=== PATIENT | female | born 1960 | race Caucasian/White ===

== ENCOUNTER → 2017-03-22 13:57 | Outpatient (POV) | payer MEDICARE, SELFPAY | PROVIDERS: Visit Provider Internal Medicine | DX: Z00.00 Encounter for general adult medical examination without abnormal findings (principal) ==

== ENCOUNTER → 2017-05-17 08:37 | Outpatient (CLI) | payer MEDICARE, SELFPAY ==
[2017-05-17 09:13] LABS: Basophils % 0.3 % (0.1-2.0); Eosinophils # 0.1 K/mm3 (0.0-0.4); Eosinophils % 1.7 % (0.1-12.0); Hematocrit 41.9 % (37.0-47.0); Hemoglobin 13.8 g/dL (12.2-16.2); Lymphocytes # 1.6 K/mm3 (0.7-4.5); Lymphocytes % 24.5 K/mm3 (10-50); Mean Corpuscular HGB Conc 32.9 g/dL (31.8-35.4); Mean Corpuscular Hemoglobin 30.6 pg (27.0-31.2); Mean Corpuscular Volume 93.2 fl (81-99); Mean Platelet Volume 7.7 fl (7.4-10.4); Monocytes # 0.3 K/mm3 (0.1-1.0); Monocytes % 4.4 % (1.7-9.3); Neutrophils # 4.5 K/mm3 (1.8-7.8); Neutrophils % 69.1 % (37.0-80.0); Platelet Count 196 K/mm3 (142-424); Red Cell Distribution Width 12.4 % (11.5-17.5); White Blood Count 6.6 K/mm3 (4.8-10.8)
[2017-05-17 09:23] LABS: Alanine Aminotransferase 32 U/L (12-78); Albumin Level 3.8 gm/dL (3.4-5.0); Albumin/Globulin Ratio 1.1 (1.1-1.8); Alkaline Phosphatase 73 U/L (46-116); Anion Gap 6.9 mEq/L (5-15); Aspartate Amino Transferase 22 U/L (15-37); Bilirubin,Total 0.4 mg/dL (0.2-1.0); Blood Urea Nitrogen 12 mg/dL (7-18); Carbon Dioxide 33 mmol/L (21.0-32.0); Chloride 104 mmol/L (98-107); Chol/HDL Ratio 3.4 (1-3.5); Cholesterol 158 mg/dL (140-200); Creatinine,Serum 0.77 mg/dL (0.55-1.02); Estimated Glomerular Filt Rate 77 ml/min (>60); GFR (African American) 93 ML/MIN (>60); Globulin 3.6 gm/dl (1.3-3.2); Glucose 104 mg/dL (74-106); HDL Cholesterol 46 mg/dL (29-89); Iron 61 ug/dl (28-170); LDL Cholesterol 83 mg/dL (0-130); Potassium 3.9 mmoL/L (3.5-5.1); Sodium 140 mmol/L (136-145); Total Protein,Serum 7.4 gm/dL (6.4-8.2); Triglycerides 146 mg/dL (30-200); VLDL Cholesterol 29 mg/dL (0-40)
[2017-05-18 15:47] LABS: Vitamin D 25 Hydroxy 44.6 ng/mL (30.0-100.0)
== END ==
PROVIDERS: Visit Provider Family Medicine
DX: E61.1 Iron deficiency (principal); E78.2 Mixed hyperlipidemia; E87.6 Hypokalemia; E55.9 Vitamin D deficiency, unspecified
CPT/HCPCS: 36415; 80053; 80061; 82652; 83540; 85025

== ENCOUNTER → 2017-08-22 12:54 | Outpatient (CLI) | payer MEDICARE, SELFPAY ==
--- NOTE | 2017-08-22 12:58 | CT_ITS ---
CT lung screening EXAM: CT LUNG LOW DOSE WO CONTRAST HISTORY: Asymptomatic 57 year old female with 60 pack-year smoking history quit 9 years ago ITS.REASON: FORMER SMOKER ORDERING PHYSICIAN: Kevyn Fox MD PATIENT AGE: 57 years COMPARISON: 06/25/2014 TECHNIQUE: The exam was performed on a GE Light Speed [address] scanner using 2.90 mGy CTDI. A low dose helical CT CHEST was performed on a multi-detector scanner. All CT scans at the facility use one or more dose reduction, viz: automated exposure control; ma/kV adjustment per patient size (including targeted exams where dose is matched to indication; i.e. head); or iterative reconstruction technique. The LDCT was performed in a facility that meets the criteria for the screening program. Data regarding this exam was submitted to ACR which is an approved registry. The order for this exam indicates that it came as a result of a lung cancer screening counseling shard decision-making visit that included all the elements required of such a visit including smoking cessation. The radiologist interpreting this exam meets the CMS criteria for the LDCT lung cancer screening program. The exam is reported using the Lung-RADS classification scale and reported to the ACR registry. NOTE: This study was performed for the specific purposes of lung cancer screening and is not an alternative to diagnostic chest CT. RADIATION DOSE: CTDI vol(CT dose Index-volume) = 2.90mG DLP (Dose Length Product) = 101.48 mGcm FINDINGS: There are severe centrilobular emphysematous changes with bullous change in the right apex. There are scattered fibrotic areas. There is a stable 6 mm nodule in the left upper lobe centrally. This is noncalcified. A 3 mm nodules present in the left upper lobe anteriorly not readily apparent on the previous exam. This is noncalcified. Calcified granulomas present in the left lung base. An additional 4 mm noncalcified nodule present in the left lower lobe laterally. This is stable. Calcified mediastinal and hilar lymph nodes are present. Coronary artery calcifications are noted. IMPRESSION: 1. Lung RADS Category: 3, probably benign. There are stable noncalcified nodules in the left upper and left lower lobe and a new 3 mm noncalcified nodule in the left upper lobe 2. Other findings: Centrilobular emphysema. Coronary artery disease Old granulomatous disease RECOMMENDATIONS: 12 month LDCT follow-up
== END ==
PROVIDERS: PCP Family Medicine; Visit Provider Internal Medicine
DX: Z87.891 Personal history of nicotine dependence (principal); Z12.2 Encounter for screening for malignant neoplasm of respiratory organs

== ENCOUNTER → 2017-09-20 14:51 | Outpatient (POV) | payer MEDICARE, SELFPAY | PROVIDERS: PCP Family Medicine; Visit Provider Internal Medicine | DX: Z00.00 Encounter for general adult medical examination without abnormal findings (principal) ==

== ENCOUNTER → 2017-10-03 12:48 | Outpatient (CLI) | payer MEDICARE, SELFPAY ==
[2017-10-03 13:31] LABS: Hemoglobin A1C 5.9 % (0.0-7.0)
[2017-10-03 13:46] LABS: Basophils % 0.4 % (0.1-2.0); Eosinophils # 0.1 K/mm3 (0.0-0.4); Eosinophils % 1.7 % (0.1-12.0); Hematocrit 40.8 % (37.0-47.0); Hemoglobin 12.9 g/dL (12.2-16.2); Lymphocytes % 30.4 K/mm3 (10-50); Mean Corpuscular HGB Conc 31.7 g/dL (31.8-35.4); Mean Corpuscular Hemoglobin 29.5 pg (27.0-31.2); Mean Corpuscular Volume 93.1 fl (81-99); Mean Platelet Volume 7.3 fl (7.4-10.4); Monocytes # 0.4 K/mm3 (0.1-1.0); Monocytes % 5.4 % (1.7-9.3); Neutrophils # 4.1 K/mm3 (1.8-7.8); Platelet Count 209 K/mm3 (142-424); Red Blood Count 4.38 M/mm3 (4.20-5.40); Red Cell Distribution Width 12.8 % (11.5-17.5); White Blood Count 6.5 K/mm3 (4.8-10.8)
[2017-10-03 14:39] LABS: Alanine Aminotransferase 32 U/L (12-78); Albumin Level 3.8 gm/dL (3.4-5.0); Albumin/Globulin Ratio 1.2 (1.1-1.8); Alkaline Phosphatase 85 U/L (46-116); Anion Gap 5.5 mEq/L (5-15); Aspartate Amino Transferase 17 U/L (15-37); Bilirubin,Total 0.5 mg/dL (0.2-1.0); Blood Urea Nitrogen 10 mg/dL (7-18); Calcium 9.2 mg/dL (8.5-10.1); Carbon Dioxide 36 mmol/L (21.0-32.0); Chloride 105 mmol/L (98-107); Creatinine,Serum 1.02 mg/dL (0.55-1.02); Estimated Glomerular Filt Rate 55 ml/min (>60); GFR (African American) 67 ML/MIN (>60); Globulin 3.1 gm/dl (1.3-3.2); Glucose 99 mg/dL (74-106); Magnesium 2.1 mg/dL (1.4-2.2); Potassium 4.5 mmoL/L (3.5-5.1); Sodium 142 mmol/L (136-145); Total Protein,Serum 6.9 gm/dL (6.4-8.2)
== END ==
PROVIDERS: Visit Provider Internal Medicine
DX: I25.10 Atherosclerotic heart disease of native coronary artery without angina pectoris (principal); I25.5 Ischemic cardiomyopathy; E78.2 Mixed hyperlipidemia; E61.1 Iron deficiency; R06.02 Shortness of breath; Z79.899 Other long term (current) drug therapy
CPT/HCPCS: 36415; 80053; 83036; 83735; 83880; 85025

== ENCOUNTER 2017-11-07 22:06 | Observation (INO) ==
[2017-11-07 22:28] LABS: Basophils % 0.4 % (0.1-2.0); Eosinophils # 0.1 K/mm3 (0.0-0.4); Eosinophils % 1.1 % (0.1-12.0); Hematocrit 42.8 % (37.0-47.0); Hemoglobin 13.7 g/dL (12.2-16.2); Lymphocytes # 2.5 K/mm3 (0.7-4.5); Lymphocytes % 25.9 K/mm3 (10-50); Mean Corpuscular HGB Conc 32.1 g/dL (31.8-35.4); Mean Corpuscular Hemoglobin 29.6 pg (27.0-31.2); Mean Corpuscular Volume 92.2 fl (81-99); Mean Platelet Volume 7.3 fl (7.4-10.4); Monocytes # 0.6 K/mm3 (0.1-1.0); Monocytes % 6.3 % (1.7-9.3); Neutrophils # 6.5 K/mm3 (1.8-7.8); Neutrophils % 66.3 % (37.0-80.0); Platelet Count 242 K/mm3 (142-424); Red Blood Count 4.64 M/mm3 (4.20-5.40); Red Cell Distribution Width 12.7 % (11.5-17.5); White Blood Count 9.8 K/mm3 (4.8-10.8)
[2017-11-07 22:42] LABS: Alanine Aminotransferase 35 U/L (12-78); Albumin Level 3.9 gm/dL (3.4-5.0); Alkaline Phosphatase 101 U/L (46-116); Anion Gap 2.8 mEq/L (5-15); Aspartate Amino Transferase 21 U/L (15-37); Bilirubin,Total 0.4 mg/dL (0.2-1.0); Blood Urea Nitrogen 8 mg/dL (7-18); Calcium 9.3 mg/dL (8.5-10.1); Carbon Dioxide 35 mmol/L (21.0-32.0); Chloride 106 mmol/L (98-107); Glucose 111 mg/dL (74-106); Potassium 3.8 mmoL/L (3.5-5.1); Sodium 140 mmol/L (136-145); Total Protein,Serum 7.9 gm/dL (6.4-8.2)
--- NOTE | 2017-11-07 23:26 | Emergency Department Note ---
ED Disposition Clinical Impression: Acute exacerbation of chronic obstructive airways disease Dyspnea Qualifiers: Dyspnea type: unspecified Qualified Code(s): R06.00 - Dyspnea, unspecified Disposition: Admitted as Observation Condition on Discharge: Good - Critical Care Critical Care Time: No Attestation: On 11/07/17, the high probability of a clinically significant, sudden or life threatening deterioration of the following system(s) required my full and direct attention, intervention and personal management. The time I documented below is in addition to time spent performing reported procedures but includes the following listed in this critical care notation. Medical Decision Making - Medical Records Medical records reviewed: Yes: I reviewed the patient's medical records. - Cesar Inquiry Pt receiving controlled substance: No Vital Signs: 11/07/17 22:07 Temperature 98 F Temperature Source Oral Pulse Rate [Right Radial] 82 Respiratory Rate 18 Blood Pressure [Right Arm] 151/94 Blood Pressure Mean [Right Arm] 113 02 Sat by Pulse Oximetry 98 - Lab Data Lab results reviewed: Yes: I reviewed the patient's lab results. Lab Results 11/07/17 22:18: WBC 9.8, RBC 4.64, Hgb 13.7, Hct 42.8, MCV 92.2, MCH 29.6, MCHC 32.1, RDW 12.7, Plt Count 242, MPV 7.3 L, Neut % (Auto) 66.3, Lymph % (Auto) 25.9, [place] % (Auto) 6.3, Eos % (Auto) 1.1, Baso % (Auto) 0.4, Neut # (Auto) 6.5, Lymph # (Auto) 2.5, [place] # (Auto) 0.6, Eos # (Auto) 0.1, Baso # (Auto) 0.0 11/07/17 22:18: Sodium 140, Potassium 3.8, Chloride 106, Carbon Dioxide 35 H, Anion Gap 2.8 L, BUN 8, Creatinine 0.95, Estimated Creat Clear 61, Estimated GFR 60, Est GFR ( Amer) 73, Glucose 111 H, Calcium 9.3, Total Bilirubin 0.4, AST 21, ALT 35, Alkaline Phosphatase 101, Troponin I < 0.02, Total Protein 7.9, Albumin 3.9, Globulin 4.0 H, Albumin/Globulin Ratio 1.0 L Result diagrams: 11/07/17 22:18 11/07/17 22:18 Orders (Tests/Meds): ED MEDICATIONS Discontinued Medications Generic Name Dose Route Start Last Admin Trade Name Lenore PRN Reason Stop Dose Admin Methylprednisolone Sodium Succinate 125 mg 11/07/17 22:12 11/07/17 22:29 Solu-Medrol 125mg/2ml Vial IV 11/07/17 22:13 125 mg ONCE ONE Administration ORDERS Category Date Time Status XR chest 2V Stat Exams 11/07/17 22:12 Taken Lactic Acid Stat Lab 11/07/17 22:30 Received Blood Culture Stat Micro 11/07/17 22:29 Ordered - Radiology Data #1 Image(s): Chest Image Reviewed: Yes I reviewed the patient's radiology image Preliminary Findings: Normal/NAD - ECG Data Tracing #1 I reviewed this ECG and interpreted as documented below: Normal Sinus Rhythm: Yes Ischemic changes: non-specific ST-T wave changes ECG compared to prior tracings: there are no significant changes - Physician Consults Physician Consulted: dudley Reason -: Admission Resp/SOB HPI - General Chief Complaint: Shortness of Breath/Dyspnea Stated Complaint: Shortness of Breath Time Seen by Provider: 11/07/17 22:30 Mode of Arrival: EMS Limitations: No Limitations Description of Symptoms (Recalled from ER Triage Doc. by RN): Pt states she started having shortness of breath at approx 1700 today. pt states she used her ventolin inhaler with not much relief. pt wears home o2 at night. - History of Present Illness at about 1700 has generalized weakness and diaphoresis with hx of cad and copd - still with weak felling and presents to ed for gordy SCHMITT Complaint: shortness of breath Onset (ago): hour(s) Severity: moderate Known history of: COPD, other (cad) Treatment prior to arrival: bronchodilator - Related Data Home oxygen amount: 2 liters Home Medications Medication Instructions Recorded Confirmed Albuterol Sulfate [Albuterol HFA 2 puff INHALATION NEEDED PRN 11/07/17 11/07/17 Inhaler] Atorvastatin Calcium [Atorvastatin 80 mg PO DAILY 11/07/17 11/07/17 80mg Tab] Budesonide/Formoterol Fumarate 2 puff INHALATION BID 11/07/17 11/07/17 [Symbicort 160-4.5 Mcg Inhaler] Clopidogrel Bisulfate [Plavix 75mg 75 mg PO DAILY 11/07/17 11/07/17 Tab] Losartan Potassium 100 mg PO DAILY 11/07/17 11/07/17 Metoprolol Succinate 200 mg PO DAILY 11/07/17 11/07/17 Pantoprazole Sodium [Protonix 40mg 40 mg PO DAILY 11/07/17 11/07/17 tablet] Spironolactone 12.5 mg PO DAILY 11/07/17 11/07/17 Sucralfate [Sucralfate 1gm 1 gram PO DAILY 11/07/17 11/07/17 Tab] Tiotropium [place] [Spiriva 1 puff INHALATION DAILY 11/07/17 11/07/17 18mcg/puff inhaler] Allergies Allergy/AdvReac Type Severity Reaction Status Date / Time amoxicillin Allergy Intermediate I-HIVES Verified 11/07/17 22:11 [facility] History I have reviewed the patient's past medical history: Yes Medical History: Denies:: Cancer, Diabetes Mellitus Type 1, Diabetes Mellitus Type 2, MRSA Amputation: No Fractures: No - Social History Smoking Status: Current every day smoker Alcohol Intake: never - Psychiatric History Expresses thoughts of harming self/others: None Suicide Plan Description: No Plan ROS Obtained: Yes All systems reviewed & no additional complaints - Constitutional Constitutional: Denies fever(s) - Eyes Eyes: Denies change in vision - ENT Ears, Nose, Mouth, and Throat: Denies sore throat - Cardiovascular Cardiovascular: Denies chest pain, Denies palpitations - Respiratory Respiratory: Yes dyspnea, No coughing up blood - Gastrointestinal Gastrointestingal: Denies: abdominal pain - Genitourinary Female Genitourinary: Denies hematuria - Musculoskeletal Musculoskeletal: Denies joint pain - Integumentary/Breasts Skin/Breast: Denies rash - Neurologic Neurologic: Denies headache(s), Denies seizure-like activity Physical Exam - General General appearance: in no apparent distress - Head Head exam: normocephalic - Eye Eye exam: Present: PERRL, EOMI - ENT ENT exam: Present: mucous membranes dry - Neck Neck exam: Present: trachea midline - Respiratory Respiratory exam: Present: wheezes, other (dec bs bilat ). Absent: respiratory distress - Cardiovascular Cardiovascular exam: Present: regular rate, systolic murmur, +S4 - Abdominal Exam Abdominal exam: Present: soft - Extremities Exam Extremities exam: Absent: calf tenderness - Neurological Exam Neurological exam: Present: alert, oriented X3, CN II-XII intact - Psychiatric Psychiatric exam: Present: normal affect - Skin Skin exam: Absent: rash
[2017-11-08 06:19] LABS: Basophils % 0.1 % (0.1-2.0); Eosinophils % 0.2 % (0.1-12.0); Hematocrit 42.1 % (37.0-47.0); Hemoglobin 13.4 g/dL (12.2-16.2); Lymphocytes # 0.9 K/mm3 (0.7-4.5); Mean Corpuscular HGB Conc 31.8 g/dL (31.8-35.4); Mean Corpuscular Hemoglobin 29.3 pg (27.0-31.2); Mean Platelet Volume 7.4 fl (7.4-10.4); Monocytes # 0.1 K/mm3 (0.1-1.0); Monocytes % 1.3 % (1.7-9.3); Neutrophils % 87.5 % (37.0-80.0); Platelet Count 223 K/mm3 (142-424); Red Blood Count 4.57 M/mm3 (4.20-5.40); Red Cell Distribution Width 12.8 % (11.5-17.5)
[2017-11-08 06:24] LABS: Anion Gap 11.2 mEq/L (5-15); Calcium 9.4 mg/dL (8.5-10.1); Potassium 4.2 mmoL/L (3.5-5.1)
--- NOTE | 2017-11-08 07:38 | Pharmacy Consult Notes ---
[facility] Pharmacy VTE Monitoring - Patient Demographics Admission date: 11/07/17 Report Date: 11/08/17 Time: 07:38 Allergies/Adverse Reactions: Patient Allergies amoxicillin Allergy (Intermediate, Verified 11/07/17 22:11) I-HIVES Height: 1.5 m Weight: 59.591 kg Patient Problems: Current Active Problems Acute exacerbation of chronic obstructive airways disease (Acute) Dyspnea (Acute) - VTE Risk Labs: VTE Related Lab Results Hgb 13.4 g/dL (12.2-16.2) 11/08/17 06:03 Hct 42.1 % (37.0-47.0) 11/08/17 06:03 Plt Count 223 K/mm3 (142-424) 11/08/17 06:03 BUN 9 mg/dL (7-18) 11/08/17 06:03 Creatinine 0.82 mg/dL (0.55-1.02) 11/08/17 06:03 Estimated Creat Clear 69 mL/min (0-300) 11/08/17 06:03 Was VTE Risk Assessment Performed: Yes VTE Score: 3 VTE Risk Level: Low Risk Clinical Trial Participant: No - Prophylaxis VTE Prophylaxis Ordered?: Yes Types of VTE Prophylaxis: TEDS Knee High
--- NOTE | 2017-11-08 08:23 | Consult Report ---
History of Present Illness Consult date: 11/08/17 Requesting physician: Akbar Pabon Consult reason: shortness of breath Chief complaint: SOA Additional Medical History:: 1. Chronic obstructive pulmonary disease A. History of tobacco use discontinued about 8 years ago. She did smoke for about 35 years. 2. History of reflux 3. Family history of coronary artery disease in her father in his 50s. 4. Hyperlipidemia 5. CAD A. Cardiac cath, 05/2016, ANGIOGRAPHIC RESULTS: 1. The left main artery normal 2. The left anterior descending artery has a proximal concentric 80-90% stenosis followed by an additional 70% mid vessel stenosis. The first diagonal artery has a proximal 90% stenosis and is a 2 mm vessel 3. The circumflex artery is a dominant vessel and has proximal 30% stenoses. The first obtuse marginal artery has a proximal 60-70% stenosis while the second obtuse marginal artery has a long proximal to mid vessel 40% stenosis 4. The right coronary artery is a nondominant yet still large 3 mm vessel that has a proximal 99% stenosis mid vessel 99% stenosis and additional 90% stenosis. SAIGE II flow is present down the vessel. Following the revascularization right coronary artery is widely patent with SAIGE-3 flow 5. The KAMINSKI ventriculogram reveals normal 65% 6. The left ventricular end-diastolic pressure 10 mmHg IMPRESSION: 1. Critical coronary artery disease as described above 2. Successful revascularization of the subtotally occluded large nondominant right coronary artery critical disease reduced to 0% with 2 drug-eluting stents postdilated as described above 3. Severe disease in the proximal LAD 4. Successful stenting of the proximal LAD with incomplete stenting of the porcelain mid LAD due to extensive calcification and significant noncompliance 5. Normal ejection fraction 6. Normal left ventricular end-diastolic pressure PLAN: 1. Patient was loaded on Brilinta 180 mg last night however did not receive a 90 mg of Brilinta today. This will need to be continued on a twice a day schedule however will defer to [facility] 2. Patient is going directly to the [facility] in the care of Dr. Johnson Seymour with anticipated Rotablator of the proximal to mid LAD versus possible surgical revascularization 3. Risk factor modification History of present illness: 57-year-old white female with COPD, known CAD with previous coronary stenting, hypertension and hyperlipidemia presented to the emergency department last evening for continued shortness of breath despite inhaler treatment. Patient states symptoms did not improve after an hour so she came to the emergency department for further evaluation. She denies any chest pain, pressure or tightness. Denies any nausea, vomiting diaphoresis or recent fever or chills. Patient previously had extensive coronary artery disease as noted above last year with complaint of chest pain associated with it. She states she did not have any of those symptoms yesterday. She has had about a 2-3 week history of weakness with no history of syncope or blood in her stools. Patient does follow with cardiology and recently had a nuclear stress test in April or May of this year with an ejection fraction of 49% per patient with no need for further evaluation. Initial troponins returned normal. EKG is sinus with poor R-wave progression anteriorly and no acute ST segment changes. After having 2 nebulizer treatments overnight patient states she is breathing much better and back to normal. [facility] History Medical History: Reports:: Coronary Artery Disease, Hyperlipidemia, Hypertension, Myocardial Infarction Denies:: Cancer, Diabetes Mellitus Type 1, Diabetes Mellitus Type 2, MRSA Other Medical History: Reports: Arthritis Other Surgeries: Yes: Cholecystectomy Amputation: No Fractures: No - *Social History Educational Level: Completed High School Smoking Status: Former smoker Alcohol Intake: never Occupational Status: disabled Housing: house Household Members: none - Psychiatric History Expresses thoughts of harming self/others: None Suicide Plan Description: No Plan *Family Hx:: Cancer, Coronary Artery Disease Meds Home Medications Medication Instructions Recorded Confirmed Type Albuterol Sulfate [Albuterol HFA 2 puff INHALATION NEEDED PRN 11/07/17 11/08/17 History Inhaler] Atorvastatin Calcium [Atorvastatin 80 mg PO DAILY 11/07/17 11/08/17 History 80mg Tab] Budesonide/Formoterol Fumarate 2 puff INHALATION BID 11/07/17 11/08/17 History [Symbicort 160-4.5 Mcg Inhaler] Clopidogrel Bisulfate [Plavix 75mg 75 mg PO DAILY 11/07/17 11/08/17 History Tab] Losartan Potassium 100 mg PO DAILY 11/07/17 11/08/17 History Metoprolol Succinate 200 mg PO DAILY 11/07/17 11/08/17 History Pantoprazole Sodium [Protonix 40mg 40 mg PO DAILY 11/07/17 11/08/17 History tablet] Spironolactone 12.5 mg PO DAILY 11/07/17 11/08/17 History Sucralfate [Sucralfate 1gm 1 gram PO DAILY 11/07/17 11/08/17 History Tab] Tiotropium [place] [Spiriva 1 puff INHALATION DAILY 11/07/17 11/08/17 History 18mcg/puff inhaler] Aspirin [Lo-Dose Aspirin EC] 81 mg PO DAILY 11/08/17 11/08/17 History Allergies Allergy/AdvReac Type Severity Reaction Status Date / Time amoxicillin Allergy Intermediate I-HIVES Verified 11/07/17 22:11 Review of Systems - *Cardiovascular Reports shortness of breath, Reports shortness of breath with activity, Denies chest pain - *Respiratory Reports shortness of breath with activity - *Gastrointestinal Denies abdominal pain, Denies black, tarry stools - *Genitourinary Denies difficulty urinating - *Musculoskeletal Reports joint pain - *Neurologic Denies headache(s), Denies seizure-like activity Exam Vital signs and Labs for Last 24 Hours: Temp Pulse Resp BP Pulse Ox 97.6 F 85 20 114/66 96 11/08/17 04:00 11/08/17 05:57 11/08/17 04:00 11/08/17 04:00 11/08/17 05:57 Laboratory Results - last 24 hr 11/07/17 22:18: WBC 9.8, RBC 4.64, Hgb 13.7, Hct 42.8, MCV 92.2, MCH 29.6, MCHC 32.1, RDW 12.7, Plt Count 242, MPV 7.3 L, Neut % (Auto) 66.3, Lymph % (Auto) 25.9, [place] % (Auto) 6.3, Eos % (Auto) 1.1, Baso % (Auto) 0.4, Neut # (Auto) 6.5, Lymph # (Auto) 2.5, [place] # (Auto) 0.6, Eos # (Auto) 0.1, Baso # (Auto) 0.0 11/07/17 22:18: Sodium 140, Potassium 3.8, Chloride 106, Carbon Dioxide 35 H, Anion Gap 2.8 L, BUN 8, Creatinine 0.95, Estimated Creat Clear 61, Estimated GFR 60, Est GFR ( Amer) 73, Glucose 111 H, Calcium 9.3, Total Bilirubin 0.4, AST 21, ALT 35, Alkaline Phosphatase 101, Troponin I < 0.02, Total Protein 7.9, Albumin 3.9, Globulin 4.0 H, Albumin/Globulin Ratio 1.0 L 11/07/17 22:30: Lactate 0.5 11/08/17 02:49: Troponin I < 0.02 11/08/17 06:03: Troponin I < 0.02 11/08/17 06:03: WBC 8.0, RBC 4.57, Hgb 13.4, Hct 42.1, MCV 92.0, MCH 29.3, MCHC 31.8, RDW 12.8, Plt Count 223, MPV 7.4, Neut % (Auto) 87.5 H, Lymph % (Auto) 11.0, [place] % (Auto) 1.3 L, Eos % (Auto) 0.2, Baso % (Auto) 0.1, Neut # (Auto) 7.0, Lymph # (Auto) 0.9, [place] # (Auto) 0.1, Eos # (Auto) 0.0, Baso # (Auto) 0.0 11/08/17 06:03: Sodium 145, Potassium 4.2, Chloride 107, Carbon Dioxide 31, Anion Gap 11.2, BUN 9, Creatinine 0.82, Estimated Creat Clear 69, Estimated GFR 71, Est GFR ( Amer) 86, Glucose 161 H D, Calcium 9.4, Magnesium 2.1 I & O for Last 24 hours: Intake & Output 11/05/17 11/06/17 11/07/17 11/08/17 11:59 11:59 11:59 11:59 Intake Total 280 / 280 Output Total 200 / 200 Balance 80 / 80 Weight 131 lb 6 oz - *Routine Neck Exam Present: supple. Absent: JVD, carotid bruit - *Routine Respiratory Exam Present: CTA bilaterally. Absent: accessory muscle use, rales, rhonchi, wheezes - *Routine Cardiovascular Exam Present: RRR. Absent: murmur, gallop, rubs - *Routine Abdominal Exam Present: soft. Absent: tenderness, distended, guarding - *Routine Extremities Exam Absent: edema, calf tenderness - *Routine Neurological Exam Present: alert, oriented X3, moving all extremities Assessment and Plan (1) Dyspnea Current visit: Yes Status: Acute Qualifiers: Dyspnea type: unspecified Qualified Code(s): R06.00 - Dyspnea, unspecified Category: Medical Code(s): R06.00 - Dyspnea, unspecified (2) Coronary artery disease Current visit: Yes Status: Acute Category: Medical Code(s): I25.10 - Atherosclerotic heart disease of [place] coronary artery without angina pectoris (3) History of coronary artery stent placement Current visit: Yes Status: Acute Category: Surgical Code(s): Z95.5 - Presence of coronary angioplasty implant and graft (4) Hypertension Current visit: Yes Status: Acute Category: Medical Code(s): I10 - Essential (primary) hypertension (5) Hyperlipidemia Current visit: Yes Status: Acute Category: Medical Code(s): E78.5 - Hyperlipidemia, unspecified - Assessment and plan all Dx Assessment and Plan for all problems:: Shortness of breath and fatigue improved with nebulizer treatment. Normal troponins and no acute changes on EKG with recent normal stress testing. Would not recommend further cardiac workup at this time. Patient did have an echocardiogram this morning with preliminary results showing ejection fraction greater than 55% with mild valvular heart disease and right ventricular systolic pressure of 33 mmHg. Would not recommend further cardiac workup at this time. With elevated right ventricular systolic pressure patient could tolerate higher dose of diuretic therapy. 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 Okay from cardiology standpoint for discharge home.
[2017-11-08 09:00] LABS: Lymphocytes % 9 % (10-50); Monocytes % 5 % (2-9); Neutrophils % 86 % (42-76); RBC Morphology Normal; Total Cells Counted 100
--- NOTE | 2017-11-08 22:26 | Cardiology Report ---
PROCEDURE: 2-D M-mode and color Doppler study INDICATIONS FOR THE TEST: Chest pain COPD+ Heart Murmur Tobacco Smoking Palpitations Fatigue Syncope Edema Hypertension Diabetes Mellitus Rheumatic Fever SOB+PUENTES Obesity Hyperlipidemia Family History HD Additional History CAD, STENTS PATIENT INFORMATION HEIGHT: 57 WEIGHT:133 GENDER: Female B/P:151/94 2-D/M-MODE INTERPRETATION: 2-D MEASUREMENTS OBSERVED VALUES IN CMS Right Ventricular Dimension (RVDd) 1.9 Interventricular Septum (Thickness)(IVsd) 1.2 Left Ventricular Internal Dimensions(LVIDd) 4.0 Left Ventricular Posterior Wall (Thickness)(LVPWd) 0.9 Aortic Root 2.4 Aortic Cusp Separation 1.9 Left Atrial Dimensions (LAD) 3.5 2D 1. Left atrium is mildly enlarged, left ventricle is normal size, mild concentric left ventricular hypertrophy, visually estimated ejection 55% with no regional wall motion abnormality. 2. The right atrium and right ventricle are normal size and contractility. 3. The aortic valve is minimally thickened and fibrosed. 4. The mitral and tricuspid valve leaflets are minimally thickened. 5. The pulmonic valve is poorly visualized. 6. No significant pericardial effusion noted. DOPPLER INTERROGATION: Doppler interrogation of the aortic, mitral and tricuspid valvular presence of mild mitral and tricuspid regurgitation, tricuspid regurgitant jet velocity insufficient for calculation of the right ventricular systolic pressure, diastolic parameters are inconclusive. CONCLUSION: 1. Mildly enlarged left atrium, normal left ventricular size, mild concentric left ventricular hypertrophy, visually estimated ejection fraction 55% with no obvious regional wall motion abnormality, diastolic parameters are inconclusive. 2. Mild mitral and tricuspid regurgitation 3. No significant pericardial effusion noted.
== END 2017-11-08 12:22 | disposition home or self-care (01) ==
LOC: 2ND 22:06 → ER 22:06 → 2ND 23:48
PROVIDERS: ADMIT Family Medicine; ATTEND Family Medicine
CPT/HCPCS: 36415; 71020; 71046; 80048; 80053; 83605; 83735; 84484; 85007; 85025; 87040; 93005; 93306; 94640; 94760; 94761; 96374; 99284; G0378

== ENCOUNTER → 2018-02-09 13:15 | Outpatient (CLI) | payer MEDICARE, SELFPAY ==
[2018-02-09 13:44] LABS: Basophils % 0.5 % (0.1-2.0); Eosinophils # 0.1 K/mm3 (0.0-0.4); Eosinophils % 1.9 % (0.1-12.0); Hematocrit 42.2 % (37.0-47.0); Hemoglobin 13.3 g/dL (12.2-16.2); Lymphocytes % 26.4 % (10-50); Mean Corpuscular HGB Conc 31.5 g/dL (31.8-35.4); Mean Corpuscular Hemoglobin 29.2 pg (27.0-31.2); Mean Corpuscular Volume 92.8 fl (81-99); Mean Platelet Volume 7.3 fl (7.4-10.4); Monocytes # 0.4 K/mm3 (0.1-1.0); Monocytes % 5.9 % (1.7-9.3); Neutrophils # 4.8 K/mm3 (1.8-7.8); Neutrophils % 65.3 % (37.0-80.0); Platelet Count 229 K/mm3 (142-424); Red Blood Count 4.55 M/mm3 (4.20-5.40); Red Cell Distribution Width 13.2 % (11.5-17.5); White Blood Count 7.4 K/mm3 (4.8-10.8)
[2018-02-09 14:56] LABS: Alanine Aminotransferase 38 U/L (12-78); Albumin Level 3.8 gm/dL (3.4-5.0); Albumin/Globulin Ratio 1.2 (1.1-1.8); Alkaline Phosphatase 84 U/L (46-116); Anion Gap 10.1 mEq/L (5-15); Aspartate Amino Transferase 21 U/L (15-37); Bilirubin,Total 0.6 mg/dL (0.2-1.0); Blood Urea Nitrogen 10 mg/dL (7-18); Calcium 9.6 mg/dL (8.5-10.1); Carbon Dioxide 34 mmol/L (21.0-32.0); Chloride 102 mmol/L (98-107); Creatinine,Serum 0.87 mg/dL (0.55-1.02); Estimated Glomerular Filt Rate 66 ml/min (>60); GFR (African American) 80 ML/MIN (>60); Globulin 3.3 gm/dl (1.3-3.2); Glucose 102 mg/dL (74-106); Iron 68 ug/dl (28-170); Potassium 4.1 mmoL/L (3.5-5.1); Sodium 142 mmol/L (136-145); Total Protein,Serum 7.1 gm/dL (6.4-8.2)
== END ==
PROVIDERS: Internal Medicine; Visit Provider Family Medicine
DX: E78.2 Mixed hyperlipidemia (principal); E61.1 Iron deficiency; I25.5 Ischemic cardiomyopathy
CPT/HCPCS: 36415; 80053; 83540; 83880; 85025

== ENCOUNTER → 2018-04-10 13:46 | Outpatient (CLI) | payer MEDICARE, SELFPAY ==
[2018-04-10 14:00] VITALS: BP 125/72; BP 135/80; PULSE 76; PULSE 88; RESP 14; RESP 20; O2SAT 85; O2SAT 96
== END ==
PROVIDERS: PCP Family Medicine; Visit Provider Internal Medicine
DX: J96.10 Chronic respiratory failure, unspecified whether with hypoxia or hypercapnia; Z87.891 Personal history of nicotine dependence
CPT/HCPCS: 94618

== ENCOUNTER → 2018-04-11 14:32 | Outpatient (POV) | payer MEDICARE, SELFPAY | PROVIDERS: Visit Provider Internal Medicine | DX: Z00.00 Encounter for general adult medical examination without abnormal findings (principal) ==

== ENCOUNTER → 2018-05-25 12:43 | Outpatient (CLI) | payer MEDICARE, SELFPAY ==
--- NOTE | 2018-05-25 12:46 | CT_ITS ---
EXAM: CT LUNG LOW DOSE WO CONTRAST TECHNIQUE: The exam was performed on a GE Light Speed [address] scanner using 3.0 mGy CTDI. A low dose helical CT CHEST was performed on a multi-detector scanner. All CT scans at this facility use one or more dose reduction techniques, viz.: automated exposure control, ma/kV adjustment per patient size (including targeted exams where dose is matched to indication, i.e. head) or iterative reconstruction technique. The LDCT was performed in a facility that meets the criteria for the screening program. Data regarding this exam was submitted to ACR which is an approved registry. The order for this exam indicates that it came as a result of a lung cancer screening counseling shard decision-making visit that included all the elements required of such a visit including smoking cessation. The radiologist interpreting this exam meets the CMS criteria for the LDCT lung cancer screening program. The exam is reported using the Lung-RADS classification scale and reported to the ACR registry. NOTE: This study was performed for the specific purposes of lung cancer screening and is not an alternative to diagnostic chest CT. RADIATION DOSE: CTDI vol(CT dose Index-volume) = 2.9. mGy DLP (Dose Length Product) = 106.03 mGy-cm COMPARISON: August 2017 low-dose CT screening chest HISTORY: 2 pack per day for 35 years = 68 year smoking history. Quit smoking 10 years ago. Patient asymptomatic with no signs or symptoms of lung cancer. FINDINGS: Indeterminate or Suspicious Lung Nodules(Category3-4B): None Indeterminate/Non-actionable Nodules(Category2): None Benign nodules(Category1)None LUNG PARENCHYMA Emphysema: A moderate to prominent centrilobular emphysematous changes. Hyperexpansion most evident towards the apices bleb formation bullus emphysematous changes most evident here at the upper lung espinoza and apices. Left lung A stable intermediate density nodule at the left upper lobe axial slice 38 measuring up to 7 mm size fairly dense for size on the sagittal image 62 and may indeed be a developing granuloma. Stability of supports is benign or indolent nature as well.. . There is a dense calcified nodule at the periphery of the left lower lobe actually 68 compatible with a stable granuloma. Right lung Additional slightly patchy area of density is developing at the medial right lung base. Suspect it may be of area focal infiltrate or resolving inflammatory changeAlso more diffuse subtle scarring and fibrotic changes seen at the right lower lobe just along inferior to the major fissure. On axial image 67, sagittal 26 note to additional focal irregular densities here noted. Density seen to be related to the more likely inflammatory or posterior inflammatory changes here, right lung base. One area measuring up to 9 mm & the other is wispy and very small is less than 6 mm.. I favor postinflammatory changes or scarring but since these are new since prior study with slightly irregular focal density here, would recommend a follow-up CT chest in 3-4 months to confirm stability. Lung-RADS 4A assigned to these densities. With shorter-term follow-up recommended Also new small 6.5 mm pleural-based nodule at the right posterior CP angle which would benefit from short term follow-up Osseous structures unremarkable. Upper abdomen. No significant findings. Cholecystectomy. Chest wall, pleura unremarkable... MEDIASTINUM. No significant hilar nor mediastinal mass or adenopathy. Calcified granulomatous nodes. Generous collection calcified nodes subcarinal region 24 mm height X 15 mm transverse reflects such. The aorta and pulmonary artery normal contour and overall normal anatomy. Heart. Likely stents. Along with calcified coronary arteries LA
== END ==
PROVIDERS: PCP Family Medicine; Visit Provider Internal Medicine
DX: Z12.2 Encounter for screening for malignant neoplasm of respiratory organs (principal); Z87.891 Personal history of nicotine dependence

== ENCOUNTER → 2018-06-08 09:13 | Outpatient (CLI) | payer MEDICARE, SELFPAY ==
[2018-06-08 09:50] LABS: Eosinophils # 0.1 K/mm3 (0.0-0.4); Hemoglobin 13.6 g/dL (12.2-16.2); Lymphocytes # 1.9 K/mm3 (0.7-4.5); Monocytes # 0.4 K/mm3 (0.1-1.0); Red Cell Distribution Width 12.8 % (11.5-17.5)
[2018-06-08 13:58] LABS: Chloride 102 mmol/L (98-107); Potassium 3.9 mmoL/L (3.5-5.1)
[2018-06-08 14:38] LABS: Alanine Aminotransferase 29 U/L (12-78); Albumin/Globulin Ratio 1.1 (1.1-1.8); Alkaline Phosphatase 102 U/L (46-116); Anion Gap 10.9 mEq/L (5-15); Aspartate Amino Transferase 18 U/L (15-37); Bilirubin,Total 0.4 mg/dL (0.2-1.0); Blood Urea Nitrogen 9 mg/dL (7-18); Calcium 9.5 mg/dL (8.5-10.1); Carbon Dioxide 31 mmol/L (21.0-32.0); Chol/HDL Ratio 4.5 (1-3.5); Cholesterol 176 mg/dL (140-200); Estimated Glomerular Filt Rate 64 ml/min (>60); GFR (African American) 77 ML/MIN (>60); Globulin 3.5 gm/dl (1.3-3.2); Glucose 111 mg/dL (74-106); HDL Cholesterol 39 mg/dL (29-89); Iron 48 ug/dl (28-170); LDL Cholesterol 107 mg/dL (0-130); Sodium 140 mmol/L (136-145); Total Protein,Serum 7.5 gm/dL (6.4-8.2); Triglycerides 152 mg/dL (30-200); VLDL Cholesterol 30 mg/dL (0-40)
[2018-06-08 18:56] LABS: Basophils % 0.3 % (0.1-2.0); Eosinophils % 1.8 % (0.1-12.0); Hematocrit 41.6 % (37.0-47.0); Lymphocytes % 24.6 % (10-50); Mean Corpuscular HGB Conc 32.6 g/dL (31.8-35.4); Mean Corpuscular Hemoglobin 29.7 pg (27.0-31.2); Mean Corpuscular Volume 90.9 fl (81-99); Monocytes % 4.6 % (1.7-9.3); Neutrophils # 5.4 K/mm3 (1.8-7.8); Neutrophils % 68.6 % (37.0-80.0); Platelet Count 249 K/mm3 (142-424); Red Blood Count 4.57 M/mm3 (4.20-5.40); White Blood Count 7.8 K/mm3 (4.8-10.8)
[2018-06-09 23:12] LABS: Vitamin D 25 Hydroxy 40.1 ng/mL (30.0-100.0)
== END ==
PROVIDERS: Visit Provider Family Medicine
DX: E78.2 Mixed hyperlipidemia (principal); E61.1 Iron deficiency; E55.9 Vitamin D deficiency, unspecified
CPT/HCPCS: 36415; 80053; 80061; 82652; 83540; 85025

== ENCOUNTER → 2018-06-21 10:32 | Outpatient (CLI) | payer MEDICARE, SELFPAY ==
--- NOTE | 2018-06-21 10:37 | XR_ITS ---
XR chest 2V HISTORY: COPD exacerbation ITS.REASON: COPD ORDERING PHYSICIAN: Kevyn Fox MD PATIENT AGE: 58 years COMPARISON: 11/07/2017 FINDINGS: Unremarkable cardiovascular structures. There are emphysematous changes with COPD. Hyperinflation noted. No lobar consolidation or collapse. Coronary artery stents are noted. There is eventration of the hemidiaphragm. No acute bony findings. IMPRESSION: COPD/emphysema, no acute finding with no significant change
== END ==
PROVIDERS: PCP Physician Assistant; Visit Provider Internal Medicine
DX: J44.1 Chronic obstructive pulmonary disease with (acute) exacerbation (principal)
CPT/HCPCS: 71046

== ENCOUNTER 2018-07-16 22:30 | Observation (INO) ==
[2018-07-16 22:39] LABS: ABG Base Excess 8.7 mmol/L (-2.4-2.3); ABG Oxygen Saturation 93 % (90-100); ABG PH 7.37 mmol/L (7.35-7.45); ABG PO2 67.7 mmhg (80-100); ABG TCO2 35.9 mmhg (23-27)
[2018-07-16 22:41] LABS: ABG PCO2 60.5 mmhg (35.0-45.0); Allen's Test Y
[2018-07-16 22:57] LABS: Basophils % 0.3 % (0.1-2.0); Eosinophils # 0.2 K/mm3 (0.0-0.4); Eosinophils % 2.1 % (0.1-12.0); Hematocrit 39.4 % (37.0-47.0); Lymphocytes # 1.7 K/mm3 (0.7-4.5); Lymphocytes % 15.5 % (10-50); Mean Corpuscular HGB Conc 32.9 g/dL (31.8-35.4); Mean Corpuscular Hemoglobin 29.6 pg (27.0-31.2); Mean Corpuscular Volume 89.7 fl (81-99); Mean Platelet Volume 7.4 fl (7.4-10.4); Monocytes # 0.8 K/mm3 (0.1-1.0); Monocytes % 7.1 % (1.7-9.3); Neutrophils # 8.1 K/mm3 (1.8-7.8); Neutrophils % 75.1 % (37.0-80.0); Platelet Count 272 K/mm3 (142-424); White Blood Count 10.8 K/mm3 (4.8-10.8)
[2018-07-16 23:43] LABS: Alanine Aminotransferase 27 U/L (12-78); Albumin/Globulin Ratio 0.7 (1.1-1.8); Alkaline Phosphatase 86 U/L (46-116); Anion Gap 9.6 mEq/L (5-15); Aspartate Amino Transferase 21 U/L (15-37); Bilirubin,Total 0.5 mg/dL (0.2-1.0); Blood Urea Nitrogen 11 mg/dL (7-18); Carbon Dioxide 35 mmol/L (21.0-32.0); Chloride 99 mmol/L (98-107); Globulin 4.6 gm/dl (1.3-3.2); Glucose 123 mg/dL (74-106); Potassium 4.6 mmoL/L (3.5-5.1); Sodium 139 mmol/L (136-145); Total Protein,Serum 7.6 gm/dL (6.4-8.2)
[2018-07-16 23:49] LABS: Calcium 9.6 mg/dL (8.5-10.1)
--- NOTE | 2018-07-17 01:37 | Emergency Department Note ---
ED Disposition Clinical Impression: Acute exacerbation of chronic obstructive airways disease Disposition: Admitted as Observation Condition on Discharge: Good - Critical Care Critical Care Time: No Attestation: On 07/16/18, the high probability of a clinically significant, sudden or life threatening deterioration of the following system(s) required my full and direct attention, intervention and personal management. The time I documented below is in addition to time spent performing reported procedures but includes the foll owing listed in this critical care notation. Medical Decision Making - Medical Records Medical records reviewed: Yes: I reviewed the patient's medical records. - Cesar Inquiry Pt receiving controlled substance: No Vital Signs: 07/16/18 22:30 07/16/18 23:28 07/16/18 23:29 Temperature 99.7 F H Temperature Source Oral Pulse Rate 81 83 Pulse Rate [Right Radial] 93 H Respiratory Rate 20 Blood Pressure [Right Arm] 135/88 Blood Pressure Mean [Right Arm] 103 02 Sat by Pulse Oximetry 93 L Oxygen Delivery Method Nasal Cannula Oxygen Flow Rate (LPM) 4 - Lab Data Lab results reviewed: Yes: I reviewed the patient's lab results. Lab Results 07/16/18 22:38: Specimen Source R/r, ABG pH 7.37, ABG pCO2 60.5 H, ABG pO2 67.7 L, ABG HCO3 34.0 H, ABG Total CO2 35.9 H, ABG O2 Saturation 93, ABG Base Excess 8.7 H, Ashkan Test Y 07/16/18 22:51: WBC 10.8, RBC 4.40, Hgb 13.0, Hct 39.4, MCV 89.7, MCH 29.6, MCHC 32.9, RDW 13.0, Plt Count 272, MPV 7.4, Neut % (Auto) 75.1, Lymph % (Auto) 15.5, Bowie % (Auto) 7.1, Eos % (Auto) 2.1, Baso % (Auto) 0.3, Neut # (Auto) 8.1 H, Lymph # (Auto) 1.7, Bowie # (Auto) 0.8, Eos # (Auto) 0.2, Baso # (Auto) 0.0 07/16/18 22:51: Sodium 139, Potassium 4.6, Chloride 99, Carbon Dioxide 35 H, Anion Gap 9.6, BUN 11, Creatinine 0.89, Estimated Creat Clear 63, Estimated GFR 65, Est GFR ( Amer) 78, Glucose 123 H, Calcium 9.6, Total Bilirubin 0.5, AST 21, ALT 27, Alkaline Phosphatase 86, Troponin I < 0.02, Total Protein 7.6, Albumin 3.0 L, Globulin 4.6 H, Albumin/Globulin Ratio 0.7 L 07/16/18 22:51: Lactate 0.9 Result diagrams: 07/16/18 22:51 07/16/18 22:51 Orders (Tests/Meds): ED MEDICATIONS Discontinued Medications Generic Name Dose Route Start Last Admin Trade Name Freq PRN Reason Stop Dose Admin Albuterol/Ipratropium 3 ml 07/16/18 22:36 07/16/18 22:30 Duoneb 3ml Neb IH 07/16/18 22:37 3 ml ONCE ONE Administration Methylprednisolone Sodium Succinate 125 mg 07/16/18 22:36 07/16/18 22:58 Solu-Medrol 125mg/2ml Vial IV 07/16/18 22:37 125 mg ONCE ONE Administration ORDERS Category Date Time Status XR chest 2V Stat Exams 07/16/18 22:35 Taken Blood Culture Stat Micro 07/16/18 22:51 Received Arterial Blood Gas Stat RT 07/16/18 22:36 Ordered - Radiology Data #1 Image(s): Chest Image Reviewed: Yes I reviewed the patient's radiology image Preliminary Findings: Abnormal (copd) - ECG Data Tracing #1 Normal Sinus Rhythm: Yes Ischemic changes: non-specific ST-T wave changes - Physician Consults Physician Consulted: imtiaz Reason -: Admission Resp/SOB HPI - General Chief Complaint: Shortness of Breath/Dyspnea Stated Complaint: shortness of breath Time Seen by Provider: 07/16/18 23:30 Mode of Arrival: EMS Limitations: No Limitations Description of Symptoms (Recalled from ER Triage Doc. by RN): pt states she has been having increased shortness of breath x 3 days and running a low grade fever. - History of Present Illness wf with hx of copd who has progressive sob over the last few days dina with walking and no chest pain - had stents 2 yrs ago - no syncope - she has been c ompliant with meds Complaint: shortness of breath Onset (ago): day(s) Severity: moderate Exacerbating factors: exertion Known history of: COPD Associated symptoms: denies other symptoms Treatment prior to arrival: oxygen, bronchodilator - Related Data Home oxygen amount: 2 liters Home Medications Medication Instructions Recorded Confirmed Albuterol Sulfate [Albuterol HFA 2 puff INHALATION NEEDED PRN 11/07/17 07/16/18 Inhaler] Atorvastatin Calcium [Atorvastatin 80 mg PO DAILY 11/07/17 07/16/18 80mg Tab] Budesonide/Formoterol Fumarate 2 puff INHALATION BID 11/07/17 07/16/18 [Symbicort 160-4.5 Mcg Inhaler] Clopidogrel Bisulfate [Plavix 75mg 75 mg PO DAILY 11/07/17 07/16/18 Tab] Losartan Potassium 100 mg PO DAILY 11/07/17 07/16/18 Metoprolol Succinate 200 mg PO DAILY 11/07/17 07/16/18 Pantoprazole Sodium [Protonix 40mg 40 mg PO DAILY 11/07/17 07/16/18 tablet] Spironolactone 12.5 mg PO DAILY 11/07/17 07/16/18 Sucralfate [Sucralfate 1gm 1 gram PO DAILY 11/07/17 07/16/18 Tab] Tiotropium [place] [Spiriva 1 puff INHALATION DAILY 11/07/17 07/16/18 18mcg/puff inhaler] Aspirin [Lo-Dose Aspirin EC] 81 mg PO DAILY 11/08/17 07/16/18 Cholecalciferol (Vitamin D3) 50,000 unit PO DAILY 07/16/18 07/16/18 [Vitamin D3 50,000 unit Cap] Ferrous Sulfate [Ferrous Sulfate 325 mg PO DAILY 07/16/18 07/16/18 325mg Tablet] Ubidecarenone [Coq-10] 400 mg PO DAILY 07/16/18 07/16/18 Vitamin B Complex [B Complex] 1 each PO DAILY 07/16/18 07/16/18 Allergies Allergy/AdvReac Type Severity Reaction Status Date / Time amoxicillin Allergy Intermediate I-HIVES Verified 07/16/18 22:35 [facility] History - Hepatitis A Screen Drug use history?: No High risk sexual behaviors?: No History of sexually transmitted infection?: No Currently employed?: No Childcare worker?: No Do you have indoor plumbing?: Yes Do you have electricity?: Yes Attestation statement:: This patient has been screened for Hepatitis A risk factors. I have reviewed the patient's past medical history: Yes Medical History: Reports:: Chronic Obstructive Pulmonary Disease (COPD), Coronary Artery Disease, Hyperlipidemia, Hypertension, Myocardial Infarction, Ulcer Denies:: Cancer, Diabetes Mellitus Type 1, Diabetes Mellitus Type 2, MRSA Other Medical History: Reports: Arthritis Other Surgeries: Yes: Cholecystectomy Amputation: No Fractures: No - Social History Smoking Status: Former smoker Alcohol Intake: never Occupational Status: disabled Housing: house Household Members: none - Psychiatric History Expresses thoughts of harming self/others: None Suicide Plan Description: No Plan Family Hx:: Cancer, Coronary Artery Disease, Diabetes ROS Obtained: Yes All systems reviewed & no additional complaints - Constitutional Constitutional: Reports fever(s) - Eyes Eyes: Denies change in vision - ENT Ears, Nose, Mouth, and Throat: Denies sore throat - Cardiovascular Cardiovascular: Denies chest pain, Reports dyspnea - Respiratory Respiratory: No cough, Yes dyspnea, No coughing up blood - Gastrointestinal Gastrointestingal: Denies: abdominal pain - Genitourinary Female Genitourinary: Denies hematuria - Musculoskeletal Musculoskeletal: Denies joint swelling - Integumentary/Breasts Skin/Breast: Denies rash - Neurologic Neurologic: Denies seizure-like activity Physical Exam - General General appearance: alert - Head Head exam: normocephalic - Eye Eye exam: Present: PERRL, EOMI - ENT ENT exam: Present: mucous membranes dry - Neck Neck exam: Present: trachea midline - Respiratory Respiratory exam: Present: other (dec bs ). Absent: respiratory distress - Cardiovascular Cardiovascular exam: Present: regular rate, systolic murmur, +S4 - Abdominal Exam Abdominal exam: Present: soft - Extremities Exam Extremities exam: Absent: calf tenderness - Neurological Exam Neurological exam: Present: alert, oriented X3, CN II-XII intact - Psychiatric Psychiatric exam: Present: normal affect - Skin Skin exam: Absent: rash
[2018-07-17 07:01] LABS: Eosinophils % 0.2 % (0.1-12.0); Hemoglobin 12.5 g/dL (12.2-16.2); Lymphocytes # 0.9 K/mm3 (0.7-4.5); Lymphocytes % 8.4 % (10-50); Mean Corpuscular Hemoglobin 28.9 pg (27.0-31.2); Mean Corpuscular Volume 90.2 fl (81-99); Mean Platelet Volume 7.3 fl (7.4-10.4); Monocytes # 0.1 K/mm3 (0.1-1.0); Monocytes % 1.3 % (1.7-9.3); Neutrophils # 10.2 K/mm3 (1.8-7.8); Neutrophils % 90.2 % (37.0-80.0); Platelet Count 274 K/mm3 (142-424); Red Blood Count 4.32 M/mm3 (4.20-5.40); White Blood Count 11.3 K/mm3 (4.8-10.8)
[2018-07-17 07:11] LABS: Anion Gap 8.5 mEq/L (5-15); Blood Urea Nitrogen 11 mg/dL (7-18); Calcium 9.9 mg/dL (8.5-10.1); Carbon Dioxide 34 mmol/L (21.0-32.0); Chloride 101 mmol/L (98-107); Glucose 163 mg/dL (74-106); Potassium 4.5 mmoL/L (3.5-5.1); Sodium 139 mmol/L (136-145)
[2018-07-17 08:09] LABS: Lymphocytes % 8 % (10-50); Monocytes % 1 % (2-9); Neutrophils % 90 % (42-76); RBC Morphology Normal; Total Cells Counted 100
--- NOTE | 2018-07-17 08:44 | Pharmacy Consult Notes ---
[facility] Pharmacy VTE Monitoring - Patient Demographics Admission date: 07/16/18 Report Date: 07/17/18 Time: 08:44 Allergies/Adverse Reactions: Patient Allergies amoxicillin Allergy (Intermediate, Verified 07/16/18 22:35) I-HIVES Height: 1.5 m Weight: 61.037 kg Patient Problems: Current Active Problems (Updated 07/17/18 @ 01:57 by Leonardo Rizzo MD) Acute exacerbation of chronic obstructive airways disease (Acute) - VTE Risk Labs: VTE Related Lab Results Hgb 12.5 g/dL (12.2-16.2) 07/17/18 06:16 Hct 39.0 % (37.0-47.0) 07/17/18 06:16 Plt Count 274 K/mm3 (142-424) 07/17/18 06:16 BUN 11 mg/dL (7-18) 07/17/18 05:49 Creatinine 0.80 mg/dL (0.55-1.02) 07/17/18 05:49 Estimated Creat Clear 72 mL/min (50-200) 07/17/18 05:49 Was VTE Risk Assessment Performed: Yes VTE Score: 5 VTE Risk Level: Low Risk Clinical Trial Participant: No - Prophylaxis VTE Prophylaxis Ordered?: Yes Types of VTE Prophylaxis: TEDS Knee High, Pharmacological (ASPIRIN AND PLAVIX CONTINUED FROM HOME) Pharmacologic Type: Other
--- NOTE | 2018-07-17 09:54 | History & Physical Report ---
*Admission Date: 07/16/18 *Chief complaint: shortness of breath *History of present illness: Ms. Adame is a 58-year-old white female with a history of oxygen dependent COPD and coronary artery disease who completed a course of Ceftin ear and steroids 5 days ago for treatment of acute bronchitis and exacerbation of her COPD. 2 days later she began feeling a bit more short of breath and states she was jittery, foggy with her thinking, and having jerking sensations of her muscles and eyes. She complains of extreme weakness and has had difficulty getting around in her home. Her shortness of breath gradually worsened until she presented to the emergency room last evening. On evaluation in the emergency room, she was a bit hypercapnic on her blood gas but not acidotic. Her white count was normal and her chest x-ray was clear except for findings of COPD. She was admitted with exacerbation of COPD and the ER physician also felt she needed serial enzymes because of her cardiac history although she had no complaints of exertional chest pain. This morning she is feeling a little better. She is less short of breath but still feels shaky and jittery. Denies cough. No chest pain or palpitations. [facility] History Medical History: Reports:: Chronic Obstructive Pulmonary Disease (COPD), Coronary Artery Disease, Hyperlipidemia, Hypertension, Myocardial Infarction, Ulcer Denies:: Cancer, Diabetes Mellitus Type 1, Diabetes Mellitus Type 2, MRSA *Have you ever received a pneumonia vaccine?: Yes *Have you received a flu vaccine this season?: Yes Other Medical History: Reports: Arthritis Other Surgeries: Yes: Cholecystectomy Amputation: No Fractures: No - *Social History Educational Level: Completed High School Smoking Status: Former smoker Tobacco Type: cigarettes # Packs/Day (cigarettes): 2 #Yrs smoked (if former smoker): 35 Alcohol Intake: never *Occupational Status:: disabled Housing: house Household Members: none *Travel in the last 8 weeks: None - Psychiatric History Expresses thoughts of harming self/others: None Suicide Plan Description: No Plan Family Hx:: Cancer, Coronary Artery Disease, Diabetes Review of Systems - Constitutional Reports excessive sweating, Reports fatigue, Reports lack of energy, Reports weakness, Denies body ache(s), Denies chills - Eyes Reports other (eyes jerking) - ENT Denies abnormal hearing, Denies dizziness, Denies difficulty swallowing, Denies ear pain, Denies sore throat - *Cardiovascular Reports shortness of breath, Reports shortness of breath with activity, Denies chest pain, Denies leg swelling, Denies rapid, pounding, or irregular heartbeat - *Respiratory Reports shortness of breath, Reports shortness of breath with activity, Denies chest congestion, Denies cough, Denies coughing up blood - *Gastrointestinal Reports heartburn, Denies abdominal pain, Denies change in bowel habits - *Genitourinary Denies abnormal vaginal bleeding, Denies urinary incontinence, Denies urinary urgency - *Musculoskeletal Reports muscle weakness, Denies joint pain, Denies muscle cramps - Integumentary/Breasts Denies hair loss, Denies dry skin, Denies unusual bruising - *Neurologic Denies dizziness, Denies lack of coordination, Denies loss of vision, Denies seizure-like activity - Hematologic/Lymphatic Denies easy bruising Meds Home Medications Medication Instructions Recorded Confirmed Type Albuterol Sulfate [Albuterol HFA 2 puff INHALATION Q4-6H PRN 11/07/17 07/17/18 History Inhaler] Atorvastatin Calcium [Atorvastatin 80 mg PO HS 11/07/17 07/17/18 History 80mg Tab] Budesonide/Formoterol Fumarate 2 puff INHALATION BID 11/07/17 07/16/18 History [Symbicort 160-4.5 Mcg Inhaler] Clopidogrel Bisulfate [Plavix 75mg 75 mg PO DAILY 11/07/17 07/16/18 History Tab] Metoprolol Succinate 200 mg PO DAILY 11/07/17 07/16/18 History Pantoprazole Sodium [Protonix 40mg 40 mg PO DAILY 11/07/17 07/16/18 History tablet] Spironolactone 12.5 mg PO DAILY 11/07/17 07/16/18 History Sucralfate [Sucralfate 1gm 1 gram PO DAILY 11/07/17 07/17/18 History Tab] Tiotropium [place] [Spiriva 1 puff INHALATION DAILY 11/07/17 07/16/18 History 18mcg/puff inhaler] Aspirin [Lo-Dose Aspirin EC] 81 mg PO DAILY 11/08/17 07/16/18 History Cholecalciferol (Vitamin D3) 50,000 unit PO DAILY 07/16/18 07/16/18 History [Vitamin D3 50,000 unit Cap] Ferrous Sulfate [Ferrous Sulfate 325 mg PO DAILY 07/16/18 07/16/18 History 325mg Tablet] Ubidecarenone [Coq-10] 200 mg PO DAILY 07/16/18 07/17/18 History Vitamin B Complex [B Complex] 1 each PO DAILY 07/16/18 07/16/18 History Losartan Potassium 100 mg PO DAILY 07/17/18 07/17/18 History Allergies Allergy/AdvReac Type Severity Reaction Status Date / Time amoxicillin Allergy Intermediate I-HIVES Verified 07/16/18 22:35 Exam Vital signs and Labs for Last 24 Hours: Temp Pulse Resp BP Pulse Ox 98.3 F 78 18 123/76 94 L 07/17/18 07:21 07/17/18 07:40 07/17/18 07:21 07/17/18 07:21 07/17/18 07:40 Laboratory Results - last 24 hr 07/16/18 22:38: Specimen Source R/r, ABG pH 7.37, ABG pCO2 60.5 H, ABG pO2 67.7 L, ABG HCO3 34.0 H, ABG Total CO2 35.9 H, ABG O2 Saturation 93, ABG Base Excess 8.7 H, Ashkan Test Y 07/16/18 22:51: WBC 10.8, RBC 4.40, Hgb 13.0, Hct 39.4, MCV 89.7, MCH 29.6, MCHC 32.9, RDW 13.0, Plt Count 272, MPV 7.4, Neut % (Auto) 75.1, Lymph % (Auto) 15.5, Rice % (Auto) 7.1, Eos % (Auto) 2.1, Baso % (Auto) 0.3, Neut # (Auto) 8.1 H, Lymph # (Auto) 1.7, Rice # (Auto) 0.8, Eos # (Auto) 0.2, Baso # (Auto) 0.0 07/16/18 22:51: Sodium 139, Potassium 4.6, Chloride 99, Carbon Dioxide 35 H, Anion Gap 9.6, BUN 11, Creatinine 0.89, Estimated Creat Clear 63, Estimated GFR 65, Est GFR ( Amer) 78, Glucose 123 H, Calcium 9.6, Total Bilirubin 0.5, AST 21, ALT 27, Alkaline Phosphatase 86, Troponin I < 0.02, Total Protein 7.6, Albumin 3.0 L, Globulin 4.6 H, Albumin/Globulin Ratio 0.7 L 07/16/18 22:51: Lactate 0.9 07/17/18 05:49: Sodium 139, Potassium 4.5, Chloride 101, Carbon Dioxide 34 H, Anion Gap 8.5, BUN 11, Creatinine 0.80, Estimated Creat Clear 72, Estimated GFR 73, Est GFR ( Amer) 89, Glucose 163 H D, Calcium 9.9, Magnesium 2.4 H, Troponin I < 0.02 07/17/18 06:16: WBC 11.3 H, RBC 4.32, Hgb 12.5, Hct 39.0, MCV 90.2, MCH 28.9, MCHC 32.0, RDW 13.0, Plt Count 274, MPV 7.3 L, Neut % (Auto) 90.2 H, Lymph % (Auto) 8.4 L, Rice % (Auto) 1.3 L, Eos % (Auto) 0.2, Baso % (Auto) 0.0 L, Neut # (Auto) 10.2 H, Lymph # (Auto) 0.9, Rice # (Auto) 0.1, Eos # (Auto) 0.0, Baso # (Auto) 0.0, Total Counted 100, Neutrophils % (Manual) 90 H, Band Neutrophils % 1.0, Lymphocytes % (Manual) 8 L, Monocytes % (Manual) 1 L, Platelet Estimate Normal, RBC Morphology Normal 07/17/18 08:21: Troponin I < 0.02 I & O for Last 24 hours: Intake & Output 07/14/18 07/15/18 07/16/18 07/17/18 11:59 11:59 11:59 11:59 Weight 134 lb 9 oz Narrative: She is sitting up in bed wearing supplemental oxygen. She is breathing comfortably. Color is normal. She is a bit anxious. HEENT shows a cream to be atraumatic and normocephalic. Sclera conjunctive are clear. Nares patent. Oropharynx shows no oral lesions. Mucous membranes are moist. Neck is supple no thyromegaly or bruits. Lungs revealed generally diminished breath sounds but no rales, wheezes, or rhonchi. Heart is regular with no ectopy or murmurs. Abdomen is soft and nondistended with no unusual masses or tenderness. Bowel sounds are present. Extremities show no edema. Assessment and Plan (1) Acute exacerbation of chronic obstructive airways disease Current visit: Yes Status: Acute Category: Medical Code(s): J44.1 - Chronic obstructive pulmonary disease with (acute) exacerbation (2) Coronary artery disease Current visit: No Status: Chronic Category: Medical Code(s): I25.10 - Atherosclerotic heart disease of [place] coronary artery without angina pectoris (3) GERD without esophagitis Current visit: Yes Status: Acute Category: Medical Code(s): K21.9 - Gastro-esophageal reflux disease without esophagitis (4) Iron deficiency anemia Current visit: Yes Status: Acute Category: Medical Code(s): D50.9 - Iron deficiency anemia, unspecified (5) Hypertension Current visit: No Status: Chronic Category: Medical Code(s): I10 - Essential (primary) hypertension - Assessment and plan all Dx Assessment and Plan for all problems:: She is admitted with an exacerbation of her COPD. Some of her symptoms may be a manifestation of steroid withdrawal last week although she has not been on an extended course. She seems comfortable at the present time. She has had 2 sets of cardiac enzymes which are negative. She understands the need for smoking cessation. We also discussed getting back into pulmonary rehab as an outpatient. For now she will be continued on IV steroids. If she continues to do well today, she may be ready for discharge tomorrow and will need to be on a more gradual steroid taper.
--- NOTE | 2018-07-18 08:35 | Progress Note ---
<Zarina Reyes - Last Filed: 07/18/18 08:32> Internal Medicine - PN: Subj *Date: 07/18/18 *Time: 08:32 Interval history: Patient with productive cough with green sputum this a.m. Shortness of breath with activity. She is eating and drinking without problems. She ambulated in the room yesterday with shortness of breath. She does have some tremors of her hands this morning which she attributes to the steroids and duo nebs. She is has a little anxiety about going home due to the fact that she lives alone. She has had one diarrhea stool this a.m. Exam Vital signs and Labs for Last 24 Hours: Temp Pulse Resp BP Pulse Ox 97.9 F 101 H 18 118/66 94 L 07/18/18 08:00 07/18/18 08:00 07/18/18 08:00 07/18/18 08:00 07/18/18 08:00 Laboratory Results - last 24 hr 07/17/18 06:16: Iron 35 07/17/18 06:16: Total Creatine Kinase 40 07/17/18 08:21: Troponin I < 0.02 I & O for Last 24 hours: Intake & Output 07/15/18 07/16/18 07/17/18 07/18/18 11:59 11:59 11:59 11:59 Intake Total 1200 / 1200 Output Total 300 / 300 Balance 900 / 900 Weight 134 lb 9 oz 132 lb Radiology Reports for the Last 24 Hours: Chest x-ray 07/17/2018 IMPRESSION: Moderate COPD, no acute chest pathology noted - Constitutional no acute distress Comments: Appears comfortable sitting crosslegged get in the bed. Breathing appears easy. - *Routine Respiratory Exam Comments: Generally diminished breath sounds bilaterally - *Routine Cardiovascular Exam Present: RRR - *Routine Abdominal Exam Present: soft, normoactive bowel sounds. Absent: tenderness - *Routine Extremities Exam Present: full ROM. Absent: edema, calf tenderness - *Routine Neurological Exam Present: alert, oriented X3 Assessment and Plan (1) Acute exacerbation of chronic obstructive airways disease Current visit: Yes Status: Acute Category: Medical Code(s): J44.1 - Chronic obstructive pulmonary disease with (acute) exacerbation (2) Coronary artery disease Current visit: No Status: Chronic Category: Medical Code(s): I25.10 - Atherosclerotic heart disease of [place] coronary artery without angina pectoris (3) GERD without esophagitis Current visit: Yes Status: Acute Category: Medical Code(s): K21.9 - Gastro-esophageal reflux disease without esophagitis (4) Iron deficiency anemia Current visit: Yes Status: Acute Category: Medical Code(s): D50.9 - Iron deficiency anemia, unspecified (5) Hypertension Current visit: No Status: Chronic Category: Medical Code(s): I10 - Essential (primary) hypertension - Assessment and plan all Dx Assessment and Plan for all problems:: Probable discharge to home today. <Akbar Pabon - Last Filed: 07/18/18 22:33> Internal Medicine - PN: Subj *Date: 07/18/18 *Time: 22:31 Exam Vital signs and Labs for Last 24 Hours: Temp Pulse Resp BP Pulse Ox 98.0 F 75 18 116/67 96 07/18/18 20:00 07/18/18 20:23 07/18/18 20:00 07/18/18 20:00 07/18/18 20:00 I & O for Last 24 hours: Intake & Output 07/16/18 07/17/18 07/18/18 07/19/18 11:59 11:59 11:59 11:59 Intake Total 1200 / 1200 600 / 600 Output Total 300 / 300 Balance 900 / 900 600 / 600 Weight 134 lb 9 oz 132 lb Assessment and Plan (1) Acute exacerbation of chronic obstructive airways disease Current visit: Yes Status: Acute Category: Medical Code(s): J44.1 - Chronic obstructive pulmonary disease with (acute) exacerbation (2) Coronary artery disease Current visit: No Status: Chronic Category: Medical Code(s): I25.10 - Atherosclerotic heart disease of [place] coronary artery without angina pectoris (3) GERD without esophagitis Current visit: Yes Status: Acute Category: Medical Code(s): K21.9 - Gastro-esophageal reflux disease without esophagitis (4) Iron deficiency anemia Current visit: Yes Status: Acute Category: Medical Code(s): D50.9 - Iron deficiency anemia, unspecified (5) Hypertension Current visit: No Status: Chronic Category: Medical Code(s): I10 - Essential (primary) hypertension (6) Anxiety disorder due to medical condition Current visit: Yes Status: Acute Category: Medical Code(s): F06.4 - Anxiety disorder due to known physiological condition - Assessment and plan all Dx Assessment and Plan for all problems:: Patient seen and examined. SHe feels better but still dyspneic with exertion. Wean to oral steroids today. Start Celexa for her anxiety. Would benefit from outpt Pulmonary Rehab.
--- NOTE | 2018-07-19 08:12 | Progress Note ---
<Velma Staples - Last Filed: 07/19/18 08:10> Internal Medicine - PN: Subj *Date: 07/19/18 *Time: 08:10 Interval history: Patient states she is feeling a little bit better today. She still has some phlegm that she is unable to cough up. She continues with diarrhea. She was able to eat her breakfast. She is requesting an incentive spirometer. Exam Vital signs and Labs for Last 24 Hours: Temp Pulse Resp BP Pulse Ox 98.3 F 96 H 17 114/68 96 07/19/18 07:34 07/19/18 07:34 07/19/18 07:34 07/19/18 07:34 07/19/18 07:34 I & O for Last 24 hours: Intake & Output 07/16/18 07/17/18 07/18/18 07/19/18 11:59 11:59 11:59 11:59 Intake Total 1200 / 1200 1080 / 1080 Output Total 300 / 300 Balance 900 / 900 1080 / 1080 Weight 134 lb 9 oz 132 lb 133 lb Microbiology Reports for the Last 24 Hours: Microbiology 07/16/18 22:51 Blood Blood Culture - Preliminary NO GROWTH AFTER 48 HOURS 07/16/18 22:51 Blood Blood Culture - Preliminary NO GROWTH AFTER 48 HOURS - Constitutional no acute distress - *Routine Respiratory Exam Present: decreased breath sounds. Absent: rales, wheezes - *Routine Cardiovascular Exam Present: RRR - *Routine Abdominal Exam Present: soft, normoactive bowel sounds. Absent: tenderness - *Routine Extremities Exam Absent: cyanosis, clubbing, edema - *Routine Skin Exam Present: warm. Absent: rash - *Routine Neurological Exam Present: alert, oriented X3 Assessment and Plan (1) Acute exacerbation of chronic obstructive airways disease Current visit: Yes Status: Acute Category: Medical Code(s): J44.1 - Chronic obstructive pulmonary disease with (acute) exacerbation (2) Coronary artery disease Current visit: No Status: Chronic Category: Medical Code(s): I25.10 - Atherosclerotic heart disease of [place] coronary artery without angina pectoris (3) GERD without esophagitis Current visit: Yes Status: Acute Category: Medical Code(s): K21.9 - Gastro-esophageal reflux disease without esophagitis (4) Iron deficiency anemia Current visit: Yes Status: Acute Category: Medical Code(s): D50.9 - Iron deficiency anemia, unspecified (5) Hypertension Current visit: No Status: Chronic Category: Medical Code(s): I10 - Essential (primary) hypertension (6) Anxiety disorder due to medical condition Current visit: Yes Status: Acute Category: Medical Code(s): F06.4 - Anxiety disorder due to known physiological condition - Assessment and plan all Dx Assessment and Plan for all problems:: We will get a diarrhea panel today and start patient on some Mucinex and incentive spirometer. Possible discharge. Will discuss with Dr. Pabon. <Akbar Pabon - Last Filed: 07/19/18 09:26> Internal Medicine - PN: Subj *Date: 07/19/18 *Time: 09:22 Exam Vital signs and Labs for Last 24 Hours: Temp Pulse Resp BP Pulse Ox 98.3 F 96 H 17 114/68 96 07/19/18 07:34 07/19/18 07:34 07/19/18 07:34 07/19/18 07:34 07/19/18 08:17 I & O for Last 24 hours: Intake & Output 07/16/18 07/17/18 07/18/18 07/19/18 11:59 11:59 11:59 11:59 Intake Total 1200 / 1200 1080 / 1080 Output Total 300 / 300 Balance 900 / 900 1080 / 1080 Weight 134 lb 9 oz 132 lb 133 lb Microbiology Reports for the Last 24 Hours: Microbiology 07/16/18 22:51 Blood Blood Culture - Preliminary NO GROWTH AFTER 48 HOURS 07/16/18 22:51 Blood Blood Culture - Preliminary NO GROWTH AFTER 48 HOURS Assessment and Plan (1) Acute exacerbation of chronic obstructive airways disease Current visit: Yes Status: Acute Category: Medical Code(s): J44.1 - Chronic obstructive pulmonary disease with (acute) exacerbation (2) Coronary artery disease Current visit: No Status: Chronic Category: Medical Code(s): I25.10 - Atherosclerotic heart disease of [place] coronary artery without angina pectoris (3) GERD without esophagitis Current visit: Yes Status: Acute Category: Medical Code(s): K21.9 - Gastro-esophageal reflux disease without esophagitis (4) Iron deficiency anemia Current visit: Yes Status: Acute Category: Medical Code(s): D50.9 - Iron deficiency anemia, unspecified (5) Hypertension Current visit: No Status: Chronic Category: Medical Code(s): I10 - Essential (primary) hypertension (6) Anxiety disorder due to medical condition Current visit: Yes Status: Acute Category: Medical Code(s): F06.4 - Anxiety disorder due to known physiological condition - Assessment and plan all Dx Assessment and Plan for all problems:: She rested fairly well. Has been tolerating activity in the room. She reports PUENTES but sats remain in 90s. Appetite is good. She is stable for discharge although she is still somewhat anxious. SHe is agreeable to continue the Celexa. Will obtain diarrhea panel prior to discharge and then arrange for outpatient Pulmonary Rehab.
--- NOTE | 2018-07-19 09:14 | Discharge Summary ---
General - General Admission date:: 07/17/18 Discharge date: 07/19/18 HPI HPI: Ms. Adame is a 58-year-old white female with a history of oxygen dependent COPD and coronary artery disease who completed a course of Ceftin ear and steroids 5 days ago for treatment of acute bronchitis and exacerbation of her COPD. 2 days later she began feeling a bit more short of breath and states she was jittery, foggy with her thinking, and having jerking sensations of her muscles and eyes. She complains of extreme weakness and has had difficulty getting around in her home. Her shortness of breath gradually worsened until she presented to the emergency room last evening. On evaluation in the emergency room, she was a bit hypercapnic on her blood gas but not acidotic. Her white count was normal and her chest x-ray was clear except for findings of COPD. She was admitted with exacerbation of COPD and the ER physician also felt she needed serial enzymes because of her cardiac history although she had no complaints of exertional chest pain. Hospital Course Hospital Course: Patient began feeling better and was less short of breath. She denied any chest pain or palpitations. She continued to remain jittery and Dr. Pabon felt some of this may be due to steroid withdrawal. She had 2 sets of cardiac enzymes which were negative. Dr. Pabon discussed smoking cessation with the patient as well as getting back into pulmonary rehab on an outpatient basis. She was started on duo nebs and IV steroids. She was able to ambulate around the room but did have some shortness of breath. She had some hand tremors which she attributed to steroids and duo nebs. She was a little anxious about going home due to the fact that she lives alone. She was started on some Celexa for anxiety. Her IV steroids were weaned. She did begin feeling better. She had some phlegm she was unable to cough up, therefore she was given a dose of Mucinex. She developed diarrhea after her last round of oral antibiotics. A diarrhea panel was ordered and is still pending. She was stable to be discharged home on a tapering dose of steroids and her normal inhalers. She also has nebs at home she will use. She will follow-up with Dr. Pabon the office [facility]. Objective Vital signs: Temp Pulse Resp BP Pulse Ox 98.3 F 96 H 17 114/68 96 07/19/18 07:34 07/19/18 07:34 07/19/18 07:34 07/19/18 07:34 07/19/18 08:17 Narrative: - Constitutional no acute distress - *Routine Respiratory Exam Present: decreased breath sounds. Absent: rales, wheezes - *Routine Cardiovascular Exam Present: RRR - *Routine Abdominal Exam Present: soft, normoactive bowel sounds. Absent: tenderness - *Routine Extremities Exam Absent: cyanosis, clubbing, edema - *Routine Skin Exam Present: warm. Absent: rash - *Routine Neurological Exam Present: alert, oriented X3 Results Labs on day of discharge: Preliminary micro results at discharge 07/16/18 22:51 Blood Culture - Preliminary Blood NO GROWTH AFTER 48 HOURS 07/16/18 22:51 Blood Culture - Preliminary Blood NO GROWTH AFTER 48 HOURS DS: Diagnosis - Discharge Diagnosis (1) Acute exacerbation of chronic obstructive airways disease Status: Acute (2) Coronary artery disease Status: Chronic (3) GERD without esophagitis Status: Acute (4) Iron deficiency anemia Status: Acute (5) Hypertension Status: Chronic (6) Anxiety disorder due to medical condition Status: Acute Discharge Plan - Patient Discharge Instructions DIET: continue same diet Patient Instructions: DI for Chronic Obstructive Pulmonary Disease - Follow up Plan Follow up with: Akbar Pabon MD [Primary Care Provider] - 07/31/18 Disposition: Home, Self-Retirement Medications: Home Medications Medication Instructions Recorded Confirmed Type Albuterol Sulfate [Albuterol HFA 2 puff INHALATION Q4-6H PRN 11/07/17 07/17/18 History Inhaler] Atorvastatin Calcium [Atorvastatin 80 mg PO HS 11/07/17 07/17/18 History 80mg Tab] Budesonide/Formoterol Fumarate 2 puff INHALATION BID 11/07/17 07/16/18 History [Symbicort 160-4.5 Mcg Inhaler] Clopidogrel Bisulfate [Plavix 75mg 75 mg PO DAILY 11/07/17 07/16/18 History Tab] Metoprolol Succinate 200 mg PO DAILY 11/07/17 07/16/18 History Pantoprazole Sodium [Protonix 40mg 40 mg PO DAILY 11/07/17 07/16/18 History tablet] Spironolactone 12.5 mg PO DAILY 11/07/17 07/16/18 History Sucralfate [Sucralfate 1gm 1 gram PO DAILY 11/07/17 07/17/18 History Tab] Tiotropium Joshua [Spiriva 1 puff INHALATION DAILY 11/07/17 07/16/18 History 18mcg/puff inhaler] Aspirin [Lo-Dose Aspirin EC] 81 mg PO DAILY 11/08/17 07/16/18 History Cholecalciferol (Vitamin D3) 50,000 unit PO DAILY 07/16/18 07/16/18 History [Vitamin D3 50,000 unit Cap] Ferrous Sulfate [Ferrous Sulfate 325 mg PO DAILY 07/16/18 07/16/18 History 325mg Tablet] Ubidecarenone [Coq-10] 200 mg PO DAILY 07/16/18 07/17/18 History Vitamin B Complex [B Complex] 1 each PO DAILY 07/16/18 07/16/18 History Losartan Potassium 100 mg PO DAILY 07/17/18 07/17/18 History Citalopram Hydrobromide [Celexa 10 mg PO DAILY #30 tab 07/19/18 Rx 10mg Tablet] guaiFENesin [Mucinex 600mg tablet] 600 mg PO BID #20 tab.er.12h 07/19/18 Rx predniSONE [Deltasone 10mg tablet] 10 mg PO DIRECTED #18 tab 07/19/18 Rx Prescriptions/Medication Reconciliation: New Citalopram Hydrobromide [Celexa 10mg Tablet] 10 mg PO DAILY #30 tab predniSONE [Deltasone 10mg tablet] 10 mg PO DIRECTED #18 tab guaiFENesin [Mucinex 600mg tablet] 600 mg PO BID #20 tab.er.12h Continued Tiotropium Joshua [Spiriva 18mcg/puff inhaler] 1 puff INHALATION DAILY Sucralfate [Sucralfate 1gm Tab] 1 gram PO DAILY Spironolactone 12.5 mg PO DAILY Pantoprazole Sodium [Protonix 40mg tablet] 40 mg PO DAILY Metoprolol Succinate 200 mg PO DAILY Clopidogrel Bisulfate [Plavix 75mg Tab] 75 mg PO DAILY Budesonide/Formoterol Fumarate [Symbicort 160-4.5 Mcg Inhaler] 2 puff INHALATION BID Atorvastatin Calcium [Atorvastatin 80mg Tab] 80 mg PO HS Albuterol Sulfate [Albuterol HFA Inhaler] 2 puff INHALATION Q4-6H PRN PRN Reason: Shortness Of Breath Aspirin [Lo-Dose Aspirin EC] 81 mg PO DAILY Cholecalciferol (Vitamin D3) [Vitamin D3 50,000 unit Cap] 50,000 unit PO DAILY Ferrous Sulfate [Ferrous Sulfate 325mg Tablet] 325 mg PO DAILY Vitamin B Complex [B Complex] 1 each PO DAILY Losartan Potassium 100 mg PO DAILY Ubidecarenone [Coq-10] 200 mg PO DAILY
== END 2018-07-19 14:40 | disposition home or self-care (01) ==
LOC: 2ND 22:30 → ER 22:30 → 2ND 07-17 02:06
PROVIDERS: ADMIT Family Medicine; ATTEND Family Medicine
CPT/HCPCS: 71020; 71046; 80048; 80053; 82550; 82803; 83540; 83605; 83735; 84484; 85007; 85025; 87040; 87507; 93005; 94640; 94761; 96374; 99284; G0378

== ENCOUNTER → 2018-10-10 14:30 | Outpatient (POV) | payer MEDICARE, SELFPAY | PROVIDERS: Visit Provider Internal Medicine | DX: Z00.00 Encounter for general adult medical examination without abnormal findings (principal) ==

== ENCOUNTER → 2018-11-01 12:38 | Outpatient (CLI) | payer MEDICARE, SELFPAY ==
--- NOTE | 2018-11-01 12:42 | CT_ITS ---
PROCEDURE: CT CHEST WO CON Follow-up pulmonary nodules CLINICAL INDICATION: MULTIPLE LUNG NODULES COMPARISON: [facility] CT CHEST W/O CONTRAST from 06/25/2014 TECHNIQUE: Axial images obtained with sagittal and coronal reformats. All CT scans at the facility use one or more dose reduction, viz: automated exposure control, ma/kV adjustment per patient size (including targeted exams where dose is matched to indication, i.e. head), or iterative reconstruction technique. FINDINGS: There is diffuse centrilobular and panlobular emphysematous change. There is an aberrant right subclavian artery. No mediastinal or hilar mass or adenopathy. There are few stable small mediastinal lymph nodes. No aortic aneurysm. There are coronary artery calcifications and calcified nodes in the mediastinum. There is minimal pericardial thickening nonspecific. Small hiatal hernia noted. Diffuse centrilobular and panlobular emphysema is present with scattered areas of scarring. There is a 7 mm stable nodule within the left upper lobe. A new 4 mm nodules present in the left upper lobe series 3, image 34. There is calcified granuloma in the left lower lobe. No central obstructing lesions are evident. No central obstructing lesions are evident. No acute bony anomalies. IMPRESSION: 1. Centrilobular and panlobular emphysema with COPD and old granulomatous disease. 2. No change in the 7 mm nodule in the left upper lobe. 3. There is a new 4 mm nodule left upper lobe. Six-month follow-up suggested 4. Coronary artery calcification Dictated by: Ashkan Gautam MD 11/03/2018 05:37 Electronically signed by Ashkan Gautam MD in [place] 11/03/2018 05:37
== END ==
PROVIDERS: Visit Provider Internal Medicine
DX: R91.8 Other nonspecific abnormal finding of lung field (principal); J44.9 Chronic obstructive pulmonary disease, unspecified; J96.10 Chronic respiratory failure, unspecified whether with hypoxia or hypercapnia
CPT/HCPCS: 71250; 94618

== ENCOUNTER → 2020-04-21 16:28 | Outpatient (CLI) | payer MEDICARE, SELFPAY ==
--- NOTE | 2020-04-21 16:35 | XR_ITS ---
PROCEDURE: XR THORACIC SPINE 3V CLINICAL INDICATION: PAIN Thoracic spine pain COMPARISON: CT CT CHEST WO CON from 11/01/2018 FINDINGS: There is minimal thoracic curvature convex right. There is mild compression change involving T8 and T7 with loss of height anteriorly of approximately 15-20 percent. These findings have developed since 11/01/2018. There is mild multilevel degenerative disc disease. Coronary artery stents are present. IMPRESSION: Degenerative changes with mild wedge compression changes of T8 and T7 which have developed since 11/01/2018. MRI may provide further evaluation to determine the acuteness if clinically warranted Dictated by: Ashkan Gautam MD 04/21/2020 17:19 Ashkan Gautam MD in [place] 04/21/2020 17:19
== END ==
PROVIDERS: PCP Family Medicine; Visit Provider Family Medicine
DX: M54.6 Pain in thoracic spine (principal)
CPT/HCPCS: 72072

== ENCOUNTER 2020-07-31 09:38 | Inpatient (IN) | payer MEDICARE, MEDICAID, SELFPAY ==
[2020-07-31] VITALS (13 sets, daily range): BP systolic 96–130; BP diastolic 54–73; PULSE 69–87; RESP 3–28; TEMP 36.7–37.1; O2SAT 90–99; BMI 25.0; BMI 25.7
--- NOTE | 2020-07-31 09:39 | XR_ITS ---
PROCEDURE: XR CHEST PORTABLE CLINICAL HISTORY: soa COMPARISON: CR CXR CHEST(2 VIEWS-NOT PORTABLE) from 08/30/2016 CR CXR2V XR chest 2V from 11/07/2017 CR Chest from 07/16/[address] CHEST WO CON from 11/01/2018 FINDINGS: The cardiomediastinal silhouette and pulmonary vascularity are within normal limits. COPD changes. Calcified granuloma left lower lobe. Coronary artery stent is present on the left. No acute bony abnormalities. IMPRESSION: COPD. No change with no acute finding Dictated by: Ashkan Gautam MD 07/31/2020 10:16 Ashkan Gautam MD in [place] 07/31/2020 10:16
--- NOTE | 2020-07-31 09:40 | ECG_ITS ---
APPROVED REPORT Exam: Resting ECG HR:73 bpm ECG Measurements Heart Rate 73 AXES AL 106 P 83 QRSd 60 QRS 40 QT 396 T 66 QTc 436 Conclusion Sinus rhythm with short AL Old septal changes Abnormal ECG Electronically signed by : Caden Delgadillo, 08/02/2020 11:00:39
--- NOTE | 2020-07-31 10:06 | [facility].EDGENADL ---
ED Disposition Clinical Impression: Hypercapnic respiratory failure, COPD exacerbation Disposition: Admitted as Observation Condition on Discharge: Good Referrals: Provider,Referral, [Primary Care Provider] - - Critical Care Critical Care Time: No Attestation: On 07/31/20, the high probability of a clinically significant, sudden or life threatening deterioration of the following system(s) required my full and direct attention, intervention and personal management. The time I documented below is in addition to time spent performing reported procedures but includes the following listed in this critical care notation. Medical Decision Making - Medical Records Medical records reviewed: Yes: I reviewed the patient's medical records. - Cesar Inquiry Pt receiving controlled substance: No Vital Signs: 07/31/20 09:38 07/31/20 10:19 07/31/20 10:30 Temperature 98.8 F Temperature Source Oral Pulse Rate 74 79 Pulse Rate [Right] 72 Respiratory Rate 21 22 Blood Pressure 103/57 L 121/73 Blood Pressure [Right Arm] 119/58 L Blood Pressure Mean [Right Arm] 78 Blood Pressure Source Automatic Cuff Blood Pressure Source [Right Arm] Automatic Cuff Blood Pressure Position Sitting Blood Pressure Position [Right Arm] Sitting 02 Sat by Pulse Oximetry 98 98 99 Oxygen Delivery Method Room Air Nasal Cannula Oxygen Flow Rate (LPM) 3 3 - Lab Data Lab Results 07/31/20 09:39: VBG pH 7.35, VBG pCO2 88.4 H, VBG pO2 45.3 H, VBG HCO3 48.0 H, VBG Total CO2 50.8 H, VBG O2 Saturation 86.8 H, VBG Base Excess 22.5 H 07/31/20 10:00: WBC 13.0 H, RBC 3.93 L, Hgb 11.9 L, Hct 38.2, MCV 97.4, MCH 30.4, MCHC 31.2 L, RDW 12.6, Plt Count 140 L, MPV 8.0, Neut % (Auto) 89.1 H, Lymph % (Auto) 7.1 L, [place] % (Auto) 2.2, Eos % (Auto) 1.3, Baso % (Auto) 0.3, Neut # (Auto) 11.6 H, Lymph # (Auto) 0.9, [place] # (Auto) 0.3, Eos # (Auto) 0.2, Baso # (Auto) 0.0, Total Counted 100, Neutrophils % (Manual) 80 H, Lymphocytes % (Manual) 18, Monocytes % (Manual) 2, Platelet Estimate Slight decrease, RBC Morphology Normal 07/31/20 10:00: Sodium 137, Potassium 4.8, Chloride 88 L, Carbon Dioxide 43 H*, Anion Gap 10.8, BUN 12, Creatinine 0.50 L, Estimated Creat Clear 52, Estimated GFR 125, Est GFR ( Amer) 151, Glucose 193 H, Calcium 9.2 Result diagrams: 07/31/20 10:00 07/31/20 10:00 Orders (Tests/Meds): ED MEDICATIONS Generic Name Dose Route Start Last Admin Trade Name Freq PRN Reason Stop Dose Admin Acetaminophen 650 mg 07/31/20 10:42 Acetaminophen 325mg Tab PO 08/30/20 10:41 Q4HP PRN Fever or Mild Pain Albuterol/Ipratropium 3 ml 07/31/20 09:45 Ipratropium/Albuterol 3 Ml Neb IH 08/30/20 09:44 Q1H YASMEEN Azithromycin 500 mg/ Sodium 250 mls @ 250 mls/hr 07/31/20 10:00 07/31/20 10:19 Chloride IV 08/14/20 09:59 250 mls/hr Q24H YASMEEN Administration Protocol Ibuprofen 400 mg 07/31/20 10:42 Ibuprofen 400 Mg Tablet PO 08/30/20 10:41 Q6HP PRN Mild Pain Pantoprazole Sodium 40 mg 08/01/20 09:00 Pantoprazole 40mg Tablet PO 08/31/20 08:59 DAILY YASMEEN Discontinued Medications Generic Name Dose Route Start Last Admin Trade Name Freq PRN Reason Stop Dose Admin Dexamethasone Sodium Phosphate 10 mg 07/31/20 09:56 07/31/20 10:21 Dexamethasone 4mg/Ml 1ml Vial IV 07/31/20 09:57 10 mg ONCE ONE Administration ORDERS Category Date Time Status Basic Metabolic Panel [facility] Lab 08/01/20 06:00 Ordered Complete Blood Count Auto Diff [facility]AB Lab 08/01/20 06:00 Ordered Full Resp Panel w/COVID ([facility]) Routine Lab 07/31/20 10:39 Ordered Lipid Panel [facility]AB Lab 08/01/20 06:00 Ordered Magnesium [facility]AB Lab 08/01/20 06:00 Ordered Phosphorous AMLAB Lab 08/01/20 06:00 Ordered Medical Decision Narrative: 60-year-old female with history of COPD presents with shortness of air. She is mildly tachypneic and requiring increased oxygenation. Vital signs stable and she is otherw
[2020-07-31 10:08] LABS: Basophils % 0.3 % (0.1-2.0); Eosinophils # 0.2 K/mm3 (0.0-0.4); Eosinophils % 1.3 % (0.1-12.0); Hematocrit 38.2 % (37.0-47.0); Hemoglobin 11.9 g/dL (12.2-16.2); Lymphocytes # 0.9 K/mm3 (0.7-4.5); Lymphocytes % 7.1 % (10-50); Mean Corpuscular HGB Conc 31.2 g/dL (31.8-35.4); Mean Corpuscular Hemoglobin 30.4 pg (27.0-31.2); Mean Corpuscular Volume 97.4 fl (81-99); Monocytes # 0.3 K/mm3 (0.1-1.0); Monocytes % 2.2 % (1.7-9.3); Neutrophils # 11.6 K/mm3 (1.8-7.8); Neutrophils % 89.1 % (37.0-80.0); Platelet Count 140 K/mm3 (142-424); Red Blood Count 3.93 M/mm3 (4.20-5.40); Red Cell Distribution Width 12.6 % (11.5-17.5)
[2020-07-31 10:10] LABS: MANUAL DIFFERENTIAL MANUAL DIFFERENTIAL (MANUAL DIFF)
[2020-07-31 10:15] LABS: Chloride 88 mmol/L (98-107); Sodium 137 mmol/L (136-145)
[2020-07-31 10:16] LABS: VBG Base Excess 22.5 mmol/L (-2.4-2.3); VBG Oxygen Saturation 86.8 % (50-70); VBG PH 7.35 mmol/L (7.31-7.41); VBG PO2 45.3 mmol/L (28-40); VBG Total CO2 50.8 mmol/L (23-27)
[2020-07-31 10:16] LABS: Potassium 4.8 mmoL/L (3.5-5.1)
[2020-07-31 10:19] LABS: Blood Urea Nitrogen 12 mg/dl (7-17); Calcium 9.2 mg/dl (8.4-10.2); Creatinine Clearance Estimated 52 mL/min (50-200); Estimated Glomerular Filt Rate 125 ml/min (>60); GFR (African American) 151 ML/MIN (>60); Glucose 193 mg/dl (74-100)
[2020-07-31 10:19] LABS: VBG PCO2 88.4 mmol/L (35-51)
[2020-07-31 10:22] LABS: Lymphocytes % 18 % (10-50); Monocytes % 2 % (2-9); Neutrophils % 80 % (42-76); Platelet Estimate Slight Decrease; RBC Morphology Normal; Total Cells Counted 100
[2020-07-31 10:30] LABS: Anion Gap 10.8 mEq/L (5-15); Carbon Dioxide 43 mmol/L (22.0-30.0)
--- NOTE | 2020-07-31 10:30 | PC.NURSE ---
Md aware of critical lab of co2 44 and aware of venous blood gas
--- NOTE | 2020-07-31 10:39 | PC.NURSE ---
Calling Dr Pabon
--- NOTE | 2020-07-31 10:39 | PC.NURSE ---
Dr Cardozo speaking with Dr Pabon at this time.
[2020-07-31 10:45] LABS: Adenovirus,PCR Not Detected (NotDetected); Bordetella Pertussis Not Detected (NotDetected); Chlamydophila Pneumoniae, PCR Not Detected (NotDetected); Coronavirus 19, PCR Not Detected (NotDetected); Coronavirus 229E Not Detected (NotDetected); Coronavirus NL63 Not Detected (NotDetected); Coronavirus OC43 Not Detected (NotDetected); Coronovirus HKU1,PCR Not Detected (NotDetected); Human Metapneumovirus Not Detected (NotDetected); Influenza A, PCR Not Detected (NotDetected); Influenza AH1, 2009 Not Detected (NotDetected); Influenza AH1, PCR Not Detected (NotDetected); Influenza AH3,PCR Not Detected (NotDetected); Influenza B, PCR Not Detected (NotDetected); Mycoplasma Pneumoniae, PCR Not Detected (NotDetected); Parainfluenza 1, PCR Not Detected (NotDetected); Parainfluenza 2, PCR Not Detected (NotDetected); Parainfluenza 3, PCR Not Detected (NotDetected); Parainfluenza 4, PCR Not Detected (NotDetected); Respiratory Syncytial Virus Not Detected (NotDetected); Rhinovirus/Enterovirus Not Detected (NotDetected)
--- NOTE | 2020-07-31 10:47 | PC.NURSE ---
respiratory called for patient to be placed on bipap. pateint states that she is sick to stomach. meche ordered for nausea.
--- NOTE | 2020-07-31 13:07 | PC.NURSE ---
called dietary and ordered patient cardiac diet tray
--- NOTE | 2020-07-31 13:26 | PC.NURSE ---
Velma Staples at bedside at this time.
--- NOTE | 2020-07-31 13:35 | PC.NURSE ---
called report to 2nd floor [facility]
--- NOTE | 2020-07-31 14:12 | HMH.HP ---
*Admission Date: 07/31/20 <Velma Staples 07/31/20 14:27> *Chief complaint: SOA <Velma Staples 07/31/20 14:27> *History of present illness: Ms. day is a 60-year-old female with a history of oxygen dependent COPD, history of NSTEMI, hyperlipidemia, and osteoporosis who is been feeling poorly for quite a while. She states she is normally on 2-1/2 L of oxygen at all times at home. Up until this morning, her oxygen was in the upper 90s on 2-1/2 L. She states she began having more shortness of breath along with a cough. She has had some rhinorrhea. She states the shortness of breath worsened at the first part of the week and she thinks she was hallucinating and had difficulty walking onTuesday. She states in the middle of the night last night she woke up and could not breathe. Her oxygen had fallen off and she could not find it. She checked her oxygen and it was 64% on room air. She then called 911 and was transported to the hospital. Her white blood cell count was elevated and her PCO2 was elevated at 88.4. Her chest x-ray showed COPD but nothing acute. It was felt she would need admission along with BiPAP for CO2 retention. <Velma Staples 07/31/20 14:27> [facility] History I have reviewed the patient's past medical history: Yes <Velma Staples 07/31/20 14:27> Medical History: Reports:: Chronic Obstructive Pulmonary Disease (COPD), Coronary Artery Disease, Hyperlipidemia, Hypertension, Myocardial Infarction, Ulcer Denies:: Cancer, Diabetes Mellitus Type 1, Diabetes Mellitus Type 2, MRSA <Velma Staples 07/31/20 14:27> *Have you ever received a pneumonia vaccine?: Yes <Velma Staples 07/31/20 14:27> *Have you received a flu vaccine this season?: Yes <Velma Staples 07/31/20 14:27> Other Medical History: Reports: Arthritis <Velma Staples 07/31/20 14:27> Other Surgeries: Yes: Cardiac Catheterization, Cholecystectomy <Velma Staples 07/31/20 14:27> Amputation: No <Velma Staples 07/31/20 14:27> Fractures: No <Velma Staples 07/31/20 14:27> - *Social History Smoking Status: Former smoker <Velma Staples 07/31/20 14:27> Tobacco Type: cigarettes <Velma Staples 07/31/20 14:27> # Packs/Day (cigarettes): 2 <Velma Staples 07/31/20 14:27> #Yrs smoked (if former smoker): 35 <Velma Staples 07/31/20 14:27> Alcohol Intake: never <Velma Staples 07/31/20 14:27> *Occupational Status:: disabled <Velma Staples 07/31/20 14:27> Housing: house <Velma Staples 07/31/20 14:27> Household Members: none <Velma Staples 07/31/20 14:27> *Travel in the last 8 weeks: None <Velma Staples 07/31/20 14:27> Family Hx:: Cancer, Coronary Artery Disease, Diabetes <Velma Staples 07/31/20 14:27> Review of Systems - Constitutional Reports fatigue, Reports weakness, Denies fever(s) <Velma Staples 07/31/20 14:27> - Eyes Denies blurry vision, Denies double vision <Velma Staples 07/31/20 14:27> - ENT Reports nasal congestion, Denies sore throat <Velma Staples 07/31/20 14:27> - *Cardiovascular Reports shortness of breath, Reports shortness of breath with activity, Denies chest pain, Denies leg swelling <Velma Staples 07/31/20 14:27> - *Respiratory Reports chest congestion, Reports cough <Velma Staples 07/31/20 14:27> - *Gastrointestinal Reports nausea, Denies abdominal pain, Denies loose stools, Denies vomiting <Velma Staples 07/31/20 14:27> - *Genitourinary Denies difficulty urinating, Denies painful urination <Velma Staples 07/31/20 14:27> - *Musculoskeletal Denies joint pain <Velma Staples 07/31/20 14:27> - *Neurologic Reports weakness, Denies dizziness, Denies headache(s), Denies sensory deficit, Denies tingling <Velma Staples - 07/31/20 14:27> Meds Home Medications Medication Instructions Recorded Confirmed Type Albuterol Sulfate [Ventolin HFA 2 puff INHALATION Q4-6H PRN 11/07/17 07/31/20 History Inhaler] Atorvastatin Calcium [Lipitor 80mg 80 mg PO HS
--- NOTE | 2020-07-31 14:35 | PC.NURSE ---
Pt arrived to the floor at this time
--- NOTE | 2020-07-31 17:38 | PC.NURSE ---
PT IS AOX4, ABLE TO MAKE NEEDS KNOWN TO STAFF, SHE HAS RESTED IN BED SINCE ARRIVAL TO UNIT, HAS REQUIRED 3LNC FOR O2 SUPPORT, PT STATES THAT SHE FEELS TIRED, ABD IS SOFT ROUND AND NON-TENDER, DENIES N/V/D, SHE SEEMS TO HAVE DECREASED APPETITE.
--- NOTE | 2020-07-31 18:04 | HMH.ACPN2 ---
Internal Medicine - PN: Subj *Date: 07/31/20 *Time: 18:04 Interval history: On evening rounds, patient noted to be very somnolent. She will arouse and answer questions but repeats herself frequently and drifts off to sleep. Exam Vital signs and Labs for Last 24 Hours: Temp Pulse Resp BP Pulse Ox 98.0 F 78 20 130/73 90 L 07/31/20 15:05 07/31/20 15:05 07/31/20 15:05 07/31/20 15:05 07/31/20 15:05 Laboratory Results - last 24 hr 07/31/20 09:39: VBG pH 7.35, VBG pCO2 88.4 H, VBG pO2 45.3 H, VBG HCO3 48.0 H, VBG Total CO2 50.8 H, VBG O2 Saturation 86.8 H, VBG Base Excess 22.5 H 07/31/20 10:00: WBC 13.0 H, RBC 3.93 L, Hgb 11.9 L, Hct 38.2, MCV 97.4, MCH 30.4, MCHC 31.2 L, RDW 12.6, Plt Count 140 L, MPV 8.0, Neut % (Auto) 89.1 H, Lymph % (Auto) 7.1 L, [place] % (Auto) 2.2, Eos % (Auto) 1.3, Baso % (Auto) 0.3, Neut # (Auto) 11.6 H, Lymph # (Auto) 0.9, [place] # (Auto) 0.3, Eos # (Auto) 0.2, Baso # (Auto) 0.0, Total Counted 100, Neutrophils % (Manual) 80 H, Lymphocytes % (Manual) 18, Monocytes % (Manual) 2, Platelet Estimate Slight decrease, RBC Morphology Normal 07/31/20 10:00: Sodium 137, Potassium 4.8, Chloride 88 L, Carbon Dioxide 43 H*, Anion Gap 10.8, BUN 12, Creatinine 0.50 L, Estimated Creat Clear 52, Estimated GFR 125, Est GFR ( Amer) 151, Glucose 193 H, Calcium 9.2 07/31/20 10:40: Chlamy pneumoniae PCR Not detected, Adenovirus (PCR) Not detected, B. pertussis DNA (PCR) Not detected, Coronavirus OC43 (PCR) Not detected, Coronavirus HKU1 (PCR) Not detected, Coronavirus 229E (PCR) Not detected, SARS-CoV-2 (PCR) Not detected, Coronavirus NL63 (PCR) Not detected, Human Metapneumovir PCR Not detected, Influenza A (H1) PCR Not detected, Influ A (H1N1/09) PCR Not detected, Influenza A (H3) PCR Not detected, Influenza Type A (PCR) Not detected, Influenza Type B (PCR) Not detected, M. pneumoniae (PCR) Not detected, Parainfluenza 1 (PCR) Not detected, Parainfluenza 2 (PCR) Not detected, Parainfluenza 3 (PCR) Not detected, Parainfluenza 4 (PCR) Not detected, RSV (PCR) Not detected, Entero/Rhino (PCR) Not detected I & O for Last 24 hours: Intake & Output 07/29/20 07/30/20 07/31/20 08/01/20 11:59 11:59 11:59 11:59 Intake Total 480 / 480 Balance 480 / 480 Weight 124 lb 127 lb 6 oz Microbiology Reports for the Last 24 Hours: Microbiology 07/31/20 11:00 Sputum - Expectorated Sputum Gram Stain - Final Narrative: She is somnolent. Oriented to name and place. No respiratory distress. Breath sounds are generally diminished with scattered rhonchi. No wheezes. Extremities no edema Assessment and Plan (1) Acute exacerbation of chronic obstructive pulmonary disease (COPD) Status: Acute Category: Medical Code(s): J44.1 - Chronic obstructive pulmonary disease with (acute) exacerbation (2) Hypercapnic respiratory failure Status: Acute Category: Medical Code(s): J96.92 - Respiratory failure, unspecified with hypercapnia (3) Anxiety disorder due to medical condition Status: Chronic Category: Medical Code(s): F06.4 - Anxiety disorder due to known physiological condition (4) GERD without esophagitis Status: Chronic Category: Medical Code(s): K21.9 - Gastro-esophageal reflux disease without esophagitis (5) Iron deficiency anemia Status: Chronic Category: Medical Code(s): D50.9 - Iron deficiency anemia, unspecified (6) Coronary artery disease Status: Chronic Category: Medical Code(s): I25.10 - Atherosclerotic heart disease of [place] coronary artery without angina pectoris (7) History of coronary artery stent placement Status: Chronic Category: Surgical Code(s): Z95.5 - Presence of coronary angioplasty implant and graft (8) Hyperlipidemia Status: Chronic Category: Medical Code(s): E78.5 - Hyperlipidemia, unspecified (9) Hypertension Status: Chronic Category: Medical Code(s): I10 - Essential (primary) hypertension - Assessment and plan all Dx Asse
[2020-08-01] VITALS (12 sets, daily range): BP systolic 102–115; BP diastolic 55–70; PULSE 66–89; RESP 14–24; TEMP 36.7–36.9; O2SAT 92–100; BMI 26.6
[2020-08-01 02:09] LABS: POC Glucose,Bedside 156 (70-110)
--- NOTE | 2020-08-01 04:57 | PC.NURSE ---
pt was very lethargic at beginning of shift. during assessment sternal rub was performed to pt responded to pain and began to follow commands. fsbs was checked and was 156. bipap was placed on patient. patient has become more alert throughout the shift and able to assist with needs. iv patent. o2 sat remain above 90%. vss. call light in reach. will continue to monitor
[2020-08-01 06:54] LABS: ABG Base Excess 18.8 mmol/L (-2.4-2.3); ABG HCO3 43.9 mmhg (22.0-26.0); ABG Oxygen Saturation 94 % (90-100); ABG PH 7.38 mmol/L (7.35-7.45); ABG PO2 69.3 mmhg (80-100); ABG TCO2 46.3 mmhg (23-27)
[2020-08-01 07:00] LABS: ABG PCO2 76.3 mmhg (35.0-45.0); Allen's Test Acceptable; Source Right Radial
--- NOTE | 2020-08-01 08:06 | HMH.PHAVTE ---
[facility] VTE Monitoring - Patient Demographics Admission date: 07/31/20 Report Date: 08/01/20 Time: 08:06 Allergies/Adverse Reactions: Patient Allergies amoxicillin Allergy (Intermediate, Verified 07/16/18 22:35) BELIA Height: 1.5 m Weight: 60.101 kg Patient Problems: Current Active Problems Coronary artery disease (Chronic) History of coronary artery stent placement (Chronic) Hypertension (Chronic) Hyperlipidemia (Chronic) Acute exacerbation of chronic obstructive pulmonary disease (COPD) (Acute) GERD without esophagitis (Chronic) Iron deficiency anemia (Chronic) Anxiety disorder due to medical condition (Chronic) Hypercapnic respiratory failure (Acute) - VTE Risk Labs: VTE Related Lab Results Hgb 11.9 g/dL (12.2-16.2) L 07/31/20 10:00 Hct 38.2 % (37.0-47.0) 07/31/20 10:00 Plt Count 140 K/mm3 (142-424) L 07/31/20 10:00 BUN 12 mg/dl (7-17) 07/31/20 10:00 Creatinine 0.50 mg/dl (0.52-1.04) L 07/31/20 10:00 Estimated Creat Clear 52 mL/min (50-200) 07/31/20 10:00 Clinical Trial Participant: No - Prophylaxis VTE Prophylaxis Ordered?: Yes Types of VTE Prophylaxis: TEDS Knee High
[2020-08-01 08:12] LABS: Eosinophils % 0.2 % (0.1-12.0); Hematocrit 35.9 % (37.0-47.0); Hemoglobin 11.6 g/dL (12.2-16.2); Lymphocytes # 0.9 K/mm3 (0.7-4.5); Mean Corpuscular HGB Conc 32.4 g/dL (31.8-35.4); Mean Corpuscular Hemoglobin 30.5 pg (27.0-31.2); Mean Corpuscular Volume 94.2 fl (81-99); Mean Platelet Volume 9.3 fl (7.4-10.4); Monocytes # 0.2 K/mm3 (0.1-1.0); Monocytes % 2.2 % (1.7-9.3); Neutrophils # 7.7 K/mm3 (1.8-7.8); Neutrophils % 87.6 % (37.0-80.0); Platelet Count 143 K/mm3 (142-424); Red Blood Count 3.81 M/mm3 (4.20-5.40); Red Cell Distribution Width 12.7 % (11.5-17.5); White Blood Count 8.8 K/mm3 (4.8-10.8)
[2020-08-01 08:20] LABS: Chloride 84 mmol/L (98-107); Potassium 4.7 mmoL/L (3.5-5.1); Sodium 136 mmol/L (136-145)
[2020-08-01 08:23] LABS: Blood Urea Nitrogen 21 mg/dl (7-17); Cholesterol 174 mg/dl (140-200); Creatinine Clearance Estimated 55 mL/min (50-200); Estimated Glomerular Filt Rate 85 ml/min (>60); GFR (African American) 103 ML/MIN (>60); Phosphorous 3.6 mg/dl (2.5-4.5); Triglycerides 128 mg/dl (30-150); VLDL Cholesterol 26 mg/dL (0-40)
[2020-08-01 08:24] LABS: Calcium 9.5 mg/dl (8.4-10.2); Chol/HDL Ratio 4.1 (1-3.5); Glucose 122 mg/dl (74-100); HDL Cholesterol 42 mg/dl (40-60); Magnesium 2.1 mg/dl (1.6-2.3)
[2020-08-01 08:26] LABS: MANUAL DIFFERENTIAL MANUAL DIFFERENTIAL (MANUAL DIFF)
[2020-08-01 08:31] LABS: Anion Gap 7.7 mEq/L (5-15)
[2020-08-01 08:32] LABS: Carbon Dioxide 49 mmol/L (22.0-30.0)
--- NOTE | 2020-08-01 08:41 | HMH.ACPN2 ---
<Velma Staples - Last Filed: 08/01/20 08:41> Internal Medicine - PN: Subj *Date: 08/01/20 *Time: 08:41 Interval history: Patient states she is feeling a little bit better today. She wore BiPAP all night and is much more awake and alert. She still says she is short of breath. She denies any pain. She states she is hungry this morning. Exam Vital signs and Labs for Last 24 Hours: Temp Pulse Resp BP Pulse Ox 98.2 F 80 18 102/55 L 94 L 08/01/20 04:00 08/01/20 06:38 08/01/20 04:00 08/01/20 04:00 08/01/20 08:00 Laboratory Results - last 24 hr 07/31/20 09:39: VBG pH 7.35, VBG pCO2 88.4 H, VBG pO2 45.3 H, VBG HCO3 48.0 H, VBG Total CO2 50.8 H, VBG O2 Saturation 86.8 H, VBG Base Excess 22.5 H 07/31/20 10:00: WBC 13.0 H, RBC 3.93 L, Hgb 11.9 L, Hct 38.2, MCV 97.4, MCH 30.4, MCHC 31.2 L, RDW 12.6, Plt Count 140 L, MPV 8.0, Neut % (Auto) 89.1 H, Lymph % (Auto) 7.1 L, [place] % (Auto) 2.2, Eos % (Auto) 1.3, Baso % (Auto) 0.3, Neut # (Auto) 11.6 H, Lymph # (Auto) 0.9, [place] # (Auto) 0.3, Eos # (Auto) 0.2, Baso # (Auto) 0.0, Total Counted 100, Neutrophils % (Manual) 80 H, Lymphocytes % (Manual) 18, Monocytes % (Manual) 2, Platelet Estimate Slight decrease, RBC Morphology Normal 07/31/20 10:00: Sodium 137, Potassium 4.8, Chloride 88 L, Carbon Dioxide 43 H*, Anion Gap 10.8, BUN 12, Creatinine 0.50 L, Estimated Creat Clear 52, Estimated GFR 125, Est GFR ( Amer) 151, Glucose 193 H, Calcium 9.2 07/31/20 10:40: Chlamy pneumoniae PCR Not detected, Adenovirus (PCR) Not detected, B. pertussis DNA (PCR) Not detected, Coronavirus OC43 (PCR) Not detected, Coronavirus HKU1 (PCR) Not detected, Coronavirus 229E (PCR) Not detected, SARS-CoV-2 (PCR) Not detected, Coronavirus NL63 (PCR) Not detected, Human Metapneumovir PCR Not detected, Influenza A (H1) PCR Not detected, Influ A (H1N1/09) PCR Not detected, Influenza A (H3) PCR Not detected, Influenza Type A (PCR) Not detected, Influenza Type B (PCR) Not detected, M. pneumoniae (PCR) Not detected, Parainfluenza 1 (PCR) Not detected, Parainfluenza 2 (PCR) Not detected, Parainfluenza 3 (PCR) Not detected, Parainfluenza 4 (PCR) Not detected, RSV (PCR) Not detected, Entero/Rhino (PCR) Not detected 07/31/20 21:40: POC Glucose 156 H 08/01/20 07:58: WBC 8.8 D, RBC 3.81 L, Hgb 11.6 L, Hct 35.9 L, MCV 94.2, MCH 30.5, MCHC 32.4, RDW 12.7, Plt Count 143, MPV 9.3, Neut % (Auto) 87.6 H, Lymph % (Auto) 10.0, [place] % (Auto) 2.2, Eos % (Auto) 0.2, Baso % (Auto) 0.0 L, Neut # (Auto) 7.7, Lymph # (Auto) 0.9, [place] # (Auto) 0.2, Eos # (Auto) 0.0, Baso # (Auto) 0.0 08/01/20 07:58: Sodium 136, Potassium 4.7, Chloride 84 L, Carbon Dioxide 49 H*, Anion Gap 7.7, BUN 21 H D, Creatinine 0.70 D, Estimated Creat Clear 55, Estimated GFR 85, Est GFR ( Amer) 103 D, Glucose 122 H D, Calcium 9.5, Phosphorus 3.6, Magnesium 2.1, Triglycerides 128, Cholesterol 174, LDL Cholesterol Direct 94.40 L, VLDL Cholesterol 26, HDL Cholesterol 42, Cholesterol/HDL Ratio 4.1 H 08/01/20 : Specimen Source Right radial, O2 % 3lpm nc, ABG pH 7.38, ABG pCO2 76.3 H, ABG pO2 69.3 L, ABG HCO3 43.9 H, ABG Total CO2 46.3 H, ABG O2 Saturation 94, ABG Base Excess 18.8 H, [place] Test Acceptable I & O for Last 24 hours: Intake & Output 07/29/20 07/30/20 07/31/20 08/01/20 11:59 11:59 11:59 11:59 Intake Total 480 / 480 Balance 480 / 480 Weight 124 lb 132 lb 8 oz Microbiology Reports for the Last 24 Hours: Microbiology 07/31/20 11:00 Sputum - Expectorated Sputum Gram Stain - Final 07/31/20 11:00 Sputum - Expectorated Sputum Sputum Culture - Preliminary - Constitutional no acute distress - *Routine Respiratory Exam Present: decreased breath sounds - *Routine Cardiovascular Exam Present: RRR - *Routine Abdominal Exam Present: soft, normoactive bowel sounds. Absent: tenderness - *Routine Extremities Exam Absent: cyanosis, clubbing, edema - *Routine Skin Exam Present: warm. Absent: rash - *Routine Neurological Exam Pre
[2020-08-01 09:48] LABS: Lymphocytes % 14 % (10-50); Monocytes % 2 % (2-9); Neutrophils % 84 % (42-76); Platelet Estimate Normal; RBC Morphology Normal; Total Cells Counted 100
--- NOTE | 2020-08-01 12:31 | HMH.PULMCON ---
*Admission Date: 07/31/20 *Reason for consult:: Acute on chronic hypoxic and hypercarbic respiratory failure *History of present illness: Ms. Adame is 60-year-old female significant smoking history last smoked 6 years ago carries a prior diagnosis COPD on triple inhaler therapy with Symbicort and Spiriva along with DuoNebs as needed presented hospital worsening respiratory failure and found to be in hypoxic hypercarbic respiratory failure initiated on BiPAP therapy and pulmonary was called for further management. Patient admits compliance with her inhalers. Denies any sick contacts. Her last admission to the hospital was in 2019. [facility] History Medical History: Reports:: Chronic Obstructive Pulmonary Disease (COPD), Coronary Artery Disease, Hyperlipidemia, Hypertension, Myocardial Infarction, Ulcer Denies:: Cancer, Diabetes Mellitus Type 1, Diabetes Mellitus Type 2, MRSA *Have you ever received a pneumonia vaccine?: No *Have you received a flu vaccine this season?: Yes Other Medical History: Reports: Arthritis Other Surgeries: Yes: Cardiac Catheterization, Cholecystectomy Amputation: No Fractures: No - *Social History Last grade of school completed: High school graduate Smoking Status: Former smoker Tobacco Type: cigarettes # Packs/Day (cigarettes): 2 #Yrs smoked (if former smoker): 35 Alcohol Intake: never *Occupational Status:: unemployed Housing: house Household Members: none *Travel in the last 8 weeks: None Family Hx:: Cancer, Coronary Artery Disease, Diabetes ROS - Cons Reports anorexia, Reports fatigue, Reports weakness - Card Reports shortness of breath, Reports shortness of breath with activity, Denies leg swelling - Resp Respiratory: Reports change in phlegm color, Reports chest congestion, Reports cough, Reports dyspnea on exertion, Reports excessive phlegm production, Reports coughing up blood, Denies pain with cough, Denies pain with breathing, Denies snoring - GI Gastrointestingal: Denies: dyspepsia - Psych Reports abnormal sleep pattern Meds Home Medications Medication Instructions Recorded Confirmed Type Albuterol Sulfate [Ventolin HFA 2 puff INHALATION Q4-6H PRN 11/07/17 07/31/20 History Inhaler] Atorvastatin Calcium [Lipitor 80mg 80 mg PO HS 11/07/17 07/31/20 History Tab] Budesonide/Formoterol Fumarate 2 puff INHALATION BID 11/07/17 07/31/20 History [Symbicort 160-4.5 Mcg Inhaler] Clopidogrel Bisulfate [Plavix 75mg 75 mg PO DAILY 11/07/17 07/31/20 History Tab] Metoprolol Succinate 200 mg PO DAILY 11/07/17 07/31/20 History Pantoprazole Sodium [Protonix 40mg 40 mg PO DAILY 11/07/17 07/31/20 History tablet] Spironolactone [Spironolactone 12.5 mg PO DAILY 11/07/17 07/31/20 History 25mg Tablet] Sucralfate [Sucralfate 1gm 1 gram PO DAILY 11/07/17 07/31/20 History Tab] Tiotropium [place] [Spiriva 1 puff INHALATION DAILY 11/07/17 07/31/20 History 18mcg/puff inhaler] Aspirin [Lo-Dose Aspirin EC] 81 mg PO DAILY 11/08/17 07/31/20 History Cholecalciferol (Vitamin D3) 50,000 unit PO DAILY 07/16/18 07/31/20 History [Vitamin D3 50,000 unit Cap] Ubidecarenone [Coq-10] 200 mg PO DAILY 07/16/18 07/31/20 History Vitamin B Complex [B Complex] 1 each PO DAILY 07/16/18 07/31/20 History Losartan Potassium 100 mg PO DAILY 07/17/18 07/31/20 History Citalopram Hydrobromide 10 mg PO HS 07/31/20 08/01/20 History [Citalopram 10mg Tablet] Allergies Allergy/AdvReac Type Severity Reaction Status Date / Time amoxicillin Allergy Intermediate I-HIVES Verified 07/16/18 22:35 Exam - Constitutional Constitutional:: Present: no acute distress, comfortable - HENMT Exam [facility]: Present: normocephalic, atraumatic - Eye Exam Eyes:: Present: normal appearance both eyes and related structures - Neck Exam Neck:: Present: normal visual inspection - Respiratory Exam Respiratory:: Present: able to speak in complete sentences, no respiratory distress, kunal
--- NOTE | 2020-08-01 13:32 | SW/DCPLANNER ---
Addendum entered by [facility] 08/05/20 14:20: Edilia with [facility] has confirmed that patient information has been reviewed and services will begin this week. Cruz Thomas will deliver to patient home/hospital room (she will call the patient prior). Patient concurs with discharging home today and does have transportation. Addendum entered by [facility] 08/05/20 12:34: I will set up home health services: PT/OT/SN with [facility]. William will set up bi-pap machine for patient once discharged later today. Addendum entered by [facility] 08/05/20 10:26: Cruz Thomas has stated that this patient does qualify for bi pap machine at home. Patient information/order has been faxed to William. Addendum entered by [facility] 08/05/20 09:46: Overnight pulse ox test has been faxed to [facility] by Yudi Maharaj. I have asked Cruz Thomas to follow up with me once reviewing to see if patient qualifies for bi pap machine at home. Addendum entered by [facility] 08/04/20 09:33: I have notified Yudi Thomas that this patient is still in house and will need overnight pulse ox in order to qualify for at home bi-pap machine. Addendum entered by [facility] 08/01/20 15:17: Patient has requested home health services at time of discharge. Patient information will be faxed to [facility] once stable for discharge or on Tuesday morning. Discharge for today has been cancelled. Original Note: Dr Olivares called asking if I could set this patient up with a bi-pap machine. Due to not having a overnight pulse ox in house per Yudi Thomas this can not be completed. I have relayed information to Dr Olivares and he stated that he would speak with Dr Pabon: he is fine with patient discharging over weekend to be set up for overnight pulse ox as an outpatient. I have also informed Abdulkadir Thomas of situation and she has stated that she will follow up with Dr Olivares. This patient could discharge home over the weekend. Patient currently has home O2 thru [facility].
--- NOTE | 2020-08-01 14:42 | HMH.DCSUM ---
General - General Admission date:: 07/31/20 Discharge date: 08/01/20 HPI HPI: Ms. Adame is a 60-year-old female with a history of oxygen dependent COPD, history of NSTEMI, hyperlipidemia, and osteoporosis who has been feeling poorly for quite a while. She states she is normally on 2-1/2 L of oxygen at all times at home. Up until this morning, her oxygen was in the upper 90s on 2-1/2 L. She states she began having more shortness of breath along with a cough. She has had some rhinorrhea. She states the shortness of breath worsened at the first part of the week and she thinks she was hallucinating and had difficulty walking on Tuesday. She states in the middle of the night last night, she woke up and could not breathe. Her oxygen had fallen off and she could not find it. She checked her oxygen and it was 64% on room air. She then called 911 and was transported to the hospital. Her white blood cell count was elevated and her PCO2 was elevated at 88.4. Her chest x-ray showed COPD but nothing acute. It was felt she would need admission along with BiPAP for CO2 retention. Hospital Course Hospital Course: The patient was admitted. Pulmonology was consulted and she was started on Zithromax and DuoNebs along with BiPAP. She came off of her BiPAP machine, but on evening rounds, was noted to be very somnolent, therefore an ABG was ordered. Her CO2 was elevated and she was placed back on BiPAP. She did well on BiPAP throughout the night and was much more alert and oriented on the morning of 08/01/2020. She remained short of breath. Pulmonology saw the patient and felt she should have doxycycline for total of 5 days as well as prednisone 40 mg daily for a total of 5 days. He also recommended initiating long-term BiPAP therapy and obtaining an outpatient sleep study evaluation. He wanted her to continue her Symbicort and Spiriva along with duo nebs every 6 hours and planned to follow-up with her on an outpatient basis. He felt the patient was stable to be discharged home. Objective Vital signs: Temp Pulse Resp BP Pulse Ox 98.5 F 83 19 111/64 97 08/01/20 08:00 08/01/20 08:00 08/01/20 08:00 08/01/20 08:00 08/01/20 08:00 Narrative: - Constitutional no acute distress - *Routine Respiratory Exam Present: decreased breath sounds - *Routine Cardiovascular Exam Present: RRR - *Routine Abdominal Exam Present: soft, normoactive bowel sounds. Absent: tenderness - *Routine Extremities Exam Absent: cyanosis, clubbing, edema - *Routine Skin Exam Present: warm. Absent: rash - *Routine Neurological Exam Present: alert, oriented X3 Results Labs on day of discharge: Labs from last 24 hours 08/01/20 08/01/20 08/01/20 Unknown 07:58 07:58 WBC 8.8 D RBC 3.81 L Hgb 11.6 L Hct 35.9 L MCV 94.2 MCH 30.5 MCHC 32.4 RDW 12.7 Plt Count 143 MPV 9.3 Neut % (Auto) 87.6 H Lymph % (Auto) 10.0 [place] % (Auto) 2.2 Eos % (Auto) 0.2 Baso % (Auto) 0.0 L Neut # (Auto) 7.7 Lymph # (Auto) 0.9 [place] # (Auto) 0.2 Eos # (Auto) 0.0 Baso # (Auto) 0.0 Total Counted 100 Neutrophils % (Manual) 84 H Lymphocytes % (Manual) 14 Monocytes % (Manual) 2 Platelet Estimate Normal RBC Morphology Normal Specimen Source Right radial O2 % 3lpm nc ABG pH 7.38 ABG pCO2 76.3 H ABG pO2 69.3 L ABG HCO3 43.9 H ABG Total CO2 46.3 H ABG O2 Saturation 94 ABG Base Excess 18.8 H Ashkan Test Acceptable Sodium 136 Potassium 4.7 Chloride 84 L Carbon Dioxide 49 H* Anion Gap 7.7 BUN 21 H D Creatinine 0.70 D Estimated Creat Clear 55 Estimated GFR 85 Est GFR ( Amer) 103 D Glucose 122 H D POC Glucose Calcium 9.5 Phosphorus 3.6 Magnesium 2.1 Triglycerides 128 Cholesterol 174 LDL Cholesterol Direct 94.40 L VLDL Cholesterol 26 HDL Cholesterol 42 Cholesterol/HDL R
--- NOTE | 2020-08-01 16:57 | PC.NURSE ---
PT IS SITTING UP IN THE BED. NO COMPLAINTS OF DISCOMFORT. PT HAS BEEN ALERT/ORIENTED AND MOUNA TALKATIVE T/O THE SHIFT. O2 SATURATION HAS MAINTAINED 93-97% ON 3 L NC. PT WAS ABLE TO TOLERATE SITTING UP IN THE CHAIR FOR SEVERAL HOURS THIS MORNING . PT WAS A STANDBY ASSIST TO GET OOB TO CHAIR. STATED THAT HE TALKED WITH AND PT COULD BE DISCHARGED. WHEN BEING DISCHARGED WAS BROUGHT TO PT'S ATTENTION SHE STATED I AM NOT WELL ENOUGH TO GO HOME PT STATED SHE COULD NOT WALK AND WAS NOT COMFORTABLE BEING AT HOME BY HERSELF. PT'S SISTER WAS IN THE ROOM AND SHE STATED SHE WOULD LIKE FOR PT TO HAVE HOME HEALTH WHEN SHE IS DISCHARGED. PT WAS OKAY WITH HOME DEIDRA BUT SHE ALSO STATED SHE WANTED TO STAY IN THE HOSPITAL FOR AT LEAST 3 MORE DAYS. NOTIFIED AND ASHLEY FROM CARE MANAGEMENT WHO CAME TO TALK WITH PT AT BEDSIDE AND HAS BEEN COMMUNICATING WITH . DECISION WAS MADE TO CANCEL DISCHARGE AND KEEP PT OVERNIGHT. PT COULD POSSIBLE BE DISCHARGED TOMORROW. PT IS A STANDBY ASSIST AMBULATING TO THE BATHROOM BUT IS SOMEWHAT UNSTEADY. VSS. LUNG SOUNDS DIMINISHED. ABDOMEN SOFT/NON TENDER WITH ACTIVE BOWEL SOUNDS. NO SWELLING NOTED TO BLE. WILL CONTINUE TO MONITOR.
[2020-08-02] VITALS (14 sets, daily range): BP systolic 98–116; BP diastolic 56–64; PULSE 68–84; RESP 14–19; TEMP 36.6–36.9; O2SAT 90–100; BMI 25.4
--- NOTE | 2020-08-02 04:37 | PC.NURSE ---
Patient oriented times four. Patient wore BiPAP from 2245 to 0430. Patient in no acute respiratory distress. Patient refused Celexa citing It makes me hallucinate Patient resting comfortably most of this shift. Will continue to monitor for any acute changes.
--- NOTE | 2020-08-02 08:36 | HMH.ACPN2 ---
<Velma Staples - Last Filed: 08/02/20 08:36> Internal Medicine - PN: Subj *Date: 08/02/20 *Time: 08:36 Interval history: Patient was discharged yesterday but last night she was difficult to arouse and had altered mental status likely due to hypercapnia. She was placed on BiPAP throughout the night and is doing better this morning. She still have some episodes of confusion. She denies any pain but states she is still short of breath. She did eat breakfast this morning. Exam Vital signs and Labs for Last 24 Hours: Temp Pulse Resp BP Pulse Ox 98.4 F 84 19 115/63 96 08/02/20 07:36 08/02/20 07:36 08/02/20 07:36 08/02/20 07:36 08/02/20 07:36 Laboratory Results - last 24 hr 08/01/20 07:58: Total Counted 100, Neutrophils % (Manual) 84 H, Lymphocytes % (Manual) 14, Monocytes % (Manual) 2, Platelet Estimate Normal, RBC Morphology Normal 08/01/20 07:58: LDL Cholesterol Direct 94.40 L I & O for Last 24 hours: Intake & Output 07/30/20 07/31/20 08/01/20 08/02/20 11:59 11:59 11:59 11:59 Intake Total 840 / 840 1154 / 1154 Balance 840 / 840 1154 / 1154 Weight 124 lb 132 lb 4.438 oz 126 lb Microbiology Reports for the Last 24 Hours: Microbiology 07/31/20 11:00 Sputum - Expectorated Sputum Gram Stain - Final 07/31/20 11:00 Sputum - Expectorated Sputum Sputum Culture - Preliminary - Constitutional no acute distress - *Routine Respiratory Exam Present: decreased breath sounds, wheezes (Faint) - *Routine Cardiovascular Exam Present: RRR - *Routine Abdominal Exam Present: soft, normoactive bowel sounds. Absent: tenderness - *Routine Extremities Exam Absent: cyanosis, clubbing, edema - *Routine Skin Exam Present: warm. Absent: rash - *Routine Neurological Exam Present: alert, oriented X3 Assessment and Plan (1) Acute exacerbation of chronic obstructive pulmonary disease (COPD) Status: Acute Category: Medical Code(s): J44.1 - Chronic obstructive pulmonary disease with (acute) exacerbation (2) Hypercapnic respiratory failure Status: Acute Category: Medical Code(s): J96.92 - Respiratory failure, unspecified with hypercapnia (3) Anxiety disorder due to medical condition Status: Chronic Category: Medical Code(s): F06.4 - Anxiety disorder due to known physiological condition (4) GERD without esophagitis Status: Chronic Category: Medical Code(s): K21.9 - Gastro-esophageal reflux disease without esophagitis (5) Iron deficiency anemia Status: Chronic Category: Medical Code(s): D50.9 - Iron deficiency anemia, unspecified (6) Coronary artery disease Status: Chronic Category: Medical Code(s): I25.10 - Atherosclerotic heart disease of [place] coronary artery without angina pectoris (7) History of coronary artery stent placement Status: Chronic Category: Surgical Code(s): Z95.5 - Presence of coronary angioplasty implant and graft (8) Hyperlipidemia Status: Chronic Category: Medical Code(s): E78.5 - Hyperlipidemia, unspecified (9) Hypertension Status: Chronic Category: Medical Code(s): I10 - Essential (primary) hypertension - Assessment and plan all Dx Assessment and Plan for all problems:: Disposition is going to be a problem as patient is going to require BiPAP at home. She will have to have a sleep study before this can be done, and [facility] will not have the equipment until Tuesday. May need to consult with care management. Will discuss further care with Dr. Pabon. <Akbar Pabon - Last Filed: 08/02/20 10:00> Internal Medicine - PN: Subj *Date: 08/02/20 *Time: 09:53 Exam Vital signs and Labs for Last 24 Hours: Temp Pulse Resp BP Pulse Ox 98.4 F 84 19 115/63 96 08/02/20 07:36 08/02/20 07:36 08/02/20 07:36 08/02/20 07:36 08/02/20 07:36 I & O for Last 24 hours: Intake & Output 07/30/20 07/31/20 08/01/20 08/02/20 11:59 11:59 11:59 11:59 Intake Tot
--- NOTE | 2020-08-02 17:55 | PC.NURSE ---
PT IS RESTING IN BED. ALERT AND ORIENTED X4. PT HAS BEEN LESS ANXIOUS THIS SHIFT. TOLERATED TAKING A SHOWER WITH VERY MINIMAL ASSISTANCE. PT HAS BEEN AMBULATING TO THE BATHROOM. 02 SATURATION HAS MAINTAINED 90-94% ON 3 L NC. LUNG SOUNDS DIMINISHED. ABDOMEN SOFT/NON TENDER WITH ACTIVE BOWEL SOUNDS. EATING AND DRINKING WELL. VSS. WILL CONTINUE TO MONITOR.
[2020-08-03] VITALS (13 sets, daily range): BP systolic 106–129; BP diastolic 54–71; PULSE 72–83; RESP 16–20; TEMP 36.7–36.9; O2SAT 90–100
--- NOTE | 2020-08-03 04:15 | PC.NURSE ---
NO acute changes overnight. Pt tolerated Bipap throughout the night. Lungs are diminished but clear. Sats in the high 90s on 2L NC. PT is independent with ambulation in room. Pt reports feeling better. Bowel sounds x4, abd soft and nontender. VSS, call light in reach, no concerns at this time.
--- NOTE | 2020-08-03 09:51 | P.PN_ITS ---
Internal Medicine - PN: Subj *Date: 08/03/20 *Time: 09:51 Interval history: She rested well last night and tolerated the BiPAP. She seems less anxious this morning. She is still worried about being alone at home when she is discharged. Exam Vital signs and Labs for Last 24 Hours: Temp Pulse Resp BP Pulse Ox 98.1 F 80 18 106/54 L 98 08/03/20 08:00 08/03/20 08:00 08/03/20 08:00 08/03/20 08:00 08/03/20 08:00 I & O for Last 24 hours: Intake & Output 07/31/20 08/01/20 08/02/20 08/03/20 11:59 11:59 11:59 11:59 Intake Total 840 / 840 1154 / 1154 1200 / 1200 Balance 840 / 840 1154 / 1154 1200 / 1200 Weight 124 lb 132 lb 4.438 oz 126 lb Microbiology Reports for the Last 24 Hours: Microbiology 07/31/20 11:00 Sputum - Expectorated Sputum Gram Stain - Final 07/31/20 11:00 Sputum - Expectorated Sputum Sputum Culture - Final Normal Respiratory Charu Narrative: She is alert sitting, up in bed with nasal oxygen in place. O2 sats are running in the mid to upper 90s. Breath sounds are markedly diminished. No rales or wheezes. Heart is regular. Extremities no edema. Assessment and Plan (1) Acute exacerbation of chronic obstructive pulmonary disease (COPD) Status: Acute Category: Medical Code(s): J44.1 - Chronic obstructive pulmonary disease with (acute) exacerbation (2) Hypercapnic respiratory failure Status: Acute Category: Medical Code(s): J96.92 - Respiratory failure, unspecified with hypercapnia (3) Anxiety disorder due to medical condition Status: Chronic Category: Medical Code(s): F06.4 - Anxiety disorder due to known physiological condition (4) GERD without esophagitis Status: Chronic Category: Medical Code(s): K21.9 - Gastro-esophageal reflux disease without esophagitis (5) Iron deficiency anemia Status: Chronic Category: Medical Code(s): D50.9 - Iron deficiency anemia, unspecified (6) Coronary artery disease Status: Chronic Category: Medical Code(s): I25.10 - Atherosclerotic heart disease of [place] coronary artery without angina pectoris (7) History of coronary artery stent placement Status: Chronic Category: Surgical Code(s): Z95.5 - Presence of coronary angioplasty implant and graft (8) Hyperlipidemia Status: Chronic Category: Medical Code(s): E78.5 - Hyperlipidemia, unspecified (9) Hypertension Status: Chronic Category: Medical Code(s): I10 - Essential (primary) hypertension - Assessment and plan all Dx Assessment and Plan for all problems:: Continue per orders. We will try to coordinate testing for BiPAP tomorrow.
--- NOTE | 2020-08-03 16:06 | PC.NURSE ---
PT IS RESTING IN BED. NO COMPLAINTS OF DISCOMFORT. AT REST PT IS ABLE TO MAINTAIN A SATURATION 91-94% ON ROOM AIR HOWEVER WHEN PT GETS UP TO AMBULATE TO THE BATHROOM HER SATURATION DROPS TO THE LOW 80'S. PT IS ON 2 L NC AT THIS TIME WITH A SATURATION 96-98%. LUNG SOUNDS DIMINISHED. ABDOMEN SOFT/NON TENDER WITH ACTIVE BOWEL SOUNDS. EATING AND DRINKING WELL. PT NAPS OFF AND ON T/O THE SHIFT. VSS. WILL CONTINUE TO MONITOR.
[2020-08-04] VITALS (10 sets, daily range): BP systolic 110–163; BP diastolic 66–75; PULSE 67–103; RESP 14–20; TEMP 36.7–37.3; O2SAT 95–100; BMI 25.2
--- NOTE | 2020-08-04 03:53 | PC.NURSE ---
No acute changes this shift. Pt was very cooperative and slept well this shift. Lungs sound diminished, pt is receiving O2 via NC at 2 L. At bedtime she wears bipap and pt tolerated very well. Admin meds per apr. Patient is able to make needs known to staff. No concerns at this time.
--- NOTE | 2020-08-04 09:00 | HMH.ACPN2 ---
<Zarina Reyes - Last Filed: 08/04/20 09:00> Internal Medicine - PN: Subj *Date: 08/04/20 *Time: 09:00 Interval history: Patient feels she is doing well. She wears BiPAP at night. She will be scheduled for sleep study for tonight. She is breathing fine as long as she wears oxygen. She denies chest pain. She is eating as usual. Bowels are moving and she is voiding QS. She has been up in a chair. Exam Vital signs and Labs for Last 24 Hours: Temp Pulse Resp BP Pulse Ox 99.1 F 103 H 20 124/75 97 08/04/20 08:00 08/04/20 08:00 08/04/20 08:00 08/04/20 08:00 08/04/20 08:00 I & O for Last 24 hours: Intake & Output 08/01/20 08/02/20 08/03/20 08/04/20 11:59 11:59 11:59 11:59 Intake Total 840 / 840 1154 / 1154 1200 / 1200 1680 / 1680 Balance 840 / 840 1154 / 1154 1200 / 1200 1680 / 1680 Weight 132 lb 4.438 oz 126 lb 125 lb 7 oz Microbiology Reports for the Last 24 Hours: Microbiology 07/31/20 11:00 Sputum - Expectorated Sputum Gram Stain - Final 07/31/20 11:00 Sputum - Expectorated Sputum Sputum Culture - Final Normal Respiratory Charu - Constitutional no acute distress - *Routine Respiratory Exam Present: CTA bilaterally, diminished air movement - *Routine Cardiovascular Exam Present: RRR - *Routine Abdominal Exam Present: soft, normoactive bowel sounds. Absent: tenderness - *Routine Extremities Exam Absent: edema, calf tenderness - *Routine Neurological Exam Present: alert, oriented X3 Assessment and Plan (1) Acute exacerbation of chronic obstructive pulmonary disease (COPD) Status: Acute Category: Medical Code(s): J44.1 - Chronic obstructive pulmonary disease with (acute) exacerbation (2) Hypercapnic respiratory failure Status: Acute Category: Medical Code(s): J96.92 - Respiratory failure, unspecified with hypercapnia (3) Anxiety disorder due to medical condition Status: Chronic Category: Medical Code(s): F06.4 - Anxiety disorder due to known physiological condition (4) GERD without esophagitis Status: Chronic Category: Medical Code(s): K21.9 - Gastro-esophageal reflux disease without esophagitis (5) Iron deficiency anemia Status: Chronic Category: Medical Code(s): D50.9 - Iron deficiency anemia, unspecified (6) Coronary artery disease Status: Chronic Category: Medical Code(s): I25.10 - Atherosclerotic heart disease of [place] coronary artery without angina pectoris (7) History of coronary artery stent placement Status: Chronic Category: Surgical Code(s): Z95.5 - Presence of coronary angioplasty implant and graft (8) Hyperlipidemia Status: Chronic Category: Medical Code(s): E78.5 - Hyperlipidemia, unspecified (9) Hypertension Status: Chronic Category: Medical Code(s): I10 - Essential (primary) hypertension - Assessment and plan all Dx Assessment and Plan for all problems:: Sleep study to be performed tonight to qualify her for BiPAP at discharge. <Akbar Pabon - Last Filed: 08/04/20 17:59> Internal Medicine - PN: Subj *Date: 08/04/20 *Time: 17:54 Exam Vital signs and Labs for Last 24 Hours: Temp Pulse Resp BP Pulse Ox 98.6 F 86 20 120/70 95 08/04/20 15:48 08/04/20 17:36 08/04/20 15:48 08/04/20 15:48 08/04/20 17:36 I & O for Last 24 hours: Intake & Output 08/02/20 08/03/20 08/04/20 08/05/20 11:59 11:59 11:59 11:59 Intake Total 1154 / 1154 1200 / 1200 1680 / 1680 600 / 600 Balance 1154 / 1154 1200 / 1200 1680 / 1680 600 / 600 Weight 126 lb 125 lb 7 oz Assessment and Plan (1) Acute exacerbation of chronic obstructive pulmonary disease (COPD) Status: Acute Category: Medical Code(s): J44.1 - Chronic obstructive pulmonary disease with (acute) exacerbation (2) Hypercapnic respiratory failure Problem details: Hypercapnia due to respiratory failure due to COPD Status: Acute Category: Medical Code(s):
--- NOTE | 2020-08-04 10:13 | P.PN_ITS ---
Internal Medicine - PN: Subj *Date: 08/04/20 *Time: 10:13 Exam Vital signs and Labs for Last 24 Hours: Temp Pulse Resp BP Pulse Ox 99.1 F 103 H 20 124/75 97 08/04/20 08:00 08/04/20 08:00 08/04/20 08:00 08/04/20 08:00 08/04/20 08:00 I & O for Last 24 hours: Intake & Output 08/01/20 08/02/20 08/03/20 08/04/20 23:59 23:59 23:59 23:59 Intake Total 600 / 600 1634 / 1634 1080 / 1200 1080 / 1080 Balance 600 / 600 1634 / 1634 1080 / 1200 1080 / 1080 Weight 60 kg 57.153 kg 56.897 kg Microbiology Reports for the Last 24 Hours: Microbiology 07/31/20 11:00 Sputum - Expectorated Sputum Gram Stain - Final 07/31/20 11:00 Sputum - Expectorated Sputum Sputum Culture - Final Normal Respiratory Charu Assessment and Plan (1) Acute exacerbation of chronic obstructive pulmonary disease (COPD) Status: Acute Category: Medical Code(s): J44.1 - Chronic obstructive pulmonary disease with (acute) exacerbation (2) Hypercapnic respiratory failure Status: Acute Category: Medical Code(s): J96.92 - Respiratory failure, unspecified with hypercapnia (3) Anxiety disorder due to medical condition Status: Chronic Category: Medical Code(s): F06.4 - Anxiety disorder due to known physiological condition (4) GERD without esophagitis Status: Chronic Category: Medical Code(s): K21.9 - Gastro-esophageal reflux disease without esophagitis (5) Iron deficiency anemia Status: Chronic Category: Medical Code(s): D50.9 - Iron deficiency anemia, unspecified (6) Coronary artery disease Status: Chronic Category: Medical Code(s): I25.10 - Atherosclerotic heart disease of [place] coronary artery without angina pectoris (7) History of coronary artery stent placement Status: Chronic Category: Surgical Code(s): Z95.5 - Presence of coronary angioplasty implant and graft (8) Hyperlipidemia Status: Chronic Category: Medical Code(s): E78.5 - Hyperlipidemia, unspecified (9) Hypertension Status: Chronic Category: Medical Code(s): I10 - Essential (primary) hypertension The patient's infection will respond to the chosen ABx?: Yes Is the patient receiving the right drug, dose, and route?: Yes Could a more targeted ABx be ordered?: No ( WANTS TOTAL OF 5 DAYS OF TX WITH DOXYCYCLINE BID.)
--- NOTE | 2020-08-04 12:09 | HMH.PULMPN ---
Internal Medicine - PN: Subj *Date: 08/04/20 *Time: 12:09 Interval history: No acute respiratory events over the weekend. Exam - Constitutional Constitutional:: Present: no acute distress, comfortable - HENMT Exam HENMT: Present: normocephalic, atraumatic - Eye Exam Eyes:: Present: normal appearance both eyes and related structures - Neck Exam Neck:: Present: normal visual inspection - Respiratory Exam Respiratory:: Present: able to speak in complete sentences, no respiratory distress, normal respiratory effort Comments: Bilateral clear but distant breath sounds - Cardiovascular Exam Cardiac:: Present: S1, S2 - GI Exam GI:: Present: soft - Skin Exam Skin: Present: warm, no rash - Neurological Exam Neurological: Present: alert, awake, normal cognition - Extremities Exam Extremities: Present: no cyanosis, no clubbing, no edema Assessment and Plan (1) Acute exacerbation of chronic obstructive pulmonary disease (COPD) Status: Acute Category: Medical Code(s): J44.1 - Chronic obstructive pulmonary disease with (acute) exacerbation (2) Hypercapnic respiratory failure Status: Acute Category: Medical Code(s): J96.92 - Respiratory failure, unspecified with hypercapnia (3) Anxiety disorder due to medical condition Status: Chronic Category: Medical Code(s): F06.4 - Anxiety disorder due to known physiological condition (4) GERD without esophagitis Status: Chronic Category: Medical Code(s): K21.9 - Gastro-esophageal reflux disease without esophagitis (5) Iron deficiency anemia Status: Chronic Category: Medical Code(s): D50.9 - Iron deficiency anemia, unspecified (6) Coronary artery disease Status: Chronic Category: Medical Code(s): I25.10 - Atherosclerotic heart disease of [place] coronary artery without angina pectoris (7) History of coronary artery stent placement Status: Chronic Category: Surgical Code(s): Z95.5 - Presence of coronary angioplasty implant and graft (8) Hyperlipidemia Status: Chronic Category: Medical Code(s): E78.5 - Hyperlipidemia, unspecified (9) Hypertension Status: Chronic Category: Medical Code(s): I10 - Essential (primary) hypertension - Assessment and plan all Dx Assessment and Plan for all problems:: # Acute on chronic hypoxic hypercarbic respiratory failure: #COPD exacerbation: 60-year-old significant smoking history last smoked 6 years ago carries a diagnosis of apparent triple inhaler therapy present with worsening respiratory failure with cough and productive phlegm concerning for COPD exacerbation. Chest x-ray on this admission did not show any acute pulmonary infiltrates. ABG on admission showed pH of 7.38 with a PCO2 of 76.3 and a PO2 of 69.3. Serum Bicarb a 49. No prior PFTs available to review within the last 4 years, two to 6-minute walk testing performed in 2019 showed significant decrease exercise tolerance. Patient was also initiated on BiPAP therapy since admission for her chronic hypercarbic respiratory and she has been tolerating BiPAP well. She previously was scheduled for an outpatient nocturnal pulse oximetry testing however given patient still in the hospital, nydia perform testing today however this should not hold her from being discharged from pulmonary stand point. Plan: -Continue Doxycycline for total of 5 days, -Prednisone 40 mg daily for total of 5 days -Continue long-term BiPAP therapy at 12/6 with a rate of 16. for hypercarbic resp failure -Outpatient sleep study evaluation -Continue Duo nebs Q6 hrs and Budesonide Q12 hrs scheduled, can be discharged on Symbicort and Spiriva along with DuoNebs every 6 hours as needed -We will follow the patient in 2 months with repeat blood gas on an outpatient basis #Multiple pulmonary nodules: # Greater than 30 pack years: Greater than [id number] smoking history. Qualifies for annual lung cancer screening. Most recent low-dose CT was from October 2018 that
--- NOTE | 2020-08-04 13:28 | DIET.NUTRFU ---
PO intakes 75%, weight stable. Daily energy supplement of pt's preference on diet order. She has been encouraged to request additional snacks/supplements as desired. Pt has been provided with diet education for COPD. Continuing to monitor.
--- NOTE | 2020-08-04 18:28 | PC.NURSE ---
PT IS SITTING UP IN THE BED. TOLERATED SITTING UP IN THE CHAIR FOR SEVERAL HOURS THIS SHIFT. ALERT AND ORIENTED X4. O2 SATURATION HAS MAINTAINED 92-97% ON 2 L NC. LUNG SOUNDS DIMINISHED. ABDOMEN SOFT/NON TENDER WITH ACTIVE BOWEL SOUNDS. THIS EVENING PT WILL NEED TO SLEEP WITH 2 L NC AND CONTINUOUS PULSE OX THAT IS LOCKED IN MED DRAWER. GILL MATHIS FROM RESPIRATORY STATED PT WILL NEED TO LEAVE CONTINUOUS PULSE OX ON TILL SHE ARRIVES TO PICK IT UP IN THE MORNING. VSS. WILL CONTINUE TO MONITOR.
--- NOTE | 2020-08-05 04:27 | PC.NURSE ---
Patient was A&Ox4 upon assessment. Her lung sounds where diminished throughout. Bowel sounds where active in all quadrants. She had no complaints during the shift. She was placed on a continuous pulse ox per RT Nikko. Patient has been stable throughout the night. Call light is within reach.
[2020-08-05 04:46] VITALS: BP 125/69; PULSE 71; RESP 16; TEMP 36.7; O2SAT 98
[2020-08-05 04:49] VITALS: BMI 25.2
[2020-08-05 05:45] VITALS: PULSE 75; PULSE 84; O2SAT 96
[2020-08-05 08:00] VITALS: BP 107/65; PULSE 79; RESP 18; TEMP 36.7; O2SAT 98
--- NOTE | 2020-08-05 09:12 | HMH.ACPN2 ---
<Zarina Reyes - Last Filed: 08/05/20 09:12> Internal Medicine - PN: Subj *Date: 08/05/20 *Time: 09:12 Interval history: Patient feels ready to go home. She had sleep study during the night with nasal oxygen. She feels she did well. She has been out of bed without difficulty. She is eating satisfactory. She is breathing without difficulty with her nasal oxygen. She does have a productive cough at times. Exam Vital signs and Labs for Last 24 Hours: Temp Pulse Resp BP Pulse Ox 98.1 F 79 18 107/65 L 98 08/05/20 08:00 08/05/20 08:00 08/05/20 08:00 08/05/20 08:00 08/05/20 08:00 I & O for Last 24 hours: Intake & Output 08/02/20 08/03/20 08/04/20 08/05/20 11:59 11:59 11:59 11:59 Intake Total 1154 / 1154 1200 / 1200 1680 / 1680 1500 / 1500 Output Total 600 / 600 Balance 1154 / 1154 1200 / 1200 1680 / 1680 900 / 900 Weight 126 lb 125 lb 7 oz 125 lb 4 oz - Constitutional no acute distress - *Routine Respiratory Exam Present: CTA bilaterally (Anteriorly and posteriorly with diminished air movement in bases.) - *Routine Cardiovascular Exam Present: RRR - *Routine Abdominal Exam Present: soft, normoactive bowel sounds. Absent: tenderness - *Routine Extremities Exam Absent: edema, calf tenderness - *Routine Neurological Exam Present: alert, oriented X3 Assessment and Plan (1) Acute exacerbation of chronic obstructive pulmonary disease (COPD) Status: Acute Category: Medical Code(s): J44.1 - Chronic obstructive pulmonary disease with (acute) exacerbation (2) Hypercapnic respiratory failure Problem details: Hypercapnia due to respiratory failure due to COPD Status: Acute Category: Medical Code(s): J96.92 - Respiratory failure, unspecified with hypercapnia (3) Anxiety disorder due to medical condition Status: Chronic Category: Medical Code(s): F06.4 - Anxiety disorder due to known physiological condition (4) GERD without esophagitis Status: Chronic Category: Medical Code(s): K21.9 - Gastro-esophageal reflux disease without esophagitis (5) Iron deficiency anemia Status: Chronic Category: Medical Code(s): D50.9 - Iron deficiency anemia, unspecified (6) Coronary artery disease Status: Chronic Category: Medical Code(s): I25.10 - Atherosclerotic heart disease of [place] coronary artery without angina pectoris (7) History of coronary artery stent placement Status: Chronic Category: Surgical Code(s): Z95.5 - Presence of coronary angioplasty implant and graft (8) Hyperlipidemia Status: Chronic Category: Medical Code(s): E78.5 - Hyperlipidemia, unspecified (9) Hypertension Status: Chronic Category: Medical Code(s): I10 - Essential (primary) hypertension - Assessment and plan all Dx Assessment and Plan for all problems:: Await results of sleep study. Hopefully able to discharge later today. <Akbar Pabon - Last Filed: 08/05/20 21:24> Internal Medicine - PN: Subj *Date: 08/05/20 *Time: 21:23 Exam Vital signs and Labs for Last 24 Hours: Temp Pulse Resp BP Pulse Ox 97.2 F L 64 16 127/63 93 L 08/05/20 16:00 08/05/20 16:00 08/05/20 16:00 08/05/20 16:00 08/05/20 16:00 I & O for Last 24 hours: Intake & Output 08/03/20 08/04/20 08/05/20 08/06/20 11:59 11:59 11:59 11:59 Intake Total 1200 / 1200 1680 / 1680 1500 / 1500 600 / 600 Output Total 600 / 600 400 / 400 Balance 1200 / 1200 1680 / 1680 900 / 900 200 / 200 Weight 125 lb 7 oz 125 lb 4 oz Assessment and Plan (1) Acute exacerbation of chronic obstructive pulmonary disease (COPD) Status: Acute Category: Medical Code(s): J44.1 - Chronic obstructive pulmonary disease with (acute) exacerbation (2) Hypercapnic respiratory failure Problem details: Hypercapnia due to respiratory failure due to COPD Status: Acute Category: Medical Code(s): J96.92 - Respiratory failure, unspecified with hypercapnia (3) Anxiety
[2020-08-05 12:50] VITALS: PULSE 66; PULSE 75; O2SAT 96
[2020-08-05 16:00] VITALS: BP 127/63; PULSE 64; RESP 16; TEMP 36.2; O2SAT 93
--- NOTE | 2020-08-07 16:36 | HMH.DCSUM ---
General - General Admission date:: 07/31/20 <Akbar Pabon - 08/29/20 08:19> 07/31/20 <JhoanVelma - 08/07/20 16:41> Discharge date: 08/05/20 <JhoanVelma - 08/07/20 16:41> HPI HPI: Ms. Adame is a 60-year-old female with a history of oxygen dependent COPD, history of NSTEMI, hyperlipidemia, and osteoporosis who has been feeling poorly for quite a while. She states she is normally on 2-1/2 L of oxygen at all times at home. Up until this morning, her oxygen was in the upper 90s on 2-1/2 L. She states she began having more shortness of breath along with a cough. She has had some rhinorrhea. She states the shortness of breath worsened at the first part of the week and she thinks she was hallucinating and had difficulty walking on Tuesday. She states in the middle of the night last night, she woke up and could not breathe. Her oxygen had fallen off and she could not find it. She checked her oxygen and it was 64% on room air. She then called 911 and was transported to the hospital. Her white blood cell count was elevated and her PCO2 was elevated at 88.4. Her chest x-ray showed COPD but nothing acute. It was felt she would need admission along with BiPAP for CO2 retention. <ChrisneoVelma - 08/07/20 16:41> Hospital Course Hospital Course: The patient was admitted. Pulmonology was consulted and she was started on Zithromax and DuoNebs along with BiPAP. She came off of her BiPAP machine, but on evening rounds, was noted to be very somnolent, therefore an ABG was ordered. Her CO2 was elevated and she was placed back on BiPAP. She did well on BiPAP throughout the night and was much more alert and oriented on the morning of 08/01/2020. She remained short of breath. Pulmonology saw the patient and felt she should have doxycycline for total of 5 days as well as prednisone 40 mg daily for a total of 5 days. He also recommended initiating long-term BiPAP therapy and obtaining an outpatient sleep study evaluation. He wanted her to continue her Symbicort and Spiriva along with duo nebs every 6 hours and planned to follow-up with her on an outpatient basis. He felt the patient was stable to be discharged home. A discharge order was placed, however when Dr. Pabon saw the patient on evening rounds, she was extremely confused and was felt to be retaining CO2 again. Her discharge was canceled. It was felt she could not return home without BiPAP. In order to obtain BiPAP, she would have to have a sleep study. The machine for the sleep study was not going to be available until the next week. It was felt she would need to remain in the hospital where BiPAP was readily available. She was very anxious about being discharged home alone. She did well wearing BiPAP at night and by 08/04/2020, she was scheduled for a sleep study. Her sputum returned showing normal respiratory alondra. She had an overnight pulse oximetry with oxygen to see if she qualified for BIPAP. She did qualify and this was ordered and she was stable to be discharged home. <Velma Staples - 08/08/20 10:55> Objective Vital signs: Temp Pulse Resp BP Pulse Ox 97.2 F L 64 16 127/63 93 L 08/05/20 16:00 08/05/20 16:00 08/05/20 16:00 08/05/20 16:00 08/05/20 16:00 <Akbar Pabon - 08/29/20 08:19> Temp Pulse Resp BP Pulse Ox 97.2 F L 64 16 127/63 93 L 08/05/20 16:00 08/05/20 16:00 08/05/20 16:00 08/05/20 16:00 08/05/20 16:00 <Velma Staples - 08/07/20 16:41> Narrative: - Constitutional no acute distress - *Routine Respiratory Exam Present: CTA bilaterally (Anteriorly and posteriorly with diminished air movement in bases.) - *Routine Cardiovascular Exam Present: RRR - *Routine Abdominal Exam Present: soft, normoactive bowel sounds. Absent: tenderness - *Routine Extremities Exam Absent: edema, calf tenderness - *Routine Neurological Exam Present: alert, oriented X3 <Velma Staples - 08/07/20 16:41
== END 2020-08-05 16:15 | disposition home or self-care (01) | DRG 189 ==
LOC: ER 10:45 → 2ND 14:54
PROVIDERS: Admitting Provider Family Medicine; Emergency Provider Emergency Medicine; PCP Family Medicine; Visit Provider Family Medicine
DX: J96.02 Acute respiratory failure with hypercapnia (principal); J44.1 Chronic obstructive pulmonary disease with (acute) exacerbation; J96.22 Acute and chronic respiratory failure with hypercapnia; I25.10 Atherosclerotic heart disease of native coronary artery without angina pectoris; I25.2 Old myocardial infarction; M19.90 Unspecified osteoarthritis, unspecified site; Z87.891 Personal history of nicotine dependence; F06.4 Anxiety disorder due to known physiological condition; Z95.5 Presence of coronary angioplasty implant and graft; E78.5 Hyperlipidemia, unspecified; K21.9 Gastro-esophageal reflux disease without esophagitis; D50.9 Iron deficiency anemia, unspecified; I10 Essential (primary) hypertension; Z99.81 Dependence on supplemental oxygen; R91.1 Solitary pulmonary nodule; M81.0 Age-related osteoporosis without current pathological fracture; Z88.0 Allergy status to penicillin
CPT/HCPCS: 36415; 71045; 80048; 80061; 82803; 82962; 83735; 84100; 85007; 85025; 87070; 87205; 87581; 87633; 87798; 93005; 93306; 94640; 94660; 94760; 94761; 94762; 96365; 96375; 99203; G0463; J0456; J2405

== ENCOUNTER 2020-08-09 19:31 | Emergency (ER) | payer MEDICARE, MEDICAID, SELFPAY ==
[2020-08-09 19:32] VITALS: BP 137/47; PULSE 64; RESP 20; TEMP 36.6; O2SAT 93; BMI 24.8
--- NOTE | 2020-08-09 19:46 | HMH.EDUPEXT ---
ED Disposition Clinical Impression: Hematoma Disposition: Home, Self-Care Condition on Discharge: Good Instructions: DI for Hematoma (Bruise) Referrals: Akbar Pabon MD [Primary Care Provider] - - Critical Care Critical Care Time: No Attestation: On 08/09/20, the high probability of a clinically significant, sudden or life threatening deterioration of the following system(s) required my full and direct attention, intervention and personal management. The time I documented below is in addition to time spent performing reported procedures but includes the following listed in this critical care notation. Medical Decision Making - Medical Records Medical records reviewed: Yes: I reviewed the patient's medical records. - Cesar Inquiry Pt receiving controlled substance: No Vital Signs: 08/09/20 19:32 Temperature 97.9 F Temperature Source Oral Pulse Rate [Left Radial] 64 Respiratory Rate 20 Blood Pressure [Right Arm] 137/47 L Blood Pressure Mean [Right Arm] 77 Blood Pressure Source [Right Arm] Automatic Cuff Blood Pressure Position [Right Arm] Sitting 02 Sat by Pulse Oximetry 93 L Oxygen Delivery Method Nasal Cannula Upper Extremity HPI - General Chief Complaint: Extremity Injury, Upper Stated Complaint: discharged on 08/06/19, bleeding inside hand Time Seen by Provider: 08/09/20 19:40 Mode of Arrival: Wheelchair Limitations: No Limitations Description of Symptoms (Recalled from ER Triage Doc. by RN): Pt was told by lala to be evaluated for hematoma to left hand from IV stick when pt was an inpatient 08/05. No active bleeding present. Pt denies pain. Left hand is bruised. Home 02 dependent. - History of Present Illness HPI narrative: This is a 60-year-old female presents with 2-day history of ecchymosis and swelling to the dorsum of the left hand. Patient recent been admitted for COPD exacerbation had IV site at this location. She reports tenderness to palpation but no significant pain at rest. She denies any injury or trauma to the area. She does report being on anticoagulants as well. Symptoms are mild but patient was advised by a family friend that is a nurse to come to the ED to be checked out. - Related Data Home Medications Medication Instructions Recorded Confirmed Albuterol Sulfate [Ventolin HFA 2 puff INHALATION Q4-6H PRN 11/07/17 07/31/20 Inhaler] Atorvastatin Calcium [Lipitor 80mg 80 mg PO HS 11/07/17 07/31/20 Tab] Budesonide/Formoterol Fumarate 2 puff INHALATION BID 11/07/17 07/31/20 [Symbicort 160-4.5 Mcg Inhaler] Clopidogrel Bisulfate [Plavix 75mg 75 mg PO DAILY 11/07/17 07/31/20 Tab] Metoprolol Succinate 200 mg PO DAILY 11/07/17 07/31/20 Pantoprazole Sodium [Protonix 40mg 40 mg PO DAILY 11/07/17 07/31/20 tablet] Spironolactone [Spironolactone 12.5 mg PO DAILY 11/07/17 07/31/20 25mg Tablet] Tiotropium Coats [Spiriva 1 puff INHALATION DAILY 11/07/17 07/31/20 18mcg/puff inhaler] Aspirin [Lo-Dose Aspirin EC] 81 mg PO DAILY 11/08/17 07/31/20 Cholecalciferol (Vitamin D3) 50,000 unit PO DAILY 07/16/18 07/31/20 [Vitamin D3 50,000 unit Cap] Ubidecarenone [Coq-10] 200 mg PO DAILY 07/16/18 07/31/20 Vitamin B Complex [B Complex] 1 each PO DAILY 07/16/18 07/31/20 Losartan Potassium 100 mg PO DAILY 07/17/18 07/31/20 Previous Rx's Medication Instructions Recorded Buspirone HCl [Buspar 5mg tablet] 5 mg PO BID #60 tab 08/05/20 Allergies Allergy/AdvReac Type Severity Reaction Status Date / Time amoxicillin Allergy Intermediate I-HIVES Verified 07/16/18 22:35 [facility] History - Hepatitis A Screen Drug use history?: No High risk sexual behaviors?: No History of sexually transmitted infection?: No Currently employed?: No Childcare worker?: No Do you have indoor plumbing?: Yes Do you have electricity?: Yes Attestation statement:: This patient has been screened for Hepatitis A risk factors. I have reviewed th
[2020-08-09 20:00] VITALS: BP 137/77; PULSE 75; RESP 18; TEMP 36.8; O2SAT 98
== END 2020-08-09 20:04 | disposition home or self-care (01) ==
PROVIDERS: Emergency Provider Emergency Medicine; PCP Family Medicine
DX: L76.01 Intraoperative hemorrhage and hematoma of skin and subcutaneous tissue complicating a dermatologic procedure (principal); J44.9 Chronic obstructive pulmonary disease, unspecified; Z79.01 Long term (current) use of anticoagulants; I25.2 Old myocardial infarction; I25.10 Atherosclerotic heart disease of native coronary artery without angina pectoris; I10 Essential (primary) hypertension; E78.5 Hyperlipidemia, unspecified; Z99.81 Dependence on supplemental oxygen; Z79.899 Other long term (current) drug therapy
CPT/HCPCS: 99281

== ENCOUNTER 2020-09-02 10:43 | Observation (INO) | payer MEDICARE, SELFPAY ==
[2020-09-02] VITALS (17 sets, daily range): BP systolic 104–130; BP diastolic 62–72; PULSE 65–85; RESP 11–24; TEMP 36.4–36.9; O2SAT 91–98; BMI 23.8; BMI 24.5
--- NOTE | 2020-09-02 10:49 | HMH.EDGENADL ---
ED Disposition Clinical Impression: COPD exacerbation Respiratory failure with hypercapnia Qualifiers: Chronicity: acute on chronic Qualified Code(s): J96.22 - Acute and chronic respiratory failure with hypercapnia Disposition: Admitted as Observation Condition on Discharge: Fair Referrals: Provider,Referral, [Referring] - - Critical Care Critical Care Time: Yes Attestation: On , the high probability of a clinically significant, sudden or life threatening deterioration of the following system(s) required my full and direct attention, intervention and personal management. The time I documented below is in addition to time spent performing reported procedures but includes the following listed in this critical care notation. Total Critical Care Time: 30 Vital system(s) involved:: Respiratory Failure My critical care processes included: Assessment & monitoring of V/S, Initial and Re-exams, Data Review/Interpretation, Coordinating Care, Medication Orders and management, Documentation Medical Decision Making - Medical Records Medical records reviewed: Yes: I reviewed the patient's medical records. MR Comment: Reviewed discharge summary from admission 07/31/2020 through 08/07/2020, and discharge summary from admission 07/17/2020 through 07/19/2020. - Cesar Inquiry Pt receiving controlled substance: No Vital Signs: 09/02/20 10:43 09/02/20 10:54 09/02/20 11:00 Temperature 98.5 F Temperature Source Oral Pulse Rate 74 66 Pulse Rate [Right] 79 Respiratory Rate 20 17 14 Blood Pressure 108/62 L Blood Pressure [Right Arm] 127/72 Blood Pressure Mean 86 Blood Pressure Mean [Right Arm] 90 02 Sat by Pulse Oximetry 96 97 94 L Oxygen Delivery Method Nasal Cannula Oxygen Flow Rate (LPM) 2 2 2 09/02/20 11:15 09/02/20 11:21 09/02/20 11:30 Temperature Temperature Source Pulse Rate 77 73 68 Pulse Rate [Right] Respiratory Rate 17 11 L Blood Pressure 112/65 Blood Pressure [Right Arm] Blood Pressure Mean 83 Blood Pressure Mean [Right Arm] 02 Sat by Pulse Oximetry 98 96 Oxygen Delivery Method Oxygen Flow Rate (LPM) 2 - Lab Data Lab Results 09/02/20 10:20: WBC 10.8, RBC 4.10 L, Hgb 12.0 L, Hct 37.9, MCV 92.5, MCH 29.3, MCHC 31.7 L, RDW 12.8, Plt Count 286, MPV 8.2, Neut % (Auto) 81.8 H, Lymph % (Auto) 13.0, [place] % (Auto) 3.5, Eos % (Auto) 1.2, Baso % (Auto) 0.5, Neut # (Auto) 8.8 H, Lymph # (Auto) 1.4, [place] # (Auto) 0.4, Eos # (Auto) 0.1, Baso # (Auto) 0.1 09/02/20 10:20: Sodium 140, Potassium 4.1, Chloride 89 L, Carbon Dioxide 43 H*, Anion Gap 12.1, BUN 12, Creatinine 0.70, Estimated Creat Clear 49, Estimated GFR 85, Est GFR ( Amer) 103, Total Bilirubin 0.5, AST 29, ALT 17, Alkaline Phosphatase 84, Troponin I < 0.01, Total Protein 7.6, Albumin 4.2, Globulin 3.4 H, Albumin/Globulin Ratio 1.2 09/02/20 11:03: Specimen Source Right radial, O2 % 3l, ABG pH 7.31 L, ABG pCO2 88.7 H, ABG pO2 106.3 H, ABG HCO3 43.3 H, ABG Total CO2 46.0 H, ABG O2 Saturation 98, ABG Base Excess 16.9 H, Ashkan Test Acceptable Result diagrams: 09/02/20 10:20 09/02/20 10:20 Orders (Tests/Meds): ED MEDICATIONS Discontinued Medications Generic Name Dose Route Start Last Admin Trade Name Freq PRN Reason Stop Dose Admin Albuterol/Ipratropium 3 ml 09/02/20 11:02 09/02/20 11:20 Ipratropium/Albuterol 3 Ml Neb 09/02/20 11:03 3 ml ONCE ONE Administration Methylprednisolone Sodium Succinate 125 mg 09/02/20 11:02 09/02/20 11:10 Methylprednisolone Sod Succ 125mg Vial IV 09/02/20 11:03 125 mg ONCE ONE Administration ORDERS Category Date Time Status CMP [Comprehensive Metabolic Panel] Stat Lab 09/02/20 10:20 Results Lactic Acid Stat Lab 09/02/20 11:14 Received Troponin I Q3H Lab 09/02/20 14:15 Ordered Troponin I Q3H Lab 09/02/20 17:15 Ordered Troponin I Stat Lab 09/02/20 10:20 Results Blood Culture Stat Micro 09/02/20 11:14 Received - Radiology Data
--- NOTE | 2020-09-02 10:53 | ECG_ITS ---
APPROVED REPORT Exam: Resting ECG HR:68 bpm ECG Measurements Heart Rate 68 AXES MO 116 P 79 QRSd 68 QRS 77 QT 378 T 87 QTc 401 Conclusion Normal sinus rhythm Old septal changes Abnormal ECG Electronically signed by : Caden Delgadillo, 09/03/2020 21:38:49
--- NOTE | 2020-09-02 11:04 | XR_ITS ---
PROCEDURE: XR CHEST PORTABLE CLINICAL HISTORY: soa COMPARISON: CR CXR2V XR chest 2V from 11/07/2017 CR Chest from 07/16/[address] CHEST WO CON from 11/01/2018 CR XR CHEST PORTABLE from 07/31/2020 FINDINGS: The cardiomediastinal silhouette and pulmonary vascularity are within normal limits. No lobar consolidation or collapse. There is blunting of the CP angles on both sides which is felt to be chronic in nature. There is hyperinflation of the upper lobes consistent with COPD/emphysematous change. Vague opacity is present in the right midlung laterally overlying the 4th rib anteriorly nonspecific. Follow-up upright PA and lateral chest may confirm stability. There is scarring in the right lung apex. No acute bony abnormalities. IMPRESSION: No acute finding. COPD with emphysematous changes with faint nodular opacity in the right midlung nonspecific. Stability may be confirmed with follow-up Dictated by: Ashkan Gautam MD 09/02/2020 11:26 Ashkan Gautam MD in [place] 09/02/2020 11:26
--- NOTE | 2020-09-02 11:11 | PC.NURSE ---
Pt tolerates methylprednisolone IV at last visit, ok to give per Dr. Plascencia.
--- NOTE | 2020-09-02 11:11 | PC.NURSE ---
rad at BS for portable xray
[2020-09-02 11:14] LABS: Alanine Aminotransferase 17 U/L (12-78); Albumin Level 4.2 g/dl (3.5-5.0); Albumin/Globulin Ratio 1.2 (1.1-1.8); Alkaline Phosphatase 84 U/L (38-126); Aspartate Amino Transferase 29 U/L (14-36); Bilirubin,Total 0.5 mg/dl (0.2-1.3); Blood Urea Nitrogen 12 mg/dl (7-17); Chloride 89 mmol/L (98-107); Creatinine Clearance Estimated 49 mL/min (50-200); Estimated Glomerular Filt Rate 85 ml/min (>60); GFR (African American) 103 ML/MIN (>60); Globulin 3.4 g/dL (1.3-3.2); Potassium 4.1 mmoL/L (3.5-5.1); Sodium 140 mmol/L (136-145); Total Protein,Serum 7.6 g/dl (6.3-8.2)
--- NOTE | 2020-09-02 11:15 | PC.NURSE ---
RT at bedside for ABG & srinivasan cook.
[2020-09-02 11:20] LABS: ABG Base Excess 16.9 mmol/L (-2.4-2.3); ABG HCO3 43.3 mmhg (22.0-26.0); ABG Oxygen Saturation 98 % (90-100); ABG PH 7.31 mmol/L (7.35-7.45); ABG PO2 106.3 mmhg (80-100)
[2020-09-02 11:22] LABS: Allen's Test Acceptable; Oxygen 3L %; Source Right Radial
[2020-09-02 11:23] LABS: ABG PCO2 88.7 mmhg (35.0-45.0)
--- NOTE | 2020-09-02 11:23 | PC.NURSE ---
ABG results: pH 7.3, CO288, pO2 106. Dr. Plascencia notified.
[2020-09-02 11:27] LABS: Anion Gap 12.1 mEq/L (5-15); Troponin I < 0.01 ng/ml (0.00-0.034)
[2020-09-02 11:30] LABS: Carbon Dioxide 43 mmol/L (22.0-30.0)
[2020-09-02 11:33] LABS: Lactic Acid 0.7 mmol/L (0.7-2.1)
--- NOTE | 2020-09-02 11:34 | PC.NURSE ---
RT called for BIPAP placement.
[2020-09-02 11:35] LABS: Basophils # 0.1 K/mm3 (0-0.2); Basophils % 0.5 % (0.1-2.0); Eosinophils # 0.1 K/mm3 (0.0-0.4); Eosinophils % 1.2 % (0.1-12.0); Hematocrit 37.9 % (37.0-47.0); Lymphocytes # 1.4 K/mm3 (0.7-4.5); Mean Corpuscular HGB Conc 31.7 g/dL (31.8-35.4); Mean Corpuscular Hemoglobin 29.3 pg (27.0-31.2); Mean Corpuscular Volume 92.5 fl (81-99); Mean Platelet Volume 8.2 fl (7.4-10.4); Monocytes # 0.4 K/mm3 (0.1-1.0); Monocytes % 3.5 % (1.7-9.3); Neutrophils # 8.8 K/mm3 (1.8-7.8); Neutrophils % 81.8 % (37.0-80.0); Platelet Count 286 K/mm3 (142-424); Red Cell Distribution Width 12.8 % (11.5-17.5); White Blood Count 10.8 K/mm3 (4.8-10.8)
--- NOTE | 2020-09-02 11:38 | PC.NURSE ---
dr chatterjee speaking with dr bah. rt at bedside
[2020-09-02 11:46] LABS: Coronavirus 19, PCR Not Detected (NotDetected); Influenza A, PCR Not Detected (NotDetected); Influenza B, PCR Not Detected (NotDetected)
[2020-09-02 12:00] LABS: Calcium 9.8 mg/dl (8.4-10.2); Glucose 169 mg/dl (74-100)
--- NOTE | 2020-09-02 12:31 | HMH.PHAINT ---
MEDICATION RECONCILIATION COMPLETED ON PATIENT USING EXTERNAL FILL HISTORY FROM PHARMACY. -SY LOPES, SUNDEEPD
--- NOTE | 2020-09-02 12:34 | PC.NURSE ---
Report given to CRISTIAN Moseley.
--- NOTE | 2020-09-02 13:36 | HMH.HP ---
*Admission Date: 09/02/20 *Chief complaint: COPD Exacerbation *History of present illness: Ms. Adame is a 60yo WF with history of HTN, ASCVD with stent placement, GERD, JUNIE, HLP, anxiety disorder, and oxygen-dependent COPD with recent exacerbations requiring inpatient admission for management. Most recently, she was admitted from 07/31/20 - 08/05/20 for COPD exacerbation and hypercapnic respiratory failure. She required ventilation with BiPAP while hospitalized and subsequently qualified for home BiPAP. She reports that she has been using BiPAP overnight consistently and participating with PT for pulmonary rehab. She did not continue nebulizer treatments at home. She describes feeling that her respiratory stamina has not improved as quickly as she anticipated and within the past 7-10 days, she has begun to feel weak and fatigued. She feels better when using BiPAP, however, weakness returns as soon as she removes it in the morning. Her oxygen saturations remain 96-97% and drop into the high 80's only when she ambulates from bedroom to kitchen each morning and recover quickly with rest. She reports feeling of weakness and fatigue was increased this morning without significant shortness of breath and she became concerned for CO2 retention and presented to [facility] ED for evaluation. Upon arrival, oxygen saturations were stable on 2L via nasal cannula. WBC was 10.8 with H&H 12.0 and 37.9. CXR showed no acute findings with COPD with emphysematous changes with faint nodular opacity in the right midlung nonspecific. ABG's showed pH 7.31, pCO2 88.7, pO2 106.3, HCO3 43.3, Total CO2 46.0, O2 Sat 98, base excess 16.9. Her case was discussed with Dr. Fall for Dr. Pabon and she was admitted for further evaluation and treatment. At the time of this writing she is comfortable and without complaint. She denies any pain or SOB. Her O2 sats are 91% on 2L via nasal cannula. [facility] History I have reviewed the patient's past medical history: Yes Medical History: Reports:: Anxiety, Atherosclerotic Heart Disease, Chronic Obstructive Pulmonary Disease (COPD), Coronary Artery Disease, Gastroesophageal Reflux Disease(GERD), Home Oxygen, Hyperlipidemia, Hypertension, Myocardial Infarction, Ulcer Denies:: Cancer, Diabetes Mellitus Type 1, Diabetes Mellitus Type 2, MRSA *Have you ever received a pneumonia vaccine?: Yes *Have you received a flu vaccine this season?: Yes Other Medical History: Reports: Arthritis Other Surgeries: Yes: Cardiac Catheterization, Cholecystectomy, Colonoscopy, Coronary Stent Amputation: No Fractures: No - *Social History Smoking Status: Former smoker Tobacco Type: cigarettes # Packs/Day (cigarettes): 2 #Yrs smoked (if former smoker): 35 Alcohol Intake: never *Occupational Status:: disabled Housing: house Household Members: none *Travel in the last 8 weeks: None Family Hx:: Cancer, Diabetes, Heart Attack, Hypertension, Mental illness Review of Systems - Constitutional Reports fatigue, Reports headache(s), Reports lack of energy, Reports night sweats, Reports weakness, Reports weight loss, Denies body ache(s), Denies chills, Denies fever(s), Denies increased appetite - Eyes Denies change in vision - ENT Reports nasal congestion, Reports nasal discharge, Denies dizziness, Denies ear pain, Denies headache(s), Denies sinus pain, Denies sinus pressure, Denies sore throat - *Cardiovascular Denies chest pain, Denies lightheadedness, Denies rapid, pounding, or irregular heartbeat, Denies foot swelling - *Respiratory Reports shortness of breath, Reports shortness of breath with activity, Denies change in phlegm color, Denies chest congestion, Denies cough - *Gastrointestinal Reports nausea, Denies abdominal pain, Denies change in bowel habits, Denies constipation, Denies loose stools - *Genitourinary Denies difficulty urinating - *Musculoskeletal Denies muscle weakness, Denies body aches - *Neurologic Reports weakness, Denies confusion, Denies unstea
--- NOTE | 2020-09-02 15:33 | HMH.PHAVTE ---
[facility] Pharmacy VTE Monitoring - Patient Demographics Admission date: 09/02/20 Report Date: 09/02/20 Time: 15:33 Allergies/Adverse Reactions: Patient Allergies amoxicillin Allergy (Intermediate, Verified 09/02/20 10:50) I-HIVES prednisone Adverse Reaction (Verified 09/02/20 10:50) Anxiety Height: 1.5 m Weight: 55.111 kg Patient Problems: Current Active Problems Acute exacerbation of chronic obstructive pulmonary disease (COPD) (Acute) Hypercapnic respiratory failure (Acute) - VTE Risk Labs: VTE Related Lab Results Hgb 12.0 g/dL (12.2-16.2) L 09/02/20 10:20 Hct 37.9 % (37.0-47.0) 09/02/20 10:20 Plt Count 286 K/mm3 (142-424) 09/02/20 10:20 BUN 12 mg/dl (7-17) 09/02/20 10:20 Creatinine 0.70 mg/dl (0.52-1.04) 09/02/20 10:20 Estimated Creat Clear 49 mL/min (50-200) 09/02/20 10:20 - Prophylaxis VTE Prophylaxis Ordered?: Yes Types of VTE Prophylaxis: TEDS Knee High Location of Applied Device: Bilateral Lower Extremeties
[2020-09-02 18:09] LABS: ABG Base Excess 10.5 mmol/L (-2.4-2.3); ABG HCO3 36.2 mmhg (22.0-26.0); ABG Oxygen Saturation 95 % (90-100); ABG PH 7.34 mmol/L (7.35-7.45); ABG PO2 74.5 mmhg (80-100); ABG TCO2 38.3 mmhg (23-27)
[2020-09-02 18:10] LABS: Allen's Test Acceptable; Oxygen 2.5LPM %
[2020-09-02 18:11] LABS: Source Right Radial
[2020-09-02 18:12] LABS: ABG PCO2 68.7 mmhg (35.0-45.0)
--- NOTE | 2020-09-02 18:18 | PC.NURSE ---
Spoke w/ MD Fall regarding ABG results- no new orders
[2020-09-03] VITALS (10 sets, daily range): BP systolic 97–123; BP diastolic 59–73; PULSE 67–91; RESP 18–19; TEMP 36.4–36.9; O2SAT 93–98; BMI 24.2
--- NOTE | 2020-09-03 03:38 | PC.NURSE ---
Patient is alert and oriented x4. She has been pleasant this shift. Patient does have some wheezing throughout. She has been wearing her BiPAP this shift. She is independent. Vital signs are stable. Will continue to monitor. Call light within reach.
--- NOTE | 2020-09-03 08:24 | HMH.ACPN2 ---
Internal Medicine - PN: Subj *Date: 09/03/20 *Time: 08:24 Interval history: Patient states she is feeling better today. Her oxygen still drops with any movement and she gets very short of breath. Her room air sats are in the mid 90s. She states she slept well last night and she denies any pain. Exam Vital signs and Labs for Last 24 Hours: Temp Pulse Resp BP Pulse Ox 97.6 F 91 H 18 111/73 94 L 09/03/20 03:52 09/03/20 06:30 09/03/20 03:52 09/03/20 03:52 09/03/20 06:30 Laboratory Results - last 24 hr 09/02/20 10:20: WBC 10.8, RBC 4.10 L, Hgb 12.0 L, Hct 37.9, MCV 92.5, MCH 29.3, MCHC 31.7 L, RDW 12.8, Plt Count 286, MPV 8.2, Neut % (Auto) 81.8 H, Lymph % (Auto) 13.0, Moore % (Auto) 3.5, Eos % (Auto) 1.2, Baso % (Auto) 0.5, Neut # (Auto) 8.8 H, Lymph # (Auto) 1.4, Moore # (Auto) 0.4, Eos # (Auto) 0.1, Baso # (Auto) 0.1 09/02/20 10:20: Sodium 140, Potassium 4.1, Chloride 89 L, Carbon Dioxide 43 H*, Anion Gap 12.1, BUN 12, Creatinine 0.70, Estimated Creat Clear 49, Estimated GFR 85, Est GFR ( Amer) 103, Glucose 169 H, Calcium 9.8, Total Bilirubin 0.5, AST 29, ALT 17, Alkaline Phosphatase 84, Troponin I < 0.01, Total Protein 7.6, Albumin 4.2, Globulin 3.4 H, Albumin/Globulin Ratio 1.2 09/02/20 11:03: Specimen Source Right radial, O2 % 3l, ABG pH 7.31 L, ABG pCO2 88.7 H, ABG pO2 106.3 H, ABG HCO3 43.3 H, ABG Total CO2 46.0 H, ABG O2 Saturation 98, ABG Base Excess 16.9 H, Ashkan Test Acceptable 09/02/20 11:14: Lactate 0.7 09/02/20 11:42: SARS-CoV-2 (PCR) Not detected, Influenza A Untype (PCR) Not detected, Influenza Type B (PCR) Not detected 09/02/20 18:00: Specimen Source Right radial, O2 % 2.5lpm, ABG pH 7.34 L, ABG pCO2 68.7 H, ABG pO2 74.5 L, ABG HCO3 36.2 H, ABG Total CO2 38.3 H, ABG O2 Saturation 95, ABG Base Excess 10.5 H, Ashkan Test Acceptable I & O for Last 24 hours: Intake & Output 08/31/20 09/01/20 09/02/20 09/03/20 11:59 11:59 11:59 11:59 Intake Total 600 / 600 Output Total 0 / 0 Balance 600 / 600 Weight 118 lb 120 lb 5 oz - Constitutional no acute distress - *Routine Respiratory Exam Present: decreased breath sounds, CTA bilaterally - *Routine Cardiovascular Exam Present: RRR - *Routine Abdominal Exam Present: soft, normoactive bowel sounds. Absent: tenderness - *Routine Extremities Exam Absent: cyanosis, clubbing, edema - *Routine Skin Exam Present: warm. Absent: rash - *Routine Neurological Exam Present: alert, oriented X3 Assessment and Plan (1) Acute exacerbation of chronic obstructive pulmonary disease (COPD) Status: Acute Category: Medical Code(s): J44.1 - Chronic obstructive pulmonary disease with (acute) exacerbation (2) Hypercapnic respiratory failure Problem details: Hypercapnia due to respiratory failure due to COPD Status: Acute Qualifiers: Chronicity: acute on chronic Qualified Code(s): J96.22 - Acute and chronic respiratory failure with hypercapnia Category: Medical Code(s): J96.92 - Respiratory failure, unspecified with hypercapnia (3) Coronary artery disease Status: Chronic Category: Medical Code(s): I25.10 - Atherosclerotic heart disease of [place] coronary artery without angina pectoris (4) History of coronary artery stent placement Status: Chronic Category: Surgical Code(s): Z95.5 - Presence of coronary angioplasty implant and graft (5) Hyperlipidemia Status: Chronic Category: Medical Code(s): E78.5 - Hyperlipidemia, unspecified (6) Hypertension Status: Chronic Category: Medical Code(s): I10 - Essential (primary) hypertension (7) Iron deficiency anemia Status: Chronic Category: Medical Code(s): D50.9 - Iron deficiency anemia, unspecified - Assessment and plan all Dx Assessment and Plan for all problems:: Patient's CO2 did decrease on her second ABG. Will discuss further care with Dr. Fall.
--- NOTE | 2020-09-03 16:29 | PC.NURSE ---
Pt is A+Ox4 and pleasant t/o shift. Pt has tolerated 2 L nc while sitting in bed. Pt is able to ambulate independently to bathroom and chair but has c/o of SOB with any activity. Pt has expiratory wheezing t/o lungs and sounds are diminished. Call light within reach. Will continue to monitor.
[2020-09-04] VITALS: BP 110/68; PULSE 70; RESP 19; TEMP 36.6; O2SAT 97
[2020-09-04 01:51] VITALS: RESP 21; RESP 22
--- NOTE | 2020-09-04 03:48 | PC.NURSE ---
A&OX4. TOLERATING 2LNC WHILE AWAKE AND BIPAP WHILE ASLEEP. PT HAS HAD NO C/O PAIN/SOA THUS FAR. PT INDEPENDENT IN ROOM. VSS WILL CONTINUE TO MONITOR.
[2020-09-04 04:00] VITALS: BP 108/79; PULSE 67; PULSE 70; RESP 17; TEMP 36.6; O2SAT 98
[2020-09-04 05:00] VITALS: BMI 23.6
[2020-09-04 06:15] VITALS: PULSE 80; PULSE 81
[2020-09-04 08:00] VITALS: BP 109/56; PULSE 80; PULSE 85; RESP 17; TEMP 36.8; O2SAT 91
--- NOTE | 2020-09-04 08:42 | HMH.ACPN2 ---
<Beth Keller - Last Filed: 09/04/20 08:42> Internal Medicine - PN: Subj *Date: 09/04/20 *Time: 08:42 Interval history: She is sitting up in bed without complaint and reports feeling much better, although she still has SOBOE. She denies any pain. Her sats have been stable on O2 per nasal cannula. Exam Vital signs and Labs for Last 24 Hours: Temp Pulse Resp BP Pulse Ox 98.2 F 85 17 109/56 L 91 L 09/04/20 08:00 09/04/20 08:00 09/04/20 08:00 09/04/20 08:00 09/04/20 08:00 I & O for Last 24 hours: Intake & Output 09/01/20 09/02/20 09/03/20 09/04/20 11:59 11:59 11:59 11:59 Intake Total 1080 / 1080 1380 / 1380 Output Total 0 / 0 Balance 1080 / 1080 1380 / 1380 Weight 118 lb 120 lb 5 oz 117 lb 8 oz Microbiology Reports for the Last 24 Hours: Microbiology 09/02/20 11:14 Blood Blood Culture - Preliminary - Constitutional no acute distress - *Routine HEENT Exam Head: Present: normocephalic, atraumatic ENT: Present: mucous membranes moist - *Routine Respiratory Exam Absent: respiratory distress Comments: generally diminished with scattered rhonchi and wheezes - *Routine Cardiovascular Exam Present: RRR - *Routine Abdominal Exam Present: soft, normoactive bowel sounds. Absent: tenderness, distended, guarding, firm, rigid - *Routine Extremities Exam Present: full ROM, pulses intact. Absent: edema, tenderness - *Routine Neurological Exam Present: alert, oriented X3, moving all extremities, normal speech Assessment and Plan (1) Acute exacerbation of chronic obstructive pulmonary disease (COPD) Status: Acute Category: Medical Code(s): J44.1 - Chronic obstructive pulmonary disease with (acute) exacerbation (2) Hypercapnic respiratory failure Problem details: Hypercapnia due to respiratory failure due to COPD Status: Acute Qualifiers: Chronicity: acute on chronic Qualified Code(s): J96.22 - Acute and chronic respiratory failure with hypercapnia Category: Medical Code(s): J96.92 - Respiratory failure, unspecified with hypercapnia (3) Coronary artery disease Status: Chronic Category: Medical Code(s): I25.10 - Atherosclerotic heart disease of [place] coronary artery without angina pectoris (4) History of coronary artery stent placement Status: Chronic Category: Surgical Code(s): Z95.5 - Presence of coronary angioplasty implant and graft (5) Hyperlipidemia Status: Chronic Category: Medical Code(s): E78.5 - Hyperlipidemia, unspecified (6) Hypertension Status: Chronic Category: Medical Code(s): I10 - Essential (primary) hypertension (7) Iron deficiency anemia Status: Chronic Category: Medical Code(s): D50.9 - Iron deficiency anemia, unspecified - Assessment and plan all Dx Assessment and Plan for all problems:: Stable for discharge home today. <Akbar Pabon - Last Filed: 09/04/20 18:01> Internal Medicine - PN: Subj *Date: 09/04/20 *Time: 18:00 Exam Vital signs and Labs for Last 24 Hours: Temp Pulse Resp BP Pulse Ox 98.2 F 72 17 109/56 L 88 L 09/04/20 08:00 09/04/20 10:04 09/04/20 08:00 09/04/20 08:00 09/04/20 10:04 I & O for Last 24 hours: Intake & Output 09/02/20 09/03/20 09/04/20 09/05/20 11:59 11:59 11:59 11:59 Intake Total 1080 / 1080 1380 / 1380 Output Total 0 / 0 Balance 1080 / 1080 1380 / 1380 Weight 118 lb 120 lb 5 oz 117 lb 8 oz Microbiology Reports for the Last 24 Hours: Microbiology 09/02/20 11:14 Blood Blood Culture - Preliminary NO GROWTH AFTER 48 HOURS 09/02/20 11:14 Blood Blood Culture - Preliminary Assessment and Plan (1) Acute exacerbation of chronic obstructive pulmonary disease (COPD) Status: Acute Category: Medical Code(s): J44.1 - Chronic obstructive pulmonary disease with (acute) exacerbation (2) Hypercapnic respiratory failure Problem details: Hypercapnia due to r
--- NOTE | 2020-09-04 09:56 | PC.NURSE ---
Addendum entered by Leidy Espinosa RN 09/04/20 10:27: Clarified w/ Dr. Pabon, pt will continue duoneb treatments and Buspar will be DC'd, continue citalopram @ . Original Note: Spoke w/ Beth Keller pt asking if she is to continue duonebs @ home, she is also concerned as to why he put her back on Buspar instead of citalopram. Beth states she will contact Dr. Pabon for further orders.
--- NOTE | 2020-09-04 10:00 | SW/DCPLANNER ---
Addendum entered by Radha Nunez 09/04/20 11:29: Melba with [facility] stated that services will begin tomorrow for this patient. Original Note: Patient currently receives home health services from [facility]. Patient information has been faxed to [facility] to resume services. Patient will discharge home today.
[2020-09-04 10:04] VITALS: PULSE 72; PULSE 79; O2SAT 88
--- NOTE | 2020-09-04 11:19 | HMH.PHAINT ---
DISCHARGE COUNSELING COMPLETE. DISCUSSED STEROID PACK AND TO STOP THE BUSPAR AND SUCRALFATE. REVIEWED HOW TO TAKE THE DOSE PACK AND ANSWERED ALL QUESTIONS PATIENT HAD REGARDING ADMINISTRATION.
--- NOTE | 2020-09-04 12:22 | PC.NURSE ---
Checked back on pt, she states that her ride is on her way. No needs voiced @ this time. Pt currently sitting up in recliner eating lunch.
--- NOTE | 2020-09-07 22:17 | HMH.DCSUM ---
General - General Admission date:: 09/02/20 <Akbar Pabon - 10/01/20 18:59> 09/02/20 <Velma Staples - 09/07/20 22:22> Discharge date: 09/04/20 <Velma Staples - 09/07/20 22:22> HPI HPI: Ms. Adame is a 60yo WF with history of HTN, ASCVD with stent placement, GERD, JUNIE, HLP, anxiety disorder, and oxygen-dependent COPD with recent exacerbations requiring inpatient admission for management. Most recently, she was admitted from 07/31/20 - 08/05/20 for COPD exacerbation and hypercapnic respiratory failure. She required ventilation with BiPAP while hospitalized and subsequently qualified for home BiPAP. She reports that she has been using BiPAP overnight consistently and participating with PT for pulmonary rehab. She did not continue nebulizer treatments at home. She describes feeling that her respiratory stamina has not improved as quickly as she anticipated and within the past 7-10 days, she has begun to feel weak and fatigued. She feels better when using BiPAP, however, weakness returns as soon as she removes it in the morning. Her oxygen saturations remain 96-97% and drop into the high 80's only when she ambulates from bedroom to kitchen each morning and recover quickly with rest. She reports feeling of weakness and fatigue was increased this morning without significant shortness of breath and she became concerned for CO2 retention and presented to [facility] ED for evaluation. Upon arrival, oxygen saturations were stable on 2L via nasal cannula. WBC was 10.8 with H&H 12.0 and 37.9. CXR showed no acute findings with COPD with emphysematous changes with faint nodular opacity in the right midlung nonspecific. ABG's showed pH 7.31, pCO2 88.7, pO2 106.3, HCO3 43.3, Total CO2 46.0, O2 Sat 98, base excess 16.9. Her case was discussed with Dr. Fall for Dr. Pabon and she was admitted for further evaluation and treatment. At the time of this writing she is comfortable and without complaint. She denies any pain or SOB. Her O2 sats are 91% on 2L via nasal cannula. <Velma Staples - 09/07/20 22:22> Hospital Course Hospital Course: The patient felt much better after admission. She was no longer dyspneic when sitting in bed with her nasal oxygen in place. Her second ABG had markedly improved. Her initial chest x-ray showed nothing acute. Her oxygen sats did drop with movement and she got short of breath. She was encouraged to get up in a chair. By 09/04/2020 she felt much better. Her oxygen saturations were stable on oxygen per nasal cannula, which she had at home. She was stable to be discharged and will follow up with Dr. Pabon. <Velma Staples - 09/07/20 22:22> Objective Vital signs: Temp Pulse Resp BP Pulse Ox 98.2 F 72 17 109/56 L 88 L 09/04/20 08:00 09/04/20 10:04 09/04/20 08:00 09/04/20 08:00 09/04/20 10:04 <Akbar Pabon - 10/01/20 18:59> Temp Pulse Resp BP Pulse Ox 98.2 F 72 17 109/56 L 88 L 09/04/20 08:00 09/04/20 10:04 09/04/20 08:00 09/04/20 08:00 09/04/20 10:04 <Velma Staples - 09/07/20 22:22> Narrative: - Constitutional no acute distress - *Routine HEENT Exam Head: Present: normocephalic, atraumatic ENT: Present: mucous membranes moist - *Routine Respiratory Exam Absent: respiratory distress Comments: generally diminished with scattered rhonchi and wheezes - *Routine Cardiovascular Exam Present: RRR - *Routine Abdominal Exam Present: soft, normoactive bowel sounds. Absent: tenderness, distended, guarding, firm, rigid - *Routine Extremities Exam Present: full ROM, pulses intact. Absent: edema, tenderness - *Routine Neurological Exam Present: alert, oriented X3, moving all extremities, normal speech <Velma Staples - 09/07/20 22:22> Results Labs on day of discharge: Preliminary micro results at discharge 09/02/20 11:14 Blood Culture - Preliminary Blood Micrococcus luteus <Velma Staples - 09/07/20 22:22> DS: Diagnos
== END 2020-09-04 12:30 | disposition home health service (06) ==
LOC: ER 11:35 → 2ND 11:52
PROVIDERS: Admitting Provider Family Medicine; Emergency Provider Emergency Medicine; PCP Family Medicine; Visit Provider Family Medicine
DX: J44.1 Chronic obstructive pulmonary disease with (acute) exacerbation (principal); Z79.899 Other long term (current) drug therapy; Z88.8 Allergy status to other drugs, medicaments and biological substances; Z79.02 Long term (current) use of antithrombotics/antiplatelets; Z99.81 Dependence on supplemental oxygen; I10 Essential (primary) hypertension; I25.10 Atherosclerotic heart disease of native coronary artery without angina pectoris; I25.2 Old myocardial infarction; J96.22 Acute and chronic respiratory failure with hypercapnia; D50.8 Other iron deficiency anemias; Z79.51 Long term (current) use of inhaled steroids; Z20.822 Contact with and (suspected) exposure to COVID-19
CPT/HCPCS: 71045; 80053; 82803; 83605; 84484; 85025; 87040; 87077; 93005; 94640; 94660; 94760; 94761; 96374; 99284; 99291; G0378; U0003

== ENCOUNTER → 2020-09-08 19:51 | Outpatient (CLI) | payer MEDICARE, MEDICAID, SELFPAY | PROVIDERS: PCP Family Medicine; Visit Provider Internal Medicine Pulmonary Disease | DX: G47.30 Sleep apnea, unspecified (principal); R06.83 Snoring; J44.9 Chronic obstructive pulmonary disease, unspecified | CPT/HCPCS: 95810 ==

== ENCOUNTER 2020-09-17 06:10 | Inpatient (IN) | payer MEDICARE, MEDICAID, SELFPAY ==
[2020-09-17] VITALS (13 sets, daily range): BP systolic 103–122; BP diastolic 61–68; PULSE 79–114; RESP 18–30; TEMP 36.7; O2SAT 82–100; BMI 24.2; BMI 22.6; BMI 22.2
--- NOTE | 2020-09-17 06:11 | XR_ITS ---
PROCEDURE INFORMATION: Exam: XR Chest Exam date and time: 09/17/2020 6:11 AM Age: 60 years old Clinical indication: Pain; On breathing; Additional info: SOA TECHNIQUE: Imaging protocol: XR of the chest. Views: 1 view. COMPARISON: CR XR CHEST PORTABLE 09/02/2020 11:18 AM FINDINGS: Lungs: Unremarkable. No consolidation. Pleural spaces: Stable blunting costophrenic sulci. No pneumothorax. Heart/Mediastinum: Unremarkable. No cardiomegaly. Bones/joints: Unremarkable. IMPRESSION: Stable chest.
--- NOTE | 2020-09-17 06:18 | ECG_ITS ---
APPROVED REPORT Exam: Resting ECG HR:94 bpm ECG Measurements Heart Rate 94 AXES TN 112 P 91 QRSd 62 QRS 76 QT 322 T 82 QTc 402 Conclusion Normal sinus rhythm Old septal changes Abnormal ECG Electronically signed by : Caden Delgadillo, 09/17/2020 21:02:00
--- NOTE | 2020-09-17 06:19 | HMH.EDGENADL ---
ED Disposition Clinical Impression: COPD exacerbation Disposition: Admitted As Inpatient Condition on Discharge: Fair Referrals: Akbar Pabon MD [Primary Care Provider] - - Critical Care Critical Care Time: No Attestation: On , the high probability of a clinically significant, sudden or life threatening deterioration of the following system(s) required my full and direct attention, intervention and personal management. The time I documented below is in addition to time spent performing reported procedures but includes the following listed in this critical care notation. Medical Decision Making - Cesar Inquiry Pt receiving controlled substance: No Vital Signs: 09/17/20 06:15 Temperature 98.0 F Temperature Source Oral Pulse Rate [Right] 114 H Respiratory Rate 30 H Blood Pressure [Right Arm] 109/68 L Blood Pressure Mean [Right Arm] 81 Blood Pressure Source [Right Arm] Automatic Cuff Blood Pressure Position [Right Arm] Supine 02 Sat by Pulse Oximetry 82 L Oxygen Delivery Method Nasal Cannula Oxygen Flow Rate (LPM) 4 - Lab Data Lab Results 09/17/20 06:11: Specimen Source Right radial, O2 % 3l nc, ABG pH 7.32 L, ABG pCO2 73.4 H, ABG pO2 46.3 L, ABG HCO3 37.3 H, ABG Total CO2 39.6 H, ABG O2 Saturation 81 L*, ABG Base Excess 11.3 H, Ashkan Test Acceptable 09/17/20 06:20: WBC 17.5 H, RBC 3.80 L, Hgb 11.2 L, Hct 34.9 L, MCV 92.1, MCH 29.5, MCHC 32.0, RDW 13.1, Plt Count 228, MPV 7.9, Neut % (Auto) 86.0 H, Lymph % (Auto) 7.7 L, Butts % (Auto) 4.5, Eos % (Auto) 1.4, Baso % (Auto) 0.5, Neut # (Auto) 15.0 H, Lymph # (Auto) 1.4, Butts # (Auto) 0.8, Eos # (Auto) 0.2, Baso # (Auto) 0.1, Total Counted 100, Neutrophils % (Manual) 86 H, Lymphocytes % (Manual) 9 L, Monocytes % (Manual) 5, Platelet Estimate Normal, RBC Morphology Normal 09/17/20 06:20: Sodium 137, Potassium 4.1, Chloride 91 L, Carbon Dioxide 40 H, Anion Gap 10.1, BUN 9, Creatinine 0.60, Estimated Creat Clear 52, Estimated GFR 101, Est GFR ( Amer) 123, Glucose 162 H, Calcium 9.5, Total Bilirubin 0.6, AST 26, ALT 20, Alkaline Phosphatase 87, Total Protein 7.2, Albumin 4.0, Globulin 3.2, Albumin/Globulin Ratio 1.3 09/17/20 06:20: Lactate 0.9 09/17/20 06:50: SARS-CoV-2 (PCR) Not detected, Influenza A Untype (PCR) Not detected, Influenza Type B (PCR) Not detected Result diagrams: 09/17/20 06:20 09/17/20 06:20 Orders (Tests/Meds): ED MEDICATIONS Generic Name Dose Route Start Last Admin Trade Name Freq PRN Reason Stop Dose Admin Albuterol/Ipratropium 3 ml 09/17/20 09:00 Ipratropium/Albuterol 3 Ml Neb IH 10/17/20 08:59 QID YASMEEN Aspirin 81 mg 09/17/20 09:00 Aspirin Ec 81mg Tablet PO 10/17/20 08:59 DAILY YASMEEN Citalopram Hydrobromide 10 mg 09/17/20 21:00 Citalopram 10mg Tablet PO 10/17/20 20:59 HS [facility] Clopidogrel Bisulfate 75 mg 09/17/20 09:00 Clopidogrel 75mg Tab PO 10/17/20 08:59 DAILY [facility] Ceftriaxone Sodium 1 gm/ 50 mls @ 100 mls/hr 09/17/20 08:00 Sodium Chloride IV 10/01/20 07:59 Q24H [facility] Protocol Azithromycin 500 mg/ Sodium 250 mls @ 250 mls/hr 09/17/20 09:00 Chloride IV 10/01/20 08:59 DAILY [facility] Protocol Non-Formulary Medication 80 mg 09/17/20 21:00 Atorvastatin Calcium [Lipitor 80mg Tab] PO 10/17/20 20:59 HS [facility] Non-Formulary Medication 200 mg 09/17/20 09:00 Metoprolol Succinate [Metoprolol Succinate 200mg Tablet*] PO 10/17/20 08:59 DAILY [facility] Non-Formulary Medication 2 puff 09/17/20 08:05 Albuterol Sulfate [Ventolin Hfa Inhaler] INHALATION 10/17/20 08:04 Q4-6H PRN Shortness Of Breath Non-Formulary Medication 2 puff 09/17/20 09:00 Budesonide/Formoterol Fumarate [Symbicort 160-4.5 Mcg Inhaler] IH 10/17/20 08:59 BID YASMEEN Non-Formulary Medication 100 mg 09/17/20 09:00 Losartan Potassium PO 10/17/20 08:59 DAILY YASMEEN Pantoprazole Sodium 40 mg 09/17/20 09:00 Pantoprazole 40mg Tablet PO 0
[2020-09-17 06:20] LABS: ABG Base Excess 11.3 mmol/L (-2.4-2.3); ABG HCO3 37.3 mmhg (22.0-26.0); ABG Oxygen Saturation 81 % (90-100); ABG PH 7.32 mmol/L (7.35-7.45); ABG TCO2 39.6 mmhg (23-27)
[2020-09-17 06:59] LABS: Basophils # 0.1 K/mm3 (0-0.2); Basophils % 0.5 % (0.1-2.0); Eosinophils # 0.2 K/mm3 (0.0-0.4); Eosinophils % 1.4 % (0.1-12.0); Hematocrit 34.9 % (37.0-47.0); Hemoglobin 11.2 g/dL (12.2-16.2); Lymphocytes # 1.4 K/mm3 (0.7-4.5); Lymphocytes % 7.7 % (10-50); Mean Corpuscular Hemoglobin 29.5 pg (27.0-31.2); Mean Corpuscular Volume 92.1 fl (81-99); Mean Platelet Volume 7.9 fl (7.4-10.4); Monocytes # 0.8 K/mm3 (0.1-1.0); Monocytes % 4.5 % (1.7-9.3); Platelet Count 228 K/mm3 (142-424); Red Cell Distribution Width 13.1 % (11.5-17.5); White Blood Count 17.5 K/mm3 (4.8-10.8)
[2020-09-17 07:02] LABS: MANUAL DIFFERENTIAL MANUAL DIFFERENTIAL (MANUAL DIFF)
[2020-09-17 07:04] LABS: Coronavirus 19, PCR Not Detected (NotDetected); Influenza A, PCR Not Detected (NotDetected); Influenza B, PCR Not Detected (NotDetected)
[2020-09-17 07:07] LABS: Alanine Aminotransferase 20 U/L (12-78); Albumin/Globulin Ratio 1.3 (1.1-1.8); Alkaline Phosphatase 87 U/L (38-126); Aspartate Amino Transferase 26 U/L (14-36); Bilirubin,Total 0.6 mg/dl (0.2-1.3); Blood Urea Nitrogen 9 mg/dl (7-17); Calcium 9.5 mg/dl (8.4-10.2); Chloride 91 mmol/L (98-107); Creatinine Clearance Estimated 52 mL/min (50-200); Estimated Glomerular Filt Rate 101 ml/min (>60); GFR (African American) 123 ML/MIN (>60); Globulin 3.2 g/dL (1.3-3.2); Glucose 162 mg/dl (74-100); Lactic Acid 0.9 mmol/L (0.7-2.1); Potassium 4.1 mmoL/L (3.5-5.1); Sodium 137 mmol/L (136-145); Total Protein,Serum 7.2 g/dl (6.3-8.2)
[2020-09-17 07:15] LABS: ABG PCO2 73.4 mmhg (35.0-45.0); ABG PO2 46.3 mmhg (80-100); Allen's Test Acceptable; Oxygen 3L NC %; Source Right Radial
[2020-09-17 07:15] LABS: Anion Gap 10.1 mEq/L (5-15)
[2020-09-17 07:18] LABS: Carbon Dioxide 40 mmol/L (22.0-30.0)
[2020-09-17 07:41] LABS: Lymphocytes % 9 % (10-50); Monocytes % 5 % (2-9); Neutrophils % 86 % (42-76); Platelet Estimate Normal; RBC Morphology Normal; Total Cells Counted 100
--- NOTE | 2020-09-17 08:11 | PC.NURSE ---
pt up to bsc, tolerated well, pt back in bed, call light within reach
--- NOTE | 2020-09-17 08:16 | PC.NURSE ---
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
--- NOTE | 2020-09-17 08:45 | PC.NURSE ---
notified care management of admission, spoke with sheila
--- NOTE | 2020-09-17 09:47 | PC.NURSE ---
report called to rasheed shelby on second floor at this time.
--- NOTE | 2020-09-17 09:49 | PC.NURSE ---
contacted RT to help with transport to second floor r/t pt is on bipap, spoke Maru stated someone will be down soon to get bipap.
--- NOTE | 2020-09-17 09:52 | PC.NURSE ---
notified rasheed shelby on second will transport pt to assigned room when RT is available to move bipap.
--- NOTE | 2020-09-17 12:52 | HMH.HP ---
*Admission Date: 09/17/20 *Chief complaint: SOA *History of present illness: The patient is a 60 year-old female with a history of COPD and CAD who presents to the emergency department with as of breath. She reports she has been short of breath and nauseous for about 1 week however it has progressively worsened. Today she called EMS and on their arrival she was on BiPAP. After a DuoNeb they were able to put the patient on nasal cannula at 4 L. She wears 2 L nasal cannula at baseline. She denies any chest pain, infectious symptoms, edemal. Differential diagnosis includes pneumonia, COPD exacerbation, ACS, pulmonary edema. Given this plan to obtain EKG, chest x-ray, CBC, CMP, ABG. The patient was given DuoNeb, hydrocortisone, and placed on BiPAP. She is hypoxic on arrival with obvious respiratory distress and significantly diminished breath sounds bilaterally. She was also given Rocephin and a azithromycin. Labs remarkable for leukocytosis. On ressessment the patient reports feeling much better and had improved oxygen saturations. She is overall much more well-appearing. Given this we will continue BiPAP and admit the patient to hospital medicine. They were consulted and admitted the patient. (above as per ER Physician) The patient has been admitted numerous times in the past few months for hypercapnic respiratory failure. She currently wears BiPAP at night and states she was doing well with the BiPAP at night and 2 L of nasal cannula during the day up until the last week. She states every morning she is woken up her oxygen saturations have been in the 80s. Most days she can take a nebulizer treatment and it increases into the 90s and she does well the rest of the day. She states this morning it was in the 70s and she was so weak she could not even do a breathing treatment, which is why she called 911. She states she had a tapering dose of steroids which she finished on Tuesday and she attributes this to the worsening shortness of breath. [facility] History I have reviewed the patient's past medical history: Yes Medical History: Reports:: Anxiety, Atherosclerotic Heart Disease, Chronic Obstructive Pulmonary Disease (COPD), Coronary Artery Disease, Gastroesophageal Reflux Disease(GERD), Home Oxygen, Hyperlipidemia, Hypertension, Myocardial Infarction, Ulcer Denies:: Cancer, Diabetes Mellitus Type 1, Diabetes Mellitus Type 2, MRSA *Have you ever received a pneumonia vaccine?: Yes *Have you received a flu vaccine this season?: Yes Other Medical History: Reports: Arthritis Other Surgeries: Yes: Cardiac Catheterization, Cholecystectomy, Colonoscopy, Coronary Stent Amputation: No Fractures: No - *Social History Smoking Status: Former smoker Tobacco Type: cigarettes # Packs/Day (cigarettes): 2 #Yrs smoked (if former smoker): 35 Alcohol Intake: never *Occupational Status:: disabled Housing: house Household Members: none *Travel in the last 8 weeks: None - Psychiatric History Pschychiatric History:: Reports:: Anxiety Family Hx:: Coronary Artery Disease, Hypertension Review of Systems - Constitutional Reports fatigue, Reports weakness, Denies fever(s) - Eyes Denies blurry vision, Denies double vision - ENT Denies nasal congestion, Denies sore throat - *Cardiovascular Reports shortness of breath, Denies chest pain - *Respiratory Reports shortness of breath, Denies chest congestion, Denies cough - *Gastrointestinal Reports nausea, Denies abdominal pain, Denies loose stools, Denies vomiting - *Genitourinary Denies difficulty urinating, Denies painful urination - *Musculoskeletal Denies joint pain - *Neurologic Reports dizziness, Reports weakness, Denies headache(s) Meds Home Medications Medication Instructions Recorded Confirmed Type Albuterol Sulfate [Ventolin HFA 2 puff INHALATION Q4-6H PRN 11/07/17 09/17/20 History Inhaler] Atorvastatin Calcium [Lipitor 80mg 80 mg PO HS 11/07/17 09/17/20 History Tab]
--- NOTE | 2020-09-17 16:22 | PC.NURSE ---
Pt has been on BIPAP majority of day, this afternoon pt was weaned to 2L NC. Has so far tolerated well, sat in mid-high 90's. Upon auscultation lungs are diminished throughout. No s/s of resp distress. Cont pulse ox in place for monitoring. She has been resting majority of shift. Pt is a standby assist when ambulating. No complaints voiced this shift. Call dank w/in reach.
[2020-09-18] VITALS (7 sets, daily range): BP systolic 105–120; BP diastolic 63–67; PULSE 88–97; RESP 20–24; TEMP 36.3–36.6; O2SAT 90–99; BMI 22.1
--- NOTE | 2020-09-18 00:24 | PC.NURSE ---
pt unable to wear bipap. put pt on 2l n/c
--- NOTE | 2020-09-18 03:29 | PC.NURSE ---
Pt has been anxious tonight. Has not tolerated Bipap. MD notified of pt status. Serax 10 mg x1 ordered. Orders carried out. Pt is currently on O2 2L NC. Pt is currently sleeping at this time. VSS. Will continue to monitor.
--- NOTE | 2020-09-18 05:57 | PC.NURSE ---
Pt lethargic this AM. Pt refused to wear Bipap last night. Pt placed on Bipap. She is currently on 50% per RT. FSBS 183. BP 140/83, P 91, 90% O2 sat at this time. MD Fall aware. No new orders.
[2020-09-18 06:22] LABS: POC Glucose,Bedside 183 (70-110)
--- NOTE | 2020-09-18 07:29 | HMH.PHAVTE ---
[facility] Pharmacy VTE Monitoring - Patient Demographics Admission date: 09/18/20 Report Date: 09/18/20 Time: 07:29 Allergies/Adverse Reactions: Patient Allergies amoxicillin Allergy (Intermediate, Verified 09/02/20 10:50) I-HIVES prednisone Adverse Reaction (Verified 09/02/20 10:50) Anxiety Height: 1.5 m Weight: 49.895 kg Patient Problems: Current Active Problems Coronary artery disease (Chronic) History of coronary artery stent placement (Chronic) Hypertension (Chronic) Hyperlipidemia (Chronic) Acute exacerbation of chronic obstructive pulmonary disease (COPD) (Acute) GERD without esophagitis (Chronic) Iron deficiency anemia (Chronic) Hypercapnic respiratory failure (Acute) - VTE Risk Labs: VTE Related Lab Results Hgb 11.2 g/dL (12.2-16.2) L 09/17/20 06:20 Hct 34.9 % (37.0-47.0) L 09/17/20 06:20 Plt Count 228 K/mm3 (142-424) 09/17/20 06:20 BUN 9 mg/dl (7-17) 09/17/20 06:20 Creatinine 0.60 mg/dl (0.52-1.04) 09/17/20 06:20 Estimated Creat Clear 52 mL/min (50-200) 09/17/20 06:20 Was VTE Risk Assessment Performed: Yes VTE Score: 5 VTE Risk Level: Low Risk Clinical Trial Participant: No - Prophylaxis VTE Prophylaxis Ordered?: Yes Types of VTE Prophylaxis: TEDS Knee High
--- NOTE | 2020-09-18 08:28 | HMH.PHAINT ---
HOME MEDICATION LIST VERIFIED USING LIST FROM CLINIC PHARMACY
--- NOTE | 2020-09-18 08:42 | HMH.ACPN2 ---
<Velma Staples - Last Filed: 09/18/20 08:42> Internal Medicine - PN: Subj *Date: 09/18/20 *Time: 08:42 Interval history: Patient is very lethargic this morning. She refused to wear BiPAP until around 5 AM. Her BiPAP is in place now but she does not arouse for exam. Exam Vital signs and Labs for Last 24 Hours: Temp Pulse Resp BP Pulse Ox 98 F 91 H 24 120/63 91 L 09/18/20 03:39 09/18/20 06:03 09/18/20 03:39 09/18/20 03:39 09/18/20 03:39 Laboratory Results - last 24 hr 09/18/20 05:51: POC Glucose 183 H I & O for Last 24 hours: Intake & Output 09/15/20 09/16/20 09/17/20 09/18/20 11:59 11:59 11:59 11:59 Intake Total 120 / 120 Balance 120 / 120 Weight 110 lb 109 lb 15.994 oz - Constitutional Comments: Does not arouse for exam - *Routine Respiratory Exam Present: decreased breath sounds (BiPAP in place) - *Routine Cardiovascular Exam Present: RRR - *Routine Abdominal Exam Present: soft, normoactive bowel sounds. Absent: tenderness - *Routine Extremities Exam Absent: cyanosis, clubbing, edema - *Routine Skin Exam Present: warm. Absent: rash - *Routine Neurological Exam Present: altered mental status Assessment and Plan (1) Acute exacerbation of chronic obstructive pulmonary disease (COPD) Status: Acute Category: Medical Code(s): J44.1 - Chronic obstructive pulmonary disease with (acute) exacerbation (2) Hypercapnic respiratory failure Problem details: Hypercapnia due to respiratory failure due to COPD Status: Acute Qualifiers: Chronicity: acute on chronic Qualified Code(s): J96.22 - Acute and chronic respiratory failure with hypercapnia Category: Medical Code(s): J96.92 - Respiratory failure, unspecified with hypercapnia (3) Coronary artery disease Status: Chronic Category: Medical Code(s): I25.10 - Atherosclerotic heart disease of [place] coronary artery without angina pectoris (4) GERD without esophagitis Status: Chronic Category: Medical Code(s): K21.9 - Gastro-esophageal reflux disease without esophagitis (5) History of coronary artery stent placement Status: Chronic Category: Surgical Code(s): Z95.5 - Presence of coronary angioplasty implant and graft (6) Hyperlipidemia Status: Chronic Category: Medical Code(s): E78.5 - Hyperlipidemia, unspecified (7) Hypertension Status: Chronic Category: Medical Code(s): I10 - Essential (primary) hypertension (8) Iron deficiency anemia Status: Chronic Category: Medical Code(s): D50.9 - Iron deficiency anemia, unspecified - Assessment and plan all Dx Assessment and Plan for all problems:: We will get ABGs and consult pulmonology this morning. <Akbar Pabon - Last Filed: 09/18/20 17:05> Internal Medicine - PN: Subj *Date: 09/18/20 *Time: 17:04 Exam Vital signs and Labs for Last 24 Hours: Temp Pulse Resp BP Pulse Ox 97.4 F L 95 H 23 105/67 L 90 L 09/18/20 08:00 09/18/20 10:15 09/18/20 08:00 09/18/20 08:00 09/18/20 08:00 Laboratory Results - last 24 hr 09/18/20 05:51: POC Glucose 183 H 09/18/20 08:25: Specimen Source L radial, O2 % 60, ABG pH 7.12 L*, ABG pCO2 142.2 H, ABG pO2 105.7 H, ABG HCO3 45.3 H, ABG Total CO2 49.7 H, ABG O2 Saturation 97, ABG Base Excess 16.0 H, Ashkan Test Acceptable, Vent Rate 20, Tidal Volume Bipap 20/7 09/18/20 11:31: Specimen Source Left brachial, O2 % 50, ABG pH 7.17 L*, ABG pCO2 124.0 H, ABG pO2 108.9 H, ABG HCO3 43.7 H, ABG Total CO2 47.5 H, ABG O2 Saturation 98, ABG Base Excess 15.1 H, Ashkan Test Patient unable, Vent Rate 20, Tidal Volume bipap 20/7 I & O for Last 24 hours: Intake & Output 09/16/20 09/17/20 09/18/20 09/19/20 11:59 11:59 11:59 11:59 Intake Total 120 / 120 0 / 0 Balance 120 / 120 0 / 0 Weight 110 lb 109 lb 15.994 oz Assessment and Plan (1) Acute exacerbation of chronic obstructive pulmonary disease (COPD) Status: Acute Category: Medical Code(
[2020-09-18 09:18] LABS: ABG HCO3 45.3 mmhg (22.0-26.0); ABG Oxygen Saturation 97 % (90-100); ABG PO2 105.7 mmhg (80-100); ABG TCO2 49.7 mmhg (23-27)
[2020-09-18 09:21] LABS: Allen's Test ACCEPTABLE; Oxygen 60 %; Source L RADIAL; Tidal Volume BIPAP 20/7; Vent Rate 20
[2020-09-18 09:22] LABS: ABG PCO2 142.2 mmhg (35.0-45.0); ABG PH 7.12 mmol/L (7.35-7.45)
--- NOTE | 2020-09-18 10:00 | HMH.PULMCON ---
*Admission Date: 09/18/20 *Reason for consult:: Acute on chronic hypoxic hypercarbic respiratory failure. *History of present illness: Ms. Adame is 60-year-old female history of chronic hypoxic hypercarbic respiratory failure, COPD, CAD inhaler therapy was presented hospital worsening respiratory failure altered mentation found to be in hypercarbic respiratory failure and pulmonary was called for further management. [facility] History Medical History: Reports:: Anxiety, Atherosclerotic Heart Disease, Chronic Obstructive Pulmonary Disease (COPD), Coronary Artery Disease, Gastroesophageal Reflux Disease(GERD), Home Oxygen, Hyperlipidemia, Hypertension, Myocardial Infarction, Ulcer Denies:: Cancer, Diabetes Mellitus Type 1, Diabetes Mellitus Type 2, MRSA *Have you ever received a pneumonia vaccine?: Yes *Have you received a flu vaccine this season?: Yes Other Medical History: Reports: Arthritis Other Surgeries: Yes: Cardiac Catheterization, Cholecystectomy, Colonoscopy, Coronary Stent Amputation: No Fractures: No - *Social History Smoking Status: Former smoker Tobacco Type: cigarettes # Packs/Day (cigarettes): 2 #Yrs smoked (if former smoker): 35 Alcohol Intake: never *Occupational Status:: disabled Housing: house Household Members: none *Travel in the last 8 weeks: None - Psychiatric History Pschychiatric History:: Reports:: Anxiety Family Hx:: Coronary Artery Disease, Hypertension ROS - Review of Systems Review of systems:: unable to obtain Unable to obtain as patient is altered Meds Home Medications Medication Instructions Recorded Confirmed Type Albuterol Sulfate [Ventolin HFA 2 puff INHALATION Q4-6H PRN 11/07/17 09/17/20 History Inhaler] Atorvastatin Calcium [Lipitor 80mg 80 mg PO HS 11/07/17 09/17/20 History Tab] Budesonide/Formoterol Fumarate 2 puff IH BID 11/07/17 09/17/20 History [Symbicort 160-4.5 Mcg Inhaler] Clopidogrel Bisulfate [Plavix 75mg 75 mg PO DAILY 11/07/17 09/17/20 History Tab] Pantoprazole Sodium [Protonix 40mg 40 mg PO DAILY 11/07/17 09/17/20 History tablet] Spironolactone [Spironolactone 12.5 mg PO DAILY 11/07/17 09/17/20 History 25mg Tablet] Tiotropium Mclean [Spiriva 1 puff IH DAILY 11/07/17 09/17/20 History 18mcg/puff inhaler] Aspirin [Lo-Dose Aspirin EC] 81 mg PO DAILY 11/08/17 09/17/20 History Losartan Potassium 100 mg PO DAILY 07/17/18 09/17/20 History Metoprolol Succinate [Metoprolol 200 mg PO DAILY 09/02/20 09/17/20 History Succinate 200mg Tablet*] Ipratropium/Albuterol Sulfate 3 ml IH QID 09/04/20 09/17/20 History [Duoneb 3mL neb] Citalopram Hydrobromide 10 mg PO HS 09/17/20 09/17/20 History [Citalopram 10mg Tablet] Buspirone HCl [Buspar 5mg tablet] 5 mg PO BID 09/18/20 09/18/20 History Sucralfate [Sucralfate 1gm 1 gm PO DAILY 09/18/20 09/18/20 History Tab] Allergies Allergy/AdvReac Type Severity Reaction Status Date / Time amoxicillin Allergy Intermediate I-HIVES Verified 09/02/20 10:50 prednisone AdvReac Anxiety Verified 09/02/20 10:50 Exam - Constitutional Constitutional:: Absent: no acute distress, comfortable - HENMT Exam HENMT: Present: normocephalic, atraumatic - Neck Exam Neck:: Present: thyroid normal - Respiratory Exam Respiratory:: Present: respiratory distress, decreased breath sounds. Absent: able to speak in complete sentences, normal respiratory effort - Cardiovascular Exam Cardiac:: Present: S1, S2 - Skin Exam Skin: Present: warm, no rash - Neurological Exam Neurological: Absent: alert, awake, normal cognition, oriented X3 - Extremities Exam Extremities: Present: no cyanosis, no clubbing, no edema Internal Medicine - CN: Reslt - Labs CBC & Chem 7: 09/17/20 06:20 09/17/20 06:20 - ABG Interpretation ABG results: 09/17/20 09/18/20 06:11 08:25 ABG pH 7.32 L 7.12 L* ABG pCO2 73.4 H 142.2 H ABG pO2 46.3 L 105.7 H ABG HCO3 37.3 H 45.3 H
[2020-09-18 13:01] LABS: ABG Base Excess 15.1 mmol/L (-2.4-2.3); ABG HCO3 43.7 mmhg (22.0-26.0); ABG Oxygen Saturation 98 % (90-100); ABG PO2 108.9 mmhg (80-100); ABG TCO2 47.5 mmhg (23-27)
[2020-09-18 13:02] LABS: Oxygen 50 %; Vent Rate 20
[2020-09-18 13:03] LABS: Allen's Test Patient Unable; Source Left Brachial
[2020-09-18 13:05] LABS: ABG PH 7.17 mmol/L (7.35-7.45)
--- NOTE | 2020-09-18 13:29 | PC.NURSE ---
Sister, Teresita Crum called was called @ this time. Notified of current plan of care. Pt is to be intubated per Dr. Reyes.
--- NOTE | 2020-09-18 14:00 | PC.NURSE ---
Addendum entered by Gudelia Green RN 09/18/20 15:14: Patient arrived to unit, bed 263 at 1350 with staff from med/surg. Original Note: Patient arrived to the unit, bed 262 at 1400 with staff form med/surg. Dr. Reyes at bedside. Verbal orders given to Cary Casarez RN for intubation. Patient rec'd 50mg ETOMidate at 1407 and 100mg of Roccuronium. Patient was intubated by Dr. Reyes at 1413, 7.5 ET tube and 24 at the lip to the right. Cary Casarez RN placed OG at 65 at the lip. Verbal orders from Dr. Reyes to Cary Casarez RN for CXR, ABG at 1500, fentanyl drip and propofol drip, place indwelling ricks catheter, and obtain UA. 16Fr indwelling ricks catheter placed with 10cc balloon, urine yellow and clear with 330 mL's out. Vent settings: 50% AC, 22 rate, 8 PEEP, 450 tidal volume, and no pressure support.
--- NOTE | 2020-09-18 14:00 | PC.NURSE ---
Patient arrived to the unit, bed 262 at 1350 with staff form med/surg. Dr. Reyes at bedside. Verbal orders given to Cary Casarez RN for intubation. Patient rec'd 50mg ETOMidate at 1407 and 100mg of Roccuronium. Patient was intubated by Dr. Reyes at 1413, 7.5 ET tube and 24 at the lip to the right. Cary Casarez RN placed OG at 65 at the lip. Verbal orders from Dr. Reyes to Cary Casarez RN for CXR, ABG at 1500, fentanyl drip and propofol drip, place indwelling ricks catheter, and obtain UA. 16Fr indwelling ricks catheter placed with 10cc balloon, urine yellow and clear with 330 mL's out. Vent settings: 50% AC, 22 rate, 8 PEEP, 450 tidal volume, and no pressure support.
--- NOTE | 2020-09-18 14:44 | XR_ITS ---
PROCEDURE: XR CHEST PORTABLE CLINICAL HISTORY: intubation Respiratory failure COMPARISON: CT CT CHEST WO CON from 11/01/2018 CR XR CHEST PORTABLE from 07/31/2020 CR XR CHEST PORTABLE from 09/02/2020 CR XR CHEST PORTABLE from 09/17/2020 FINDINGS: 1444 hours Endotracheal tube is in good position 5 cm above the lyly. Nasogastric tube tip is in good position in the region the fundus of the stomach. There are bilateral prominent pneumothoraces. The pneumothorax on the right is mainly contained in the lung base measuring 7 cm in with. Basilar component also noted of the left pneumothorax also with a prominent lateral component measuring up to 3.5 cm. There may be a nondisplaced left 4th rib fracture. Mildly displaced left 5th rib fracture laterally. Overlying monitor and lead wires are present. Right lower chest is not included on the image. COPD changes noted. IMPRESSION: Endotracheal tube and nasogastric tube in good position. Moderate to large bilateral pneumothoraces with left 5th and 4th rib fractures. ICU was called with the findings 3 p.m. 09/18/2020 with result given to Summer Dictated by: Ashkan Gautam MD 09/18/2020 15:05 Ashkan Gautam MD in OV 09/18/2020 15:05
--- NOTE | 2020-09-18 14:50 | PC.NURSE ---
Pt transported by bed to ICU, room 262 @ 1350. Report given to Carmella CareyRN
--- NOTE | 2020-09-18 15:27 | PC.NURSE ---
Addendum entered by Gudelia Green RN 09/18/20 16:01: Error, [facility] not notified of at 1513, awaiting case number from [facility]. Original Note: 1435: Code Blue called, patient pulse 30's and then asystole 1436: Chest compressions started, Epi 1mg given by Holley FOSTER 1438: Epi 1mg given by Holley FOSTER 1439: No pulse identified, chest compressions continue 1440: Epi 1mg given by Holley FOSTER 1442: Dr. Reyes arrived at bedside 1443: Bicarb given by Holley FOSTER 1443: No pulse identified, chest compressions continue 1444: VO for Stat CXray per Dr. Reyes 1445: Epi 1mg given by Holley FOSTER 1445: FSBS 98 1446: No pulse identified, chest compressions continue 1448: Epi 1mg given by Holley FOSTER 1449: No pulse identified, chest compressions continue Sisters in waiting area. Dr. Pabon and Dr. Reyes speaking with them. 1451: Bicarb given by Holley FOSTER 1452: Dr. Reyes wanted patient shocked with 200 shamar, biphasic, no rhythm identified 1452: Compressions continue 1454: Epi 1mg given by Holley FOSTER 1455: No pulse identified, chest compressions continue 1456: Efforts terminated by Dr. Reyes Family in waiting area and notified. 1502: Post mortem care provided to patient. 1512: CRISTIAN Babb: Notified [facility] and spoke with Salina. Salina stated she will call back with a case number. 1513: [facility] called and notified of .
--- NOTE | 2020-09-18 16:26 | PC.NURSE ---
received call from CHRISTOFER Kramer) stating that pt's family has declined organ donation. Pt's remains may be released to home. . [facility] home contacted for body removal.
[2020-09-19 01:03] LABS: POC Glucose,Bedside 98 (70-110)
--- NOTE | 2020-09-22 22:32 | HMH.DCSUM ---
General - General Admission date:: 09/17/20 <Akbar Pabon - 10/01/20 19:05> 09/17/20 <Velma Staples - 09/22/20 22:37> Discharge date: 09/18/20 <JhoanVelma - 09/22/20 22:37> HPI HPI: The patient is a 60 year-old female with a history of COPD and CAD who presents to the emergency department with as of breath. She reports she has been short of breath and nauseous for about 1 week however it has progressively worsened. Today she called EMS and on their arrival she was on BiPAP. After a DuoNeb they were able to put the patient on nasal cannula at 4 L. She wears 2 L nasal cannula at baseline. She denies any chest pain, infectious symptoms, edemal. Differential diagnosis includes pneumonia, COPD exacerbation, ACS, pulmonary edema. Given this plan to obtain EKG, chest x-ray, CBC, CMP, ABG. The patient was given DuoNeb, hydrocortisone, and placed on BiPAP. She is hypoxic on arrival with obvious respiratory distress and significantly diminished breath sounds bilaterally. She was also given Rocephin and a azithromycin. Labs remarkable for leukocytosis. On ressessment the patient reports feeling much better and had improved oxygen saturations. She is overall much more well-appearing. Given this we will continue BiPAP and admit the patient to hospital medicine. They were consulted and admitted the patient. (above as per ER Physician) The patient has been admitted numerous times in the past few months for hypercapnic respiratory failure. She currently wears BiPAP at night and states she was doing well with the BiPAP at night and 2 L of nasal cannula during the day up until the last week. She states every morning she is woken up her oxygen saturations have been in the 80s. Most days she can take a nebulizer treatment and it increases into the 90s and she does well the rest of the day. She states this morning it was in the 70s and she was so weak she could not even do a breathing treatment, which is why she called 911. She states she had a tapering dose of steroids which she finished on Tuesday and she attributes this to the worsening shortness of breath. <Velma Staples - 09/22/20 22:37> Hospital Course Hospital Course: The patient's chest x-ray showed a stable chest. She was placed on BiPAP with sats at 100%. She was started on Zithromax and Rocephin along with IV steroids and labs were ordered for the next morning. By 09/18/2020, the patient was extremely lethargic. She had refused to wear her BiPAP until around 5 AM that morning. Her BiPAP was in place but she did not arouse for exam. ABGs were ordered stat and pulmonology was consulted. Her repeat ABG showed a pH of 7.12, a PCO2 of 142.2, and a PO2 of 105.7. She was seen in consultation by pulmonology. He initiated IV steroids and aggressive inhaler therapy and ordered a repeat blood gas in 2 hours. The patient's ABGs did not improve significantly and he felt she would need to be intubated. He discussed the plan with the patient's family and proceeded with intubation. Unfortunately the patient had a cardiopulmonary arrest and CPR was initiated. After discussions with the family, resuscitation efforts were terminated as per family's wishes after 20 minutes into the code and she was pronounced . <Velma Staples - 09/22/20 22:37> Objective Vital signs: Temp Pulse Resp BP Pulse Ox 97.4 F L 95 H 23 105/67 L 99 09/18/20 08:00 09/18/20 10:15 09/18/20 08:00 09/18/20 08:00 09/18/20 14:20 <PepperAkbar Solitario - 10/01/20 19:05> Temp Pulse Resp BP Pulse Ox 97.4 F L 95 H 23 105/67 L 99 09/18/20 08:00 09/18/20 10:15 09/18/20 08:00 09/18/20 08:00 09/18/20 14:20 <Velma Staples - 09/22/20 22:37> Narrative: - Constitutional Comments: Does not arouse for exam - *Routine Respiratory Exam Present: decreased breath sounds (BiPAP in place) - *Routine Cardiovascular Exam Present: RRR - *Routine Abdominal Exam Pres
== END 2020-09-18 17:49 | disposition expired | DRG 208 ==
LOC: ER 08:15 → 2ND 11:32 → ICU 09-18 14:07
PROVIDERS: Internal Medicine Pulmonary Disease; Admitting Provider Family Medicine; Emergency Provider Emergency Medicine; PCP Family Medicine; Visit Provider Family Medicine
DX: J96.21 Acute and chronic respiratory failure with hypoxia (principal); J44.1 Chronic obstructive pulmonary disease with (acute) exacerbation; J96.22 Acute and chronic respiratory failure with hypercapnia; Z20.822 Contact with and (suspected) exposure to COVID-19; I25.10 Atherosclerotic heart disease of native coronary artery without angina pectoris; I46.9 Cardiac arrest, cause unspecified; K21.9 Gastro-esophageal reflux disease without esophagitis; I10 Essential (primary) hypertension; E78.5 Hyperlipidemia, unspecified; Z99.81 Dependence on supplemental oxygen; Z95.5 Presence of coronary angioplasty implant and graft; I25.2 Old myocardial infarction; D50.9 Iron deficiency anemia, unspecified; F41.9 Anxiety disorder, unspecified
CPT/HCPCS: 31500 ×2; 94002; 71045; 80053; 82803; 82962; 83605; 85007; 85025; 87040; 93005; 94640; 94660; 96374; 96375; 99285; J0456; J2405; U0003